=== PATIENT | male | born 1960 | race Caucasian/White ===

== ENCOUNTER 2025-02-14 06:40 | Inpatient (IN) | payer OTHER, SELFPAY ==
[2025-02-14] VITALS (17 sets, daily range): BP systolic 111–148; BP diastolic 67–90; PULSE 53–91; RESP 19–26; TEMP 36.9–37.3; O2SAT 91–95; BMI 29.0
--- NOTE | 2025-02-14 | ECHO_ITS ---
Patient Info Name: Moi Aguilar Age: 64 years : 1960 Gender: Male Ht: 67 in Wt: 185 lbs BSA: 2.01 m2 HR: 71 bpm BP: 124 / 69 mmHg Technical Quality: Good Exam Date: 02/14/2025 2:37 PM Patient Status: I Admit Date: 02/16/2025 Exam Type: CA echo dop bubble study w con Complete two-dimentional, color flow and Doppler transthoracic echocardiogram is performed with agitated saline and with contrast to opacify the left ventricle and to improve the delineation of the left ventricle endocardial borders. Staff Referring Physician: Shivani Wei Sales Superintendent: Idania Lee Attending Provider: Tucker Murray Contrast/Agitated Saline Contrast/Ag. Saline: Definity Amount: 2.00 ml Contrast/Ag. Saline: Agitated Saline Amount: 20.00 ml Summary 1. Mild LV enlargement, mild LVH, moderate LV systolic dysfunction, EF 35-40%; diastolic dysfunction is present. Inferior wall appears to be hypokinetic. Mild biatrial enlargement. Bubble study was performed, somewhat inadequate with suboptimal image quality, no large interatrial shunt was noted. Mild MR. Aortic valve is mildly sclerotic, mild aortic valve stenosis, maximum velocity 1.6 m/sec, mean gradient 11 mmHg. Unable to assess RVSP due to inadequate TR jet. Dilated IVC. Left Ventricular Outflow Tract Name Value Normal LVOT 2D LVOT Diameter 2.0 cm LVOT Doppler LVOT Peak Velocity 144 cm/s LVOT Peak Gradient 8 mmHg LVOT Mean Gradient 3 mmHg LVOT VTI 25 cm LVOT Stroke Volume 77 ml LVOT CO 5.4 l/min LVOT CI 2.7 l/min/m2 Pulmonic Valve Name Value Normal RVOT Doppler RVOT Peak Velocity 84 cm/s RVOT Peak Gradient 3 mmHg PV Doppler PV Peak Velocity 99 cm/s PV Peak Gradient 4 mmHg Mitral Valve Name Value Normal MV Diastolic Function MV E Peak Velocity 110 cm/s MV A Peak Velocity 40 cm/s MV E/A 2.8 MV Decel Time (PW) 192 ms MV Annular TDI MV E/e' (Septal) 16.4 MV E/e' (Lateral) 12.7 MV E/e' (Average) 14.6 Aortic Valve Name Value Normal AV Doppler AV Peak Velocity 166 cm/s AV Peak Gradient 11 mmHg AV Area (Cont Eq Odell) 2.6 cm2 AV DI (Odell) 0.87 AV Regurgitation 2D LVOT Area 3.0 cm2 Ventricles Name Value Normal LV Dimensions 2D/MM IVS Diastolic Thickness (2D) 1.0 cm 0.6-1.0 LVID Diastole (2D) 5.7 cm 4.2-5.8 LVIW Diastolic Thickness (2D) 1.2 cm 0.6-1.0 LVID Systole (2D) 4.7 cm 2.5-4.0 LVOT Diameter 2.0 cm LV Mass (2D Cubed) 250.68 g 88.00-224.00 LV Mass Index (2D Cubed) 124 g/m2 49-115 Relative Wall Thickness (2D) 0.41 <=0.42 LV Fractional Shortening/Ejection Fraction 2D/MM LV Fractional Shortening (2D) 19 % 25-43 LV EF (2D Teichholz) 38 % LV Diastolic Volume (4C MOD) 228 ml LV EF (4C MOD) 31 % LV Diastolic Volume (2C MOD) 261 ml LV EF (2C MOD) 36 % LV Diastolic Volume (BP MOD) 251 ml 62-150 LV Diastolic Volume Index (BP MOD) 125 ml/m2 34-74 LV Systolic Volume (BP MOD) 166 ml 21-61 LV Systolic Volume Index (BP MOD) 83 ml/m2 11-31 LV EF (BP MOD) 34 % 52-72 LV Diastolic Length (4C) 9.9 cm LV Systolic Length (4C) 8.4 cm LV Stroke Volume (4C MOD) 71 ml [place] Name Value Normal LA Dimensions LA Volume (4C A-L) 62 ml LA Volume (BP A-L) 69 ml RA Dimensions RA Systolic Major [place] Length (4C) 5.5 cm 2.1-2.7 RA Area (4C) 20.0 cm2 <=18.0 Report Signatures Amended by Sharad Dewey MD on 02/18/2025 12:03 PM
--- NOTE | ~2025-02-14 | CT_ITS ---
CTA CHEST CLINICAL HISTORY: hypoxia . COMPARISON: Chest x-ray today TECHNIQUE: Helical CTA performed from thoracic inlet to upper abdomen IV contrast information not listed in PACS Coronal, sagittal reformats. Multiplanar MIPS CT images acquired with automatic exposure control for dose reduction DLP: 666 mGy-cm FINDINGS: Significant respiratory motion artifact. Pulmonary arteries: No PE identified. Thoracic Aorta: No dissection or aneurysm. Heart/pericardium: Enlarged. RV/LV ratio: Normal. Lungs/Pleura: Interlobular septal thickening. Moderate pleural effusions. Tracheobronchial tree: Patent. Central peribronchial thickening. Nodes: No enlarged nodes. Bones: No acute bony abnormality. Soft tissues: Unremarkable. Visualized upper abdomen: Hepatomegaly, with steatosis. Probable small left adrenal adenoma. IMPRESSION: 1. No PE identified. 2. Interstitial pulmonary edema. 3. Moderate pleural effusions. 4. Cardiomegaly. Reviewed, dictated and finalized at location R.
--- NOTE | ~2025-02-14 | XR_ITS ---
Examination: XR chest 1V portable Clinical History: Shortness of breath Comparison: None Technique: Portable AP Findings: Heart size enlarged. Mildly increased interstitial markings. No acute bony abnormality. IMPRESSION: 1. Interstitial pulmonary edema and/or pneumonitis. 2. Mild cardiomegaly. Reviewed, dictated and finalized at location R.
--- NOTE | ~2025-02-14 | XR_ITS ---
EXAMINATION: XR chest 1V portable COMPARISON: No comparisons available. HISTORY: chf/shortness of breath FINDINGS: The lungs are clear, no effusion. No pneumothorax. Heart is normal size. Mediastinal and hilar contours are within normal limits. Bony thorax no acute abnormality. Miscellaneous: None Impression: No acute cardiopulmonary abnormality. Reviewed, dictated and finalized at location P. Impression: No acute cardiopulmonary abnormality.
--- NOTE | ~2025-02-14 | CT_ITS ---
EXAMINATION: CT diagnostic chest wo con DATE: 02/18/2025 10:08 INDICATION: SOB requiring oxygen TECHNIQUE: Computed tomography (CT) of the chest was performed without intravenous contrast. Additional 3D reconstructions utilizing coronal maximum intensity projection (MIP) were performed. Automated exposure control and iterative reconstruction technique were employed. The dose-length product was 28 2.35 mGy-cm. COMPARISON: None FINDINGS: Mild emphysema. Tiny bilateral pleural effusions. Dependent groundglass opacities in the bilateral lower lobes due to at least in part to mild atelectasis. There is also mild smooth septal line thickening at the bilateral lung bases suggesting minimal superimposed pulmonary edema. Calcified nodule left lower lobe consistent with old granulomatous disease. Heart size is normal. Atherosclerotic coronary artery calcific location. Small pericardial effusion. Thoracic aorta is normal in caliber. No pathologically enlarged thoracic lymphadenopathy. And visualized upper abdomen is unremarkable. Mild thoracic spondylosis. IMPRESSION: 1. Likely termination mild atelectasis and mild pulmonary edema along with tiny bilateral pleural effusions in the dependent lower lungs. 2. Mild emphysema. 3. Small pericardial effusion. Reviewed, dictated and finalized at location A.
--- NOTE | ~2025-02-14 | US_ITS ---
US venous doppler UE RT HISTORY: Pain and swelling in the right upper extremity. COMPARISON: None available. TECHNIQUE: The deep veins of the right upper extremity were evaluated with Duplex Doppler, color Doppler, and high-resolution B-mode sonography. Evaluated veins include the subclavian, axillary and brachial veins. The superficial veins including the cephalic, radial and ulnar veins were also evaluated. Cursory examination of the internal jugular veins were obtained bilaterally. Compression and augmentation maneuvers were performed. FINDINGS: The deep veins of the right upper extremity were compressible and demonstrated spontaneous phasic waveforms with an appropriate response to augmentation maneuvers. The visualized veins demonstrated normal patency. Noncompressible vessel within the antecubital fossa. IMPRESSION: Noncompressible vessel within the antecubital fossa may represent thrombus. There was no sonographic evidence of deep vein thrombosis in the right upper extremity. Reviewed, dictated and finalized at location S. IMPRESSION: Noncompressible vessel within the antecubital fossa may represent thrombus. There was no sonographic evidence of deep vein thrombosis in the right upper ex tremity.
--- NOTE | 2025-02-14 06:49 | ECG_ITS ---
Test Date: 2025-02-14 06:49:21 Measurements Intervals [place] Rate: 56 P: 0 KS: 0 QRS: -73 QRSD: 133 T: 81 QT: 459 QTc: 444 Interpretive Statements SINUS RHYTHM WITH COMPLETE HEART BLOCK JUNCTIONAL ESCAPE RHYTHM RIGHT BUNDLE BRANCH BLOCK INFERIOR INFARCT, AGE INDETERMINATE BASELINE ARTIFACT- II, III, AVF ABNORMAL ECG No previous ECG available for comparison Electronically Signed On 02-14-2025 07:43:24 CDT by Ravin Ruelas D.O.
[2025-02-14 07:06] LABS: Hematocrit 47.0 % (42.0-52.0); Hemoglobin 15.6 g/dL (14.0-18.0); Immature Granulocyte Percent A 0.6 % (0-0.5); Lymphocytes Absolute Auto 1.71 K/mm3 (0.9-3.2); Mean Corpuscular HGB Conc 33.2 g/dl (32-36); Mean Corpuscular Hemoglobin 29.7 pg (26-34); Mean Corpuscular Volume 89.4 fl (80-100); Nucleated Red Blood Cells Absolute Auto 0.000 K/mm3 (0.0-0.012); Nucleated Red Blood Cells Perc 0.0 % (0.0-0.2); Platelet Count Result 285 k/mm3 (150-375); Red Blood Count 5.26 M/mm3 (4.6-6.20); White Blood Count 14.3 K/mm3 (4.5-10.0)
[2025-02-14 07:22] LABS: Alanine Aminotransferase 30 U/L (6-50); Albumin Level 3.8 g/dL (3.5-5.1); Alkaline Phosphatase 86 U/L (38-126); Anion Gap 8 mmol/L (4-12); Aspartate Amino Transferase 35 U/L (17-59); Bilirubin,Total 1.0 mg/dL (0.2-1.3); Blood Urea Nitrogen 25 mg/dL (9-20); Calcium 9.0 mg/dL (8.4-10.2); Carbon Dioxide 25 mmol/L (22-30); Chloride 97 mmol/L (98-107); Estimated CRCL calculation 67 ml/min; Estimated Glomerular Filt Rate > 60; Glucose 313 mg/dL (65-110); Magnesium 2.0 mg/dL (1.6-2.3); Potassium 4.3 mmol/L (3.4-5.0); Sodium 130 mmol/L (137-145); Total Protein 6.7 g/dL (6.3-8.2)
--- NOTE | 2025-02-14 07:24 | ED_ITS ---
HPI - General Adult General Chief complaint: Shortness of Breath/Dyspnea Stated complaint: Shortness of Breath Time Seen by Provider: 02/14/25 06:54 History of Present Illness HPI narrative: 64-year-old male presents to the emergency department for evaluation for worsening exertional shortness of breath over the past 2 days. Patient does report multiple coworkers are sick with similar symptoms. Patient denies any chest pain but does have some shortness breath. Patient denies any abdominal pain. Does report the shortness breath is worsened with exertion. Patient was saturating at 90% room air Related Data Home Medications ?Medication ?Instructions ?Recorded ?Confirmed ?Last Taken ?Type No Home Medications 02/14/25 02/14/25 U nknown History Allergies Allergy/AdvReac Type Severity Reaction Status Date / Time No Known Allergies Allergy Verified 02/14/25 15:56 Review of Systems 2 Review of Systems: All systems reviewed & are unremarkable except as noted in HPI and below PMFSH Social History Social History Smoking packs per day: 1.5 Smoking cigarettes per day: 30.0 Years smoked: 43 Smoking pack-years: 64.50 Smoking status: Current every day smoker Tobacco type: cigarettes Alcohol intake: never Substance use: never Lack of Transportation: No Lack of Food: Never True Current Housing: I Have Housing Concerned About Future Housing: No Difficulty Paying Gas/Electric Bills: No Difficulty Paying for Meds: No Currently Unemployed: No Education: High School Diploma/GED Difficulty w/ Childcare or Family Care: No Spiritual care concerns: No Exam 2 Narrative: APPEARANCE: Well appearing, no pain, no distress, well-nourished. HEAD: normocephalic, atraumatic. EYES: PERRLA/EOMI, conjunctivae clear. NOSE: Normal no drainage EARS:TMS clear with good light reflex. THROAT: Pharynx clear, no exudate. NECK: Supple. No adenopathy, no masses. RESPIRATORY: Airway patent, respirations nonlabored. Clear to auscultation bilaterally, no rales, rhonchi, wheezing. CARDIOVASCULAR: Regular rate and rhythm without murmurs rubs or gallops. ABDOMINAL: Soft, nontender, nondistended, normal bowel sounds MUSCULOSKELETAL: Moves all extremities. Strength/ROM intact, No edema, No calf tenderness. NEURO: Alert. Cranial nerves II through XII intact. Good gait. Good coordination SKIN: Warm, dry. Normal Color Course Vital Signs Vital signs: Vital Signs Pulse Oximetry 91 02/14/25 06:57 Oxygen Delivery Room Air 02/14/25 06:57 Temperature 98.5 F 02/14/25 16:00 Pulse Rate 54 L 02/14/25 16:00 Respiratory Rate 20 02/14/25 16:00 Blood Pressure 126/69 02/14/25 16:00 Pulse Oximetry 94 02/14/25 16:00 Oxygen Delivery Nasal Cannula 02/14/25 08:13 Oxygen Flow Rate 4 02/14/25 08:13 Medical Decision Making MDM Narrative Medical decision making narrative: 64-year-old male presents emergency department for evaluation for worsening shortness of breath. Patient did develop an oxygen requirement emergency department. Patient does not typically require oxygen. Patient does have an elevated leukocytosis of 14.3 and hemoglobin of 15.6. INR is 1.2. Patient did have an elevated D-dimer 0.76. CTA was negative for pulmonary embolism but did show evidence of interstitial edema and pleural effusions. No significant abnormalities on his ABG. No significant abnormalities on his CMP other than hyperglycemia. Patient's proBNP was elevated 6540. Patient was negative influenza RSV and for COVID. Case was discussed with hospitalist patient was accepted for admission. Patient was treated with IV Lasix in the emergency department. Differential Diagnosis Differential Diagnosis: Pneumonia, COVID, RSV influenza, CHF, pleural effusion Vital Signs Vital Signs: Vital Signs Pulse Oximetry 91 02/14/25 06:57 Oxygen Delivery Room Air 02/14/25 06:57 Temperature 98.5 F 02/14/25 16:00 Pulse Rate 54 L 02/14/25 16:00 Respiratory Rate 20 02/14/25 16:00 Blood Pressure 126/69 02/14/25 16:00 Pulse Oximetry 94 02/14/25 16:00 Oxygen Delivery Nasal Cannula 02/14/25 08:13 Oxygen Flow Rate 4 02/14/25 08:13 Lab Data Lab results reviewed: Yes I reviewed the patient's lab results. 02/14/25 06:57 02/14/25 06:57 Labs: Lab Results 02/14/25 02/14/25 02/14/25 Range/Units 06:57 07:05 07:23 WBC 14.3 H (4.5-10.0) K/mm3 RBC 5.26 (4.6-6.20) M/mm3 Hgb 15.6 (14.0-18.0) g/dL Hct 47.0 (42.0-52.0) % MCV 89.4 (80-100) fl MCH 29.7 (26-34) pg MCHC 33.2 (32-36) g/dl RDW 14.0 (11.5-14.5) % Plt Count 285 (150-375) k/mm3 MPV 10.9 H (7.4-10.4) fl Immature Gran % (Auto) 0.6 H (0-0.5) % Neut % (Auto) 77.9 H (45.5-73.1) % Lymph % (Auto) 12.0 L (18.3-44.2) % [place] % (Auto) 8.3 (2.6-8.5) % Eos % (Auto) 0.6 (0-4.4) % Baso % (Auto) 0.6 (0.2-1.2) % Lymph # (Auto) 1.71 (0.9-3.2) K/mm3 [place] # (Auto) 1.2 H (0.1-0.6) K/mm3 Eos # (Auto) 0.1 (0-0.3) K/mm3 Baso # (Auto) 0.1 (0.0-0.1) K/mm3 Abs Immat Gran (auto) 0.08 H (0.00-0.031) K/mm3 Absolute Neuts (auto) 11.1 H (1.3-6.7) K/mm3 Absolute Nucleated RBC 0.000 (0.0-0.012) K/mm3 Nucleated RBC % 0.0 (0.0-0.2) % PT 14.6 (11.1-14.7) Seconds INR 1.2 APTT 30.3 (22.3-36.8) Seconds D-Dimer 0.76 H (<0.48) ug/mL Methemoglobin (0-1.5) %THb Sodium 130 L (137-145) mmol/L Potassium 4.3 (3.4-5.0) mmol/L Chloride 97 L (98-107) mmol/L Carbon Dioxide 25 (22-30) mmol/L Anion Gap 8 (4-12) mmol/L BUN 25 H (9-20) mg/dL Creatinine 0.94 (0.7-1.3) mg/dL Estim Creat Clear Calc 67 ml/min Estimated GFR > 60 (59 - ) Glucose 313 H (65-110) mg/dL Calcium 9.0 (8.4-10.2) mg/dL Magnesium 2.0 (1.6-2.3) mg/dL Total Bilirubin 1.0 (0.2-1.3) mg/dL AST 35 (17-59) U/L ALT 30 (6-50) U/L Alkaline Phosphatase 86 (38-126) U/L NT-Pro-B Natriuret Pep 6540 H (19.9-100) pg/mL Total Protein 6.7 (6.3-8.2) g/dL Albumin 3.8 (3.5-5.1) g/dL Influenza A (RT-PCR) Negative (Negative) Influenza B (RT-PCR) Negative (Negative) RSV (RT-PCR) Negative (Negative) SARS-CoV-2 RNA (RT-PCR) Negative (Negative) 02/14/25 Range/Units 08:32 WBC (4.5-10.0) K/mm3 RBC (4.6-6.20) M/mm3 Hgb (14.0-18.0) g/dL Hct (42.0-52.0) % MCV (80-100) fl MCH (26-34) pg MCHC (32-36) g/dl RDW (11.5-14.5) % Plt Count (150-375) k/mm3 MPV (7.4-10.4) fl Immature Gran % (Auto) (0-0.5) % Neut % (Auto) (45.5-73.1) % Lymph % (Auto) (18.3-44.2) % [place] % (Auto) (2.6-8.5) % Eos % (Auto) (0-4.4) % Baso % (Auto) (0.2-1.2) % Lymph # (Auto) (0.9-3.2) K/mm3 [place] # (Auto) (0.1-0.6) K/mm3 Eos # (Auto) (0-0.3) K/mm3 Baso # (Auto) (0.0-0.1) K/mm3 Abs Immat Gran (auto) (0.00-0.031) K/mm3 Absolute Neuts (auto) (1.3-6.7) K/mm3 Absolute Nucleated RBC (0.0-0.012) K/mm3 Nucleated RBC % (0.0-0.2) % PT (11.1-14.7) Seconds INR APTT (22.3-36.8) Seconds D-Dimer (<0.48) ug/mL Methemoglobin 0.1 (0-1.5) %THb Sodium (137-145) mmol/L Potassium (3.4-5.0) mmol/L Chloride (98-107) mmol/L Carbon Dioxide (22-30) mmol/L Anion Gap (4-12) mmol/L BUN (9-20) mg/dL Creatinine (0.7-1.3) mg/dL Estim Creat Clear Calc ml/min Estimated GFR (59 - ) Glucose (65-110) mg/dL Calcium (8.4-10.2) mg/dL Magnesium (1.6-2.3) mg/dL Total Bilirubin (0.2-1.3) mg/dL AST (17-59) U/L ALT (6-50) U/L Alkaline Phosphatase (38-126) U/L NT-Pro-B Natriuret Pep (19.9-100) pg/mL Total Protein (6.3-8.2) g/dL Albumin (3.5-5.1) g/dL Influenza A (RT-PCR) (Negative) Influenza B (RT-PCR) (Negative) RSV (RT-PCR) (Negative) SARS-CoV-2 RNA (RT-PCR) (Negative) ABG Data ABG results: 02/14/25 08:32 Puncture Site Left radial ABG pH 7.417 ABG pCO2 33.5 L ABG pO2 57.3 L ABG PO2/FiO2 Ratio 2.05 ABG HCO3 21.1 L ABG O2 Saturation 90.6 L ABG O2 Content 18.0 ABG Base Excess -2.5 A-a Gradient 102.8 Oxyhemoglobin 86.6 L* Carboxyhemoglobin 3.0 H Reduced Hemoglobin 10.3 H Total Hemoglobin 14.8 FiO2 28 Imaging Data Radiologist's impression: Impressions Chest X-Ray 02/14/25 07:41 IMPRESSION: 1. Interstitial pulmonary edema and/or pneumonitis. 2. Mild cardiomegaly. Chest CTA 02/14/25 08:13 IMPRESSION: 1. No PE identified. 2. Interstitial pulmonary edema. 3. Moderate pleural effusions. 4. Cardiomegaly. Discharge Plan Discharge Clinical Impression: Pleural effusion, Pulmonary edema, Elevated brain natriuretic peptide (BNP) level, Congestive heart failure, Hypoxia Patient Disposition: Still a Patient Condition: Serious
[2025-02-14] MEDS: LACTATED RINGERS 1,000 ML 999 ML IV CONT (07:28)
[2025-02-14 07:30] LABS: NT Pro B Type Natriuretic Pept 6540 pg/mL (19.9-100)
[2025-02-14] MEDS: ALBUTEROL SULFATE NEB 2.5 MG/3 ML INH INHALATION (07:37)
[2025-02-14 07:47] LABS: INR 1.2; Prothrombin Time 14.6 Seconds (11.1-14.7)
[2025-02-14 07:50] LABS: Partial Thromboplastin Time 30.3 Seconds (22.3-36.8)
--- NOTE | 2025-02-14 08:00 | PC.NURSE ---
Pt to CT via stretcher on portable monitor
--- NOTE | 2025-02-14 08:15 | PC.NURSE ---
Pt 88-89% on 2L O2. Pt O2 increased to 4L and is reading 91-92%, EDP aware
[2025-02-14 08:17] LABS: Influenza A QL RT-PCR Negative (Negative); Influenza B QL RT-PCR Negative (Negative); RSV RNA, RT-PCR Negative (Negative); SARS-CoV-2 RNA PCR Negative (Negative)
[2025-02-14 08:43] LABS: Alveolar/Arterial O2 Gradient 102.8 mmHg; Carboxyhemoglobin 3.0 % THb (0-2.0); Fractional Inspired Oxygen 28 %; HCO3 ABG 21.1 mEq/l (22.0-26.0); Methemoglobin ABG 0.1 %THb (0-1.5); Oxygen Content ABG 18.0 %vol (16.0-22.0); Oxygen Saturation ABG 90.6 % (95.0-100.0); PCO2 ABG 33.5 mmHg (35.0-45.0); PO2 ABG 57.3 mmHg (80.0-100.0); PO2 FiO2 Ratio Arterial Blood 2.05 %; Reduced Hemoglobin 10.3 %THb (0-5.0)
[2025-02-14 08:46] LABS: Modified Allen's Test Pass; Site Drawn LEFT RADIAL
[2025-02-14] MEDS: FUROSEMIDE INJ 40 MG/4 ML VIAL IV PUSH (08:54)
--- NOTE | 2025-02-14 11:02 | PC.NURSE ---
lunch tray ordered.
--- NOTE | 2025-02-14 14:35 | P.HP_ITS ---
H&P: HPI History of Present Illness Date/Time: 02/14/25 14:35 Chief Complaint: Shortness of breath Narrative: 64-year-old male presents the hospital shortness breath. He states that his shortness of breath has been getting worse over the last 2 weeks. Patient states that some of his co-worker are sick and that is what he thought it was. He states that he is no history of CHF or pulmonary edema. Patient denies fevers chills nausea or vomiting. Lab work in the ED shows leukocytosis of 14.3, D-dimer of 0.76, ABG is 7.41, pCO2 of 33, PO2 of 57, bicarb 21, sodium of 130, chloride of 97, BUN of 25, glucose at 3:13 a.m., BNP of 6540, influenza A/B RSV and COVID negative. Chest x-ray shows interstitial edema and/or pneumonitis and mild cardiomegaly. CTA shows no PE, interstitial edema, moderate pleural effusions and cardiomegaly. Review of Systems Review of Systems: 12 systems were reviewed and are negativ e except for as per HPI. [facility] Social History Social History Smoking packs per day: 1.5 Smoking cigarettes per day: 30.0 Years smoked: 43 Smoking pack-years: 64.50 Smoking status: Current every day smoker Tobacco type: cigarettes Alcohol intake: never Substance use: never Lack of Transportation: No Lack of Food: Never True Current Housing: I Have Housing Concerned About Future Housing: No Difficulty Paying Gas/Electric Bills: No Difficulty Paying for Meds: No Currently Unemployed: No Education: High School Diploma/GED Difficulty w/ Childcare or Family Care: No Spiritual care concerns: No Meds Home Medications and Allergies Home Medications ?Medication ?Instructions ?Recorded ?Confirmed ?Type No Home Medications 02/14/25 02/14/25 H istory Allergies Allergy/AdvReac Type Severity Reaction Status Date / Time No Known Allergies Allergy Verified 02/14/25 15:56 Vital Signs Vital Signs - 24 hr 02/14/25 06:57 02/14/25 07:08 02/14/25 07:10 Pulse Rate 54 L Respiratory Rate Blood Pressure Pulse Oximetry 91 94 Oxygen Delivery Room Air Nasal Cannula Oxygen Flow Rate 2 02/14/25 07:13 02/14/25 07:38 02/14/25 07:42 Pulse Rate 57 L 60 Respiratory Rate 22 H 19 Blood Pressure 127/67 Pulse Oximetry 94 91 Oxygen Delivery Nasal Cannula Oxygen Flow Rate 2 02/14/25 07:45 02/14/25 07:50 02/14/25 08:13 Pulse Rate 64 53 L Respiratory Rate 21 H 24 H Blood Pressure 129/69 Pulse Oximetry 93 92 Oxygen Delivery Nasal Cannula Oxygen Flow Rate 2 02/14/25 08:13 02/14/25 09:00 02/14/25 10:44 Pulse Rate 76 71 Respiratory Rate 22 H 26 H Blood Pressure 148/90 H 143/77 H Pulse Oximetry 92 92 94 Oxygen Delivery Nasal Cannula Oxygen Flow Rate 4 02/14/25 13:51 Pulse Rate 91 Respiratory Rate 25 H Blood Pressure 124/69 Pulse Oximetry 94 Oxygen Delivery Oxygen Flow Rate Exam Narrative: General: well appearing, appears stated age. HEENT: normocephalic, atraumatic. Mucous membranes moist. EOMI, PERRLA, bilateral sclera anicteric, no conjunctival injection. Neck supple without JVD, lymphadenopathy, or bruit. Respiratory: clear to ascultation bilaterally. No rales/rhonic/wheezes. Cardiovascular: Regular rate and rhythm, normal S1-S2 upon ascultation. No murmurs, rubs, or clicks. PMI is nondisplaced, capillary refill less than 3 second. Abdomen: Soft, round, no pulsatile masses, nondistended and nontender. No rebound, no guarding. No CVA tenderness, no hepatosplenomegaly. Bowel sounds present to all four quadrants. No high pitch or tinkling sounds, resonant to percussion. Extremities: No cyanosis, clubbing, or edema present. Pulses are palpable 2/2. Active ROM to all four extremities. Neuro: Alert and orientated x 4. PERRLA. Cranial nerves 2-12 intact without focal deficit. Skin: Warm, dry, and intact, without rash, erythema, or lesion. Psych: pleasant, cooperative, normal speech, normal affect, no hallucinations, no dysarthia 4 L nasal cannula H&P: Results Labs Labs: Short CBC 02/14/25 Range/Units 06:57 WBC 14.3 H (4.5-10.0) K/mm3 Hgb 15.6 (14.0-18.0) g/dL Hct 47.0 (42.0-52.0) % Plt Count 285 (150-375) k/mm3 BMP 02/14/25 06:57 Sodium 130 L Potassium 4.3 Chloride 97 L Carbon Dioxide 25 BUN 25 H Creatinine 0.94 Glucose 313 H Calcium 9.0 Liver Function 02/14/25 Range/Units 06:57 Total Bilirubin 1.0 (0.2-1.3) mg/dL AST 35 (17-59) U/L ALT 30 (6-50) U/L Alkaline Phosphatase 86 (38-126) U/L Albumin 3.8 (3.5-5.1) g/dL Assessment and Plan Assessment and plan (1) Pulmonary edema: Code(s): J81.1 - Chronic pulmonary edema Status: Acute Assessment and Plan: BNP on admission 6540 Cardiology consulted IV Lasix given in emergency room Echo with bubble study IV Lasix daily (2) Pleural effusion: Code(s): J90 - Pleural effusion, not elsewhere classified Status: Acute Assessment and Plan: Will treat with diuretics No need for thoracentesis at this time (3) Acute respiratory failure: Code(s): J96.00 - Acute respiratory failure, unspecified whether with hypoxia or hypercapnia Status: Acute Assessment and Plan: Secondary to above Currently on 4 L nasal cannula, tachypneic Wean oxygen as able (4) Leukocytosis: Code(s): D72.829 - Elevated white blood cell count, unspecified Status: Acute Assessment and Plan: No pneumonia seen on CT UA no signs of infection Denies fevers chills nausea vomiting (5) Hyponatremia: Code(s): E87.1 - Hypo-osmolality and hyponatremia Status: Acute Assessment and Plan: Will treat with diuretics (6) Hyperglycemia: Code(s): R73.9 - Hyperglycemia, unspecified Status: Acute Assessment and Plan: Edson garcia HS SSI Quality VTE Prophylaxis VTE prophylaxis: mechanical ordered and pharmacologic ordered Hospitalist MIPS Advance Care Plan I have confirmed that the patient's Advanced Care Plan is present, code status is documented, or surrogate decision maker is listed in patient medical record.: Yes Medication Reconciliation I have utilized all available resources to obtain, update and review the patients current medications (includes all prescriptions, OTC, herbals, cannabis, and nutritional supplements).: Yes
[2025-02-14] MEDS: PERFLUTREN LIPID MICROSPHERES 1.5 ML VIAL DILUTED TO 10 ML TOTAL VOLUME IV PUSH (15:05)
--- NOTE | 2025-02-14 15:06 | IVDEFINITY ---
Prior to administration of IV Definity the patient was educated on the risks and benefits of the imaging enhancing agent including potential adverse side effects. The patient verbalized understanding. Allergies were verified. No exclusion criteria were identified and at least one of the following inclusion criteria were met: 1) physician request, 2) patient technically difficult to image (per the [place] [employer] guidelines of two or more segments not discernable within the apical view), or 3) questionable left ventricular function. ?
--- NOTE | 2025-02-14 18:05 | PC.NURSE ---
Patient arrived to the floor via stretcher from the ER. Denies chest pain at this time. States that he is feeling better. On 4L/NC, denies shortness of breath at this time. residential monitor placed on and functioning at this time. Vital signs obtained and stable. Patient ambulatory with a steady gait at this time. No acute distress noted.
[2025-02-14 20:41] LABS: Add Urine Microscopic? YES; Appearance Urine Clear (Clear); Glucose Urine UA 3+ mg/dL (Negative); Leukocyte Esterase Ur Negative LEU/UL (Negative); Nitrate Urine Negative (Negative); Non Pathogenic Casts 0-2; Specific Grav Ur 1.035 (1.001-1.035)
[2025-02-15] VITALS (32 sets, daily range): BP systolic 118–148; BP diastolic 57–88; PULSE 52–71; RESP 13–28; TEMP 36.3–37.1; O2SAT 88–99
[2025-02-15 04:57] LABS: Hematocrit 44.1 % (42.0-52.0); Hemoglobin 14.5 g/dL (14.0-18.0); Immature Granulocyte Percent A 0.4 % (0-0.5); Lymphocytes Absolute Auto 2.44 K/mm3 (0.9-3.2); Mean Corpuscular HGB Conc 32.9 g/dl (32-36); Mean Corpuscular Hemoglobin 29.7 pg (26-34); Mean Corpuscular Volume 90.2 fl (80-100); Nucleated Red Blood Cells Absolute Auto 0.000 K/mm3 (0.0-0.012); Nucleated Red Blood Cells Perc 0.0 % (0.0-0.2); Platelet Count Result 259 k/mm3 (150-375); Red Blood Count 4.89 M/mm3 (4.6-6.20); White Blood Count 13.8 K/mm3 (4.5-10.0)
[2025-02-15 05:17] LABS: Anion Gap 5 mmol/L (4-12); Blood Urea Nitrogen 16 mg/dL (9-20); Calcium 8.2 mg/dL (8.4-10.2); Carbon Dioxide 31 mmol/L (22-30); Chloride 100 mmol/L (98-107); Estimated CRCL calculation 70 ml/min; Estimated Glomerular Filt Rate > 60; Glucose 159 mg/dL (65-110); Potassium 3.6 mmol/L (3.4-5.0); Sodium 136 mmol/L (137-145)
[2025-02-15] MEDS: FUROSEMIDE INJ 40 MG/4 ML VIAL IV PUSH (08:06)
[2025-02-15] MEDS: ENOXAPARIN 40 MG/0.4 ML SYRINGE SUB-Q (08:06)
--- NOTE | 2025-02-15 08:54 | PM.CNCAR ---
Assessment and Plan Assessment and plan (1) Congestive heart failure: Code(s): I50.9 - Heart failure, unspecified Status: Acute Assessment and Plan: 64-year-old male with no known prior cardiac history; heavy tobacco abuse presents with 2 day history of shortness of breath and cough with expectoration. Influenza a/B and COVID negative. CT negative for PE. NTproBNP elevated. EKG shows sinus rhythm, high-grade AV block with junctional escape rhythm. On telemetry, he has been in sinus rhythm/sinus bradycardia with PVCs. -clinical presentation suggestive of CHF with likely underlying COPD/emphysema given patient's heavy tobacco abuse. Check echo with Doppler to assess LV/RV function rule out any major structural heart disease. -continue IV diuresis with furosemide with close monitoring of electrolytes and renal function. -due to high-grade AV block at presentation, avoid any AV pablo blocking agents. -evaluation for underlying possible COPD/emphysema as per primary team. Bronchodilators as needed. -continue telemetry monitoring (2) Tobacco abuse: Code(s): Z72.0 - Tobacco use Status: Acute Assessment and Plan: Smoking cessation counseling was done History of Present Illness History of Present Illness Consult date/time: 02/15/25 08:54 Requesting physician: Amaris Roberts APRN Reason For Visit: CHF, Hypoxia Narrative: DATE OF CONSULT: 02/15/2025 REASON FOR CONSULT: CHF REQUESTING PHYSICIAN: Alejandra GODDARD CHIEF COMPLAINT: Shortness of breath HPI: 64-year-old male with no known prior cardiac history; heavy tobacco abuse. Patient presented to [facility] Emergency Room on 02/14/2025 with complaints of shortness of breath that started 2 days prior to arrival. His symptoms are associated with cough with expectoration. Patient states that he had some coworkers with similar symptoms. No chest pain. No dizziness or syncope. Patient denies any prior cardiac history including ID, angina, heart failure or any known arrhythmias. Influenza a/B and COVID negative. EKG on my personal interpretation showed sinus rhythm; high-grade AV block. On telemetry, he has been in sinus rhythm/sinus bradycardia with PVCs. SpO2 91% at presentation. Chest x-ray showed Interstitial pulmonary edema and/or pneumoniti; mild cardiomegaly. CT chest negative for PE; showed Interstitial pulmonary lópez; moderate pleural effusions, cardiomegaly. NT proBNP elevated at 6540. Patient is a heavy smoker, smokes 1.5 packs per day. Occasional alcohol, no illicit drugs. 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 Review of Systems Review of Systems: General: Negative for fever, chills, fatigue Psychological: Negative for anxiety, depression Ophthalmic: negative for loss of vision ENT: Negative for epistaxis, headaches Allergy and immunology: Negative for hives, nasal congestion Hematologic and lymphatic: Negative for overt bleeding problems Endocrine: Negative for hot flashes, palpitations Respiratory: Positive for cough, dyspnea Cardiovascular: Negative for chest pain, positive for dyspnea Gastrointestinal: Negative for abdominal pain, nausea, vomiting, hematochezia Musculoskeletal: Negative for myalgia, joint pains Neurological: Negative for weakness Dermatological: Negative for rash, skin discoloration PMFSH Social History Social History Smoking packs per day: 1.5 Smoking cigarettes per day: 30.0 Years smoked: 43 Smoking pack-years: 64.50 Smoking status: Current every day smoker Tobacco type: cigarettes Alcohol intake: never Substance use: never Lack of Transportation: No Lack of Food: Never True Current Housing: I Have Housing Concerned About Future Housing: No Difficulty Paying Gas/Electric Bills: No Difficulty Paying for Meds: No Currently Unemployed: No Education: High School Diploma/GED Difficulty w/ Childcare or Family Care: No Spiritual care concerns: No Meds Home Medications and Allergies Home Medications ?Medication ?Instructions ?Recorded ?Confirmed ?Type No Home Medications 02/14/25 02/14/25 History Allergies Allergy/AdvReac Type Severity Reaction Status Date / Time No Known Allergies Allergy Verified 02/14/25 15:56 Vital Signs Vital Signs - 24 hr 02/14/25 09:00 02/14/25 10:44 02/14/25 13:51 Temperature Pulse Rate 76 71 91 Respiratory Rate 22 H 26 H 25 H Blood Pressure 148/90 H 143/77 H 124/69 Pulse Oximetry 92 94 94 Oxygen Delivery Oxygen Flow Rate 02/14/25 15:05 02/14/25 16:00 02/14/25 16:00 Temperature 36.9 C Pulse Rate 80 58 L 54 L Respiratory Rate 20 20 Blood Pressure 132/77 126/69 Pulse Oximetry 94 94 Oxygen Delivery Oxygen Flow Rate 02/14/25 18:00 02/14/25 20:00 02/14/25 20:00 Temperature 37.3 C Pulse Rate 59 L 69 Respiratory Rate 22 H Blood Pressure 111/70 Pulse Oximetry 95 Oxygen Delivery CPAP Oxygen Flow Rate 02/14/25 20:00 02/14/25 22:00 02/15/25 00:00 Temperature 36.6 C Pulse Rate 59 L 56 L 63 Respiratory Rate 28 H Blood Pressure 127/76 Pulse Oximetry 99 Oxygen Delivery Oxygen Flow Rate 02/15/25 00:00 02/15/25 00:00 02/15/25 02:15 Temperature Pulse Rate 66 52 L Respiratory Rate Blood Pressure Pulse Oximetry 99 Oxygen Delivery High Flow Nasal Cannula Oxygen Flow Rate 3 02/15/25 04:00 02/15/25 04:00 02/15/25 04:00 Temperature 36.6 C Pulse Rate 60 66 Respiratory Rate 20 Blood Pressure 128/57 L Pulse Oximetry 90 99 Oxygen Delivery High Flow Nasal Cannula Oxygen Flow Rate 3 02/15/25 06:00 02/15/25 07:56 02/15/25 07:56 Temperature 36.7 C Pulse Rate 54 L 68 Respiratory Rate 20 Blood Pressure 118/62 Pulse Oximetry 91 95 Oxygen Delivery Nasal Cannula Oxygen Flow Rate 3 Exam Narrative: PHYSICAL EXAMINATION: GENERAL: Alert, oriented, no acute distress MENTAL STATUS: affect appropriate to mood EYES: Extraocular movements intact, no pallor EARS: External ears appear normal, hearing grossly normal NOSE: Normal and patent, no discharge MOUTH: Mucous membranes moist, tongue normal NECK: Supple, no JVD CHEST: Coarse breath sounds HEART: Normal rate, regular rhythm with ectopic beats ABDOMEN: Soft, nontender NEUROLOGICAL: Alert, oriented, normal speech, no gross motor deficits MUSCULOSKELETAL: No major deformity, no amputation EXTREMITIES: No pedal edema, no clubbing, no cyanosis SKIN: no rash on the exposed area, no cyanosis PSYCHIATRIC: Normal mood, appropriate affect Results Labs and Meds 02/15/25 04:03 02/15/25 04:03 Lab results: CBC 02/15/25 Range/Units 04:03 WBC 13.8 H (4.5-10.0) K/mm3 RBC 4.89 (4.6-6.20) M/mm3 Hgb 14.5 (14.0-18.0) g/dL Hct 44.1 (42.0-52.0) % Plt Count 259 (150-375) k/mm3 Lymph # (Auto) 2.44 (0.9-3.2) K/mm3 [place] # (Auto) 1.5 H (0.1-0.6) K/mm3 Eos # (Auto) 0.2 (0-0.3) K/mm3 Baso # (Auto) 0.1 (0.0-0.1) K/mm3 Comprehensive Metabolic Panel 02/15/25 Range/Units 04:03 Sodium 136 L (137-145) mmol/L Potassium 3.6 (3.4-5.0) mmol/L Chloride 100 (98-107) mmol/L Carbon Dioxide 31 H (22-30) mmol/L BUN 16 (9-20) mg/dL Creatinine 0.90 (0.7-1.3) mg/dL Glucose 159 H (65-110) mg/dL Calcium 8.2 L (8.4-10.2) mg/dL Intake and Output 02/14/25 02/15/25 02/15/25 23:59 07:59 15:59 Intake Total 840 540 Output Total 900 150 Balance -60 390 Intake: Oral 840 540 Output: Urine 900 150 Patient Weight 02/15/25 23:59 Weight 87.4 kg
[2025-02-15 10:07] LABS: Thyroid Stimulating Hormone Reflex 4.720 uIU/mL (0.465-4.68)
[2025-02-15 10:09] LABS: Troponin I 3.110 ng/mL (0.000-0.034)
--- NOTE | 2025-02-15 10:21 | PC.NURSE ---
Reported critical troponin to Dr. Dewey. Orders to place patient NPO for possible cardiac cath procedure. Patient updated on the labs results and the possible procedure. carriage dogger notified of possible procedure.
[2025-02-15 10:49] LABS: Free T4 Free Thyroxine Reflex 0.87 ng/dL (0.78-2.19)
[2025-02-15 11:30] LABS: Total Triiodothyronine (T3) 0.88 NG/ML (0.82-1.58)
--- NOTE | 2025-02-15 11:39 | WPDMODSED ---
Moderate Sedation Note-Pt Data Patient Data Allergies Allergy/AdvReac Type Severity Reaction Status Date / Time No Known Allergies Allergy Verified 02/14/25 15:56 Home Medications ?Medication ?Instructions ?Recorded ?Confirmed ?Type No Home Medications 02/14/25 02/14/25 History Current Medications: Active Medications Acetaminophen (Acetaminophen 325 Mg Tablet) 650 mg PO Q4H PRN PRN Reason: Mild Pain (1-3) or Fever Albuterol/Ipratropium (Ipratropium 0.5 Mg/Albuterol Sulfate 2.5 Mg (Base) Ampul.Neb 3 Ml) 3 ml INHALATION Q6HRT DEYA Docusate Sodium (Docusate Sodium 100 Mg Capsule) 100 mg PO BID PRN PRN Reason: Constipation Enoxaparin Sodium (Enoxaparin 40 Mg/0.4 Ml Syringe) 40 mg SUB-Q DAILY [facility] Last Admin: 02/15/25 08:06 Dose: 40 mg Furosemide (Furosemide Inj 40 Mg/4 Ml Vial) 40 mg IV PUSH DAILY [facility] Last Admin: 02/15/25 08:06 Dose: 40 mg Sedation/Anesthesia: No previous sedation/anesthesia problems (including family history). [facility] Social History Social History Smoking packs per day: 1.5 Smoking cigarettes per day: 30.0 Years smoked: 43 Smoking pack-years: 64.50 Smoking status: Current every day smoker Tobacco type: cigarettes Alcohol intake: never Substance use: never Lack of Transportation: No Lack of Food: Never True Current Housing: I Have Housing Concerned About Future Housing: No Difficulty Paying Gas/Electric Bills: No Difficulty Paying for Meds: No Currently Unemployed: No Education: High School Diploma/GED Difficulty w/ Childcare or Family Care: No Spiritual care concerns: No Mod Sed Physical Exam Physical Exam Pre Procedural Exam: Normal: Airway Hours since solid foods: 6 Hours since liquid intake: 6 Mallampati Classification: class II Internal Medicine - PN: Obj Da Vital Signs Vital Signs: Vital Signs - 24 hr 02/14/25 13:51 02/14/25 15:05 02/14/25 16:00 Temperature Pulse Rate 91 80 58 L Respiratory Rate 25 H 20 Blood Pressure 124/69 132/77 Pulse Oximetry 94 94 Oxygen Delivery Oxygen Flow Rate 02/14/25 16:00 02/14/25 18:00 02/14/25 20:00 Temperature 36.9 C 37.3 C Pulse Rate 54 L 59 L 69 Respiratory Rate 20 22 H Blood Pressure 126/69 111/70 Pulse Oximetry 94 95 Oxygen Delivery Oxygen Flow Rate 02/14/25 20:00 02/14/25 20:00 02/14/25 22:00 Temperature Pulse Rate 59 L 56 L Respiratory Rate Blood Pressure Pulse Oximetry Oxygen Delivery CPAP Oxygen Flow Rate 02/15/25 00:00 02/15/25 00:00 02/15/25 00:00 Temperature 36.6 C Pulse Rate 63 66 Respiratory Rate 28 H Blood Pressure 127/76 Pulse Oximetry 99 99 Oxygen Delivery High Flow Nasal Cannula Oxygen Flow Rate 3 02/15/25 02:15 02/15/25 04:00 02/15/25 04:00 Temperature 36.6 C Pulse Rate 52 L 60 66 Respiratory Rate 20 Blood Pressure 128/57 L Pulse Oximetry 90 Oxygen Delivery Oxygen Flow Rate 02/15/25 04:00 02/15/25 06:00 02/15/25 07:56 Temperature Pulse Rate 54 L Respiratory Rate Blood Pressure Pulse Oximetry 99 91 Oxygen Delivery High Flow Nasal Cannula Nasal Cannula Oxygen Flow Rate 3 3 02/15/25 07:56 02/15/25 08:00 02/15/25 09:31 Temperature 36.7 C Pulse Rate 68 61 59 L Respiratory Rate 20 Blood Pressure 118/62 Pulse Oximetry 95 Oxygen Delivery Oxygen Flow Rate 02/15/25 11:05 02/15/25 11:31 Temperature 36.9 C Pulse Rate 57 L Respiratory Rate 18 Blood Pressure 120/78 Pulse Oximetry 90 92 Oxygen Delivery Nasal Cannula Oxygen Flow Rate 3 Intake/Output Intake/Output: Intake & Output 02/12/25 02/13/25 02/14/25 02/15/25 23:59 23:59 23:59 23:59 Intake Total 1840 780 Output Total 900 150 Balance 940 630 Meds/Results Medications: Active Medications Generic Name Dose Route Start Last Admin Trade Name Freq PRN Reason Stop Dose Admin Acetaminophen 650 mg 02/14/25 15:07 Acetaminophen 325 Mg Tablet PO Q4H PRN Mild Pain (1-3) or Fever Albuterol/Ipratropium 3 ml 02/15/25 14:00 Ipratropium 0.5 Mg/Albuterol Sulfate 2.5 Mg (Base) Ampul.Neb 3 Ml INHALATION Q6HRT DEYA Docusate Sodium 100 mg 02/14/25 15:07 Docusate Sodium 100 Mg Capsule PO BID PRN Constipation Enoxaparin Sodium 40 mg 02/15/25 09:00 02/15/25 08:06 Enoxaparin 40 Mg/0.4 Ml Syringe SUB-Q 40 mg DAILY DEYA Administration Furosemide 40 mg 02/15/25 09:00 02/15/25 08:06 Furosemide Inj 40 Mg/4 Ml Vial IV PUSH 40 mg DAILY DEYA Administration Radiology Results: ITS Impressions Chest X-Ray 02/14/25 07:41 IMPRESSION: 1. Interstitial pulmonary edema and/or pneumonitis. 2. Mild cardiomegaly. Chest CTA 02/14/25 08:13 IMPRESSION: 1. No PE identified. 2. Interstitial pulmonary edema. 3. Moderate pleural effusions. 4. Cardiomegaly. Labs 02/15/25 04:03 02/15/25 04:03 Labs: Laboratory Results - last 24 hr 02/14/25 02/15/25 02/15/25 20:26 04:03 09:32 WBC 13.8 H RBC 4.89 Hgb 14.5 Hct 44.1 MCV 90.2 MCH 29.7 MCHC 32.9 RDW 13.2 Plt Count 259 MPV 10.7 H Immature Gran % (Auto) 0.4 Neut % (Auto) 68.5 Lymph % (Auto) 17.7 L Dillon % (Auto) 11.0 H Eos % (Auto) 1.7 Baso % (Auto) 0.7 Lymph # (Auto) 2.44 Dillon # (Auto) 1.5 H Eos # (Auto) 0.2 Baso # (Auto) 0.1 Abs Immat Gran (auto) 0.05 H Absolute Neuts (auto) 9.4 H Absolute Nucleated RBC 0.000 Nucleated RBC % 0.0 Sodium 136 L Potassium 3.6 Chloride 100 Carbon Dioxide 31 H Anion Gap 5 BUN 16 Creatinine 0.90 Estim Creat Clear Calc 70 Estimated GFR > 60 Glucose 159 H Calcium 8.2 L Troponin I 3.110 H* TSH (Reflex) 4.720 H Free T4 0.87 Total T3 0.88 Urine Color Yellow Urine Appearance Clear Urine pH 6.0 Ur Specific [place] 1.035 Urine Protein Trace Urine Glucose (UA) 3+ H Urine Ketones Negative Ur Blood (Man) Negative Urine Nitrate Negative Urine Bilirubin Negative Urine Urobilinogen 1.0 Leukocyte Esterase Rfl Negative Urine RBC 0-2 Urine WBC 0-5 Ur Squamous Epith Cells None seen Urine Bacteria None seen Urine Casts 0-2 ASA Classification/Sedation ASA Classification/Sedation ASA Class: IV Emergent: No Risks: Risks, benefits and alternatives explained and patient/family accepted plan for sedation. Patient re-evaluated immediately prior to sedation.
--- NOTE | 2025-02-15 13:38 | WPDCARDPROC ---
Cardiac Cath Procedure Note Date of procedure:: 02/15/25 Performing physician:: Sharad Dewey MD Procedure Procedure note:: CARDIAC CATHETERIZATION AND PERCUTANEOUS CORONARY INTERVENTION REPORT DATE OF PROCEDURE: 02/15/2025 INDICATION FOR PROCEDURE: Non ST-elevation WI, CHF with reduced ejection fraction, BRIEF CLINICAL HISTORY: 64-year-old male with no known prior cardiac history; heavy tobacco abuse. Patient presented to [facility] with 2 day history of shortness of breath and cough with expectoration. Influenza A/B and COVID negative. CT negative for PE. NTproBNP elevated. EKG showed sinus rhythm, high-grade AV block with junctional escape rhythm. On telemetry, he has been in sinus rhythm/sinus bradycardia with PVCs. Patient's 1st troponin was elevated at 3.1. His echocardiogram showed moderate LV systolic dysfunction with LVEF 35-40%, inferior wall hypokinesis. After discussing benefits, risks and alternatives, patient and his family were willing to proceed with cardiac catheterization to evaluate coronary anatomy. Benefits and risks of the procedure were discussed with the patient in depth, and informed consent was obtained prior to the procedure. Risks of the procedure include but are not limited to vascular complications including groin hematoma, retroperitoneal bleed, vessel perforation; periprocedural WI, cardiac arrhythmias, stroke, contrast induced nephropathy, and . After discussing all the benefits, risks and alternatives, patient was willing to proceed with the procedure. PROCEDURES PERFORMED: 1. Left heart catheterization- Selective left and right coronary angiogram; left ventriculogram and hemodynamic assessment 2. Percutaneous coronary intervention-attempted PCI on chronic total occlusion of proximal left circumflex artery 3. Moderate sedation-CPT code 28053 and beyond MODERATE SEDATION: Midazolam 1 mg; fentanyl 25 mcg. Start time 1250 , Stop time 1330 ; Total byxg-rr-odet time 40 minutes; David Burroughs RN was trained observer for moderate sedation. ACCESS SITE: Right radial artery PROCEDURE NOTE: After obtaining informed consent, patient was brought to catheterization lab and prepped and draped in a usual sterile manner. After local anesthesia with lidocaine, right radial artery access was taken with micropuncture needle followed by insertion of a 6 Montenegrin sheath. Patient received 2.5 mg of verapamil, 200 mcg of nitroglycerin through the arterial sheath; and 5000 units of unfractionated heparin IV for the diagnostic portion of the procedure. Selective left and right coronary angiogram was performed using 5 Montenegrin JL4 and JR4 catheters respectively. Orthogonal views were taken. During PCI, the guide catheter dropped into the LV cavity, LV pressure measurement was performed followed by gradients there was aortic valve. After completion of procedure, radial band was applied with good hemostasis. Patient tolerated procedure well without any immediate procedure related complications. FINDINGS: LEFT MAIN CORONARY: Medium caliber vessel with taper in the distal segment. LEFT ANTERIOR DESCENDING ARTERY: Medium caliber vessel, tapers distally and reaches LV apex. The vessel becomes diminutive in the distal segment. There is moderate about 40-50% stenosis in the mid segment. Diagonal branch is small caliber vessel. Sluggish blood flow is seen in the LAD. LEFT CIRCUMFLEX ARTERY: The proximal most part of the left circumflex artery is small to medium caliber vessel. The vessel is totally occluded in the proximal segment which appears to be chronic total occlusion. RIGHT CORONARY ARTERY: Medium to large caliber, tortuous vessel. There is diffuse 20-40% plaque in the proximal segment; and hazy [id number] stenosis in the distal segment. The vessel gives rise to medium to large caliber PDA branch which has diffuse 40-60% stenosis. LEFT VENTRICULOGRAM: LVEDP 24 mmHg. Left ventriculogram was not performed. HEMODYNAMIC ASSESSMENT: Opening pressure 105/74 mmHg, closing pressure 129/72 mmHg, LVEDP 24 mmHg; no significant gradient across aortic valve on the pullback of pigtail catheter. INTERVENTION REPORT: Patient presented with shortness of breath, echocardiogram showed moderate LV systolic dysfunction with inferior wall hypokinesis. Troponins were elevated. Coronary angiogram showed totally occluded proximal left circumflex artery. Therefore, we proceeded with the PCI. Bivalirudin was used for procedural anticoagulation. The left main coronary artery ostium was selectively engaged using 6 Montenegrin 3.5 EBU guide catheter. The left circumflex artery arises as a sharp bend from the left main coronary artery which made procedure challenging. Multiple available guidewires including Drafter (Cad) Electrical 150, whisper, luge wire were used, however, the stenosis could only be partially crossed. The stenosis appeared to be chronic total occlusion. No additional attempts were made. Final angiogram showed preserved flow in the LAD. Radial band was applied for local hemostasis. CONCLUSIONS: 1. CAD: a) total occluded smaller-caliber proximal left circumflex artery (likely chronic total occlusion); b) diffuse about 40-50% stenosis mid LAD with slightly sluggish blood flow; c) 20-40% diffuse stenosis proximal RCA; 40-60% diffuse stenosis RPDA. 2. LVEDP elevated at 24 mmHg. LVEF 35-40% on echo. PLAN/RECOMMENDATIONS: 1. Medical treatment including dual antiplatelet treatment with aspirin and clopidogrel (avoiding ticagrelor due to AV block); high-dose statin. Continue diuresis for CHF. Initiate sacubitril/valsartan, empagliflozin and spironolactone. Hold off on beta-idalia for now due to AV block. 2. Check labs including serial troponins, lipid panel, HbA1c. 3. Continue to monitor on telemetry for any recurrent arrhythmia. 4. Smoking cessation. This document was completed by using [employer] speech recognition software, therefore, director alumni relations variances may occur.
--- NOTE | 2025-02-15 13:58 | PC.NURSE ---
Patient arrived to ICU room 6 at 1358 post clinical lab clerk intervention. Patient arrived with TR band to right wrist with 12 cc of air inflated in balloon.
[2025-02-15] MEDS: IPRATROPIUM 0.5 MG/ALBUTEROL SULFATE 2.5 MG (BASE) AMPUL.NEB 3 ML INHALATION ×2 (14:23→20:42)
[2025-02-15 14:39] LABS: Hemoglobin A1C 7.8 % (<5.7)
[2025-02-15 14:50] LABS: Troponin I 3.130 ng/mL (0.000-0.034)
[2025-02-15] MEDS: CLOPIDOGREL BISULFATE 75 MG TABLET PO (14:57)
[2025-02-15] MEDS: SODIUM CHLORIDE 0.9% IV 300 ML 100 ML IV CONT (14:57)
[2025-02-15 15:31] LABS: Thyroid Stimulating Hormone Reflex 3.670 uIU/mL (0.465-4.68)
--- NOTE | 2025-02-15 17:17 | P.PNIM_ITS ---
Progress Note: A&P Assessment and Plan (1) Pulmonary edema: Code(s): J81.1 - Chronic pulmonary edema Status: Acute Assessment and Plan: BNP on admission 6540 Cardiology consulted IV Lasix given in emergency room Echo with bubble study IV Lasix daily, Entresto, Spironolactone, Jardiance (2) Pleural effusion: Code(s): J90 - Pleural effusion, not elsewhere classified Status: Acute Assessment and Plan: Will treat with diuretics No need for thoracentesis at this time (3) Acute respiratory failure: Code(s): J96.00 - Acute respiratory failure, unspecified whether with hypoxia or hypercapnia Status: Acute Assessment and Plan: Secondary to above Currently on 4 L nasal cannula, tachypneic Wean oxygen as able (4) Leukocytosis: Code(s): D72.829 - Elevated white blood cell count, unspecified Status: Acute Assessment and Plan: No pneumonia seen on CT UA no signs of infection Denies fevers chills nausea vomiting (5) Hyponatremia: Code(s): E87.1 - Hypo-osmolality and hyponatremia Status: Acute Assessment and Plan: Will treat with diuretics (6) Hyperglycemia: Code(s): R73.9 - Hyperglycemia, unspecified Status: Acute Assessment and Plan: Accu-Cheks a.c. HS SSI Plan Elevated troponin Troponin 3.11 Aspirin, Plavix, Lipitor for cardiac cath today cardiology following DVT prophylaxis on Sq Lovenox Subjective Date/time seen: 02/15/25 17:17 Interval history: Comfortable at bedside, awaiting cardiac cath at the time of this encounter this morning Review of Systems Review of Systems: 12 systems were reviewed and are negativ e except for as per HPI. Exam Narrative: General: well appearing, appears stated age. HEENT: normocephalic, atraumatic. Mucous membranes moist. EOMI, PERRLA, bilateral sclera anicteric, no conjunctival injection. Neck supple without JVD, lymphadenopathy, or bruit. Respiratory: clear to ascultation bilaterally. No rales/rhonic/wheezes. Cardiovascular: Regular rate and rhythm, normal S1-S2 upon ascultation. No murmurs, rubs, or clicks. PMI is nondisplaced, capillary refill less than 3 second. Abdomen: Soft, round, no pulsatile masses, nondistended and nontender. No rebound, no guarding. No CVA tenderness, no hepatosplenomegaly. Bowel sounds present to all four quadrants. No high pitch or tinkling sounds, resonant to percussion. Extremities: No cyanosis, clubbing, or edema present. Pulses are palpable 2/2. Active ROM to all four extremities. Neuro: Alert and orientated x 4. PERRLA. Cranial nerves 2-12 intact without focal deficit. Skin: Warm, dry, and intact, without rash, erythema, or lesion. Psych: pleasant, cooperative, normal speech, normal affect, no hallucinations, no dysarthia 4 L nasal cannula Objective Data Vital Signs Vital Signs: Vital Signs - 24 hr 02/14/25 18:00 02/14/25 20:00 02/14/25 20:00 Temperature 99.2 F Pulse Rate 59 L 69 Respiratory Rate 22 H Blood Pressure 111/70 Pulse Oximetry 95 Oxygen Delivery CPAP Oxygen Flow Rate 02/14/25 20:00 02/14/25 22:00 02/15/25 00:00 Temperature 97.9 F Pulse Rate 59 L 56 L 63 Respiratory Rate 28 H Blood Pressure 127/76 Pulse Oximetry 99 Oxygen Delivery Oxygen Flow Rate 02/15/25 00:00 02/15/25 00:00 02/15/25 02:15 Temperature Pulse Rate 66 52 L Respiratory Rate Blood Pressure Pulse Oximetry 99 Oxygen Delivery High Flow Nasal Cannula Oxygen Flow Rate 3 02/15/25 04:00 02/15/25 04:00 02/15/25 04:00 Temperature 97.8 F Pulse Rate 60 66 Respiratory Rate 20 Blood Pressure 128/57 L Pulse Oximetry 90 99 Oxygen Delivery High Flow Nasal Cannula Oxygen Flow Rate 3 02/15/25 06:00 02/15/25 07:56 02/15/25 07:56 Temperature 98.0 F Pulse Rate 54 L 68 Respiratory Rate 20 Blood Pressure 118/62 Pulse Oximetry 91 95 Oxygen Delivery Nasal Cannula Oxygen Flow Rate 3 02/15/25 08:00 02/15/25 09:31 02/15/25 11:05 Temperature Pulse Rate 61 59 L Respiratory Rate Blood Pressure Pulse Oximetry 90 Oxygen Delivery Nasal Cannula Oxygen Flow Rate 3 02/15/25 11:31 02/15/25 12:00 02/15/25 13:58 Temperature 98.4 F 97.8 F Pulse Rate 57 L 58 L 53 L Respiratory Rate 18 20 Blood Pressure 120/78 125/76 Pulse Oximetry 92 92 Oxygen Delivery Oxygen Flow Rate 02/15/25 14:00 02/15/25 14:00 02/15/25 14:05 Temperature 98.7 F Pulse Rate 57 L 55 L 55 L Respiratory Rate 14 14 Blood Pressure 125/76 125/76 Pulse Oximetry 92 92 Oxygen Delivery Oxygen Flow Rate 02/15/25 14:18 02/15/25 14:20 02/15/25 14:25 Temperature Pulse Rate 55 L 59 L 56 L Respiratory Rate 20 18 20 Blood Pressure 124/80 Pulse Oximetry 95 Oxygen Delivery Oxygen Flow Rate 02/15/25 14:50 02/15/25 15:11 02/15/25 15:20 Temperature Pulse Rate 56 L 57 L Respiratory Rate 14 13 Blood Pressure 139/70 124/86 Pulse Oximetry 94 89 L Oxygen Delivery Autopap Oxygen Flow Rate 02/15/25 16:00 02/15/25 16:00 02/15/25 16:20 Temperature 98.6 F Pulse Rate 63 62 Respiratory Rate 25 H 21 H Blood Pressure 132/77 135/81 Pulse Oximetry 91 91 92 Oxygen Delivery Nasal Cannula Oxygen Flow Rate 1 02/15/25 16:45 Temperature Pulse Rate 63 Respiratory Rate 22 H Blood Pressure 148/84 H Pulse Oximetry 91 Oxygen Delivery Oxygen Flow Rate Intake/Output Intake/Output: Intake & Output 02/12/25 02/13/25 02/14/25 02/15/25 23:59 23:59 23:59 23:59 Intake Total 1840 1020 Output Total 900 150 Balance 940 870 Meds/Results Medications: Active Medications Generic Name Dose Route Start Last Admin Trade Name Freq PRN Reason Stop Dose Admin Acetaminophen 650 mg 02/14/25 15:07 Acetaminophen 325 Mg Tablet PO Q4H PRN Mild Pain (1-3) or Fever Albuterol/Ipratropium 3 ml 02/15/25 14:00 02/15/25 14:23 Ipratropium 0.5 Mg/Albuterol Sulfate 2.5 Mg (Base) Ampul.Neb 3 Ml INHALATION 3 ml Q6HRT [facility] Administration Aspirin 81 mg 02/16/25 09:00 Aspirin 81 Mg Enteric Tablet PO QAM [facility] Atorvastatin Calcium 40 mg 02/16/25 09:00 Atorvastatin 40 Mg Tablet PO DAILY [facility] Clopidogrel Bisulfate 75 mg 02/15/25 13:40 02/15/25 14:57 Clopidogrel Bisulfate 75 Mg Tablet PO 75 mg QAM [facility] Administration Docusate Sodium 100 mg 02/14/25 15:07 Docusate Sodium 100 Mg Capsule PO BID PRN Constipation Empagliflozin 10 mg 02/16/25 09:00 Empagliflozin 10 Mg Tablet PO DAILY DEYA Enoxaparin Sodium 40 mg 02/15/25 09:00 02/15/25 08:06 Enoxaparin 40 Mg/0.4 Ml Syringe SUB-Q 40 mg DAILY DEYA Administration Furosemide 40 mg 02/15/25 09:00 02/15/25 08:06 Furosemide Inj 40 Mg/4 Ml Vial IV PUSH 40 mg DAILY DEYA Administration Sodium Chloride 300 mls @ 100 mls/hr 02/15/25 14:43 02/15/25 14:57 Normal Saline Iv IV CONT 02/15/25 17:42 100 mls/hr .Q3H ONE Administration Sacubitril/Valsartan 1 tab 02/15/25 21:00 Sacubitril/Valsartan 24-26 Mg Tablet PO Q12HR [facility] Spironolactone 25 mg 02/16/25 09:00 Spironolactone 25 Mg Tablet PO QAM [facility] Radiology Results: ITS Impressions Chest X-Ray 02/14/25 07:41 IMPRESSION: 1. Interstitial pulmonary edema and/or pneumonitis. 2. Mild cardiomegaly. Chest CTA 02/14/25 08:13 IMPRESSION: 1. No PE identified. 2. Interstitial pulmonary edema. 3. Moderate pleural effusions. 4. Cardiomegaly. Labs Labs: Laboratory Results - last 24 hr 02/14/25 02/15/25 02/15/25 20:26 04:03 09:32 WBC 13.8 H RBC 4.89 Hgb 14.5 Hct 44.1 MCV 90.2 MCH 29.7 MCHC 32.9 RDW 13.2 Plt Count 259 MPV 10.7 H Immature Gran % (Auto) 0.4 Neut % (Auto) 68.5 Lymph % (Auto) 17.7 L [place] % (Auto) 11.0 H Eos % (Auto) 1.7 Baso % (Auto) 0.7 Lymph # (Auto) 2.44 [place] # (Auto) 1.5 H Eos # (Auto) 0.2 Baso # (Auto) 0.1 Abs Immat Gran (auto) 0.05 H Absolute Neuts (auto) 9.4 H Absolute Nucleated RBC 0.000 Nucleated RBC % 0.0 Sodium 136 L Potassium 3.6 Chloride 100 Carbon Dioxide 31 H Anion Gap 5 BUN 16 Creatinine 0.90 Estim Creat Clear Calc 70 Estimated GFR > 60 Glucose 159 H Hemoglobin A1c Calcium 8.2 L Troponin I 3.110 H* TSH (Reflex) 4.720 H Free T4 0.87 Total T3 0.88 Urine Color Yellow Urine Appearance Clear Urine pH 6.0 Ur Specific [place] 1.035 Urine Protein Trace Urine Glucose (UA) 3+ H Urine Ketones Negative Ur Blood (Man) Negative Urine Nitrate Negative Urine Bilirubin Negative Urine Urobilinogen 1.0 Leukocyte Esterase Rfl Negative Urine RBC 0-2 Urine WBC 0-5 Ur Squamous Epith Cells None seen Urine Bacteria None seen Urine Casts 0-2 02/15/25 14:18 WBC RBC Hgb Hct MCV MCH MCHC RDW Plt Count MPV Immature Gran % (Auto) Neut % (Auto) Lymph % (Auto) [place] % (Auto) Eos % (Auto) Baso % (Auto) Lymph # (Auto) [place] # (Auto) Eos # (Auto) Baso # (Auto) Abs Immat Gran (auto) Absolute Neuts (auto) Absolute Nucleated RBC Nucleated RBC % Sodium Potassium Chloride Carbon Dioxide Anion Gap BUN Creatinine Estim Creat Clear Calc Estimated GFR Glucose Hemoglobin A1c 7.8 H Calcium Troponin I 3.130 H* TSH (Reflex) 3.670 Free T4 Total T3 Urine Color Urine Appearance Urine pH Ur Specific [place] Urine Protein Urine Glucose (UA) Urine Ketones Ur Blood (Man) Urine Nitrate Urine Bilirubin Urine Urobilinogen Leukocyte Esterase Rfl Urine RBC Urine WBC Ur Squamous Epith Cells Urine Bacteria Urine Casts Quality VTE Prophylaxis VTE prophylaxis: mechanical ordered and pharmacologic ordered
[2025-02-15] MEDS: SACUBITRIL/VALSARTAN 24-26 MG TABLET 1 TAB PO (20:59)
--- NOTE | 2025-02-15 21:47 | PC.NURSE ---
This patient, Moi Aguilar, was transferred to [facility] in [place] on 02/15/25 at 2147. Personal belongings sent with patient. Report given to Amber RIVERA. Appropriate documentation sent with patient.
[2025-02-16] VITALS (23 sets, daily range): BP systolic 114–144; BP diastolic 69–87; PULSE 59–83; RESP 14–20; TEMP 36.3–36.8; O2SAT 88–97
[2025-02-16] MEDS: IPRATROPIUM 0.5 MG/ALBUTEROL SULFATE 2.5 MG (BASE) AMPUL.NEB 3 ML INHALATION ×4 (02:49→20:38)
[2025-02-16 04:00] LABS: Hematocrit 46.1 % (42.0-52.0); Hemoglobin 15.2 g/dL (14.0-18.0); Immature Granulocyte Percent A 0.5 % (0-0.5); Lymphocytes Absolute Auto 2.10 K/mm3 (0.9-3.2); Mean Corpuscular HGB Conc 33.0 g/dl (32-36); Mean Corpuscular Hemoglobin 29.4 pg (26-34); Mean Corpuscular Volume 89.2 fl (80-100); Nucleated Red Blood Cells Absolute Auto 0.000 K/mm3 (0.0-0.012); Nucleated Red Blood Cells Perc 0.0 % (0.0-0.2); Platelet Count Result 280 k/mm3 (150-375); Red Blood Count 5.17 M/mm3 (4.6-6.20); White Blood Count 12.9 K/mm3 (4.5-10.0)
[2025-02-16 05:04] LABS: Troponin I 3.070 ng/mL (0.000-0.034)
[2025-02-16 05:08] LABS: Alanine Aminotransferase 28 U/L (6-50); Albumin Level 3.4 g/dL (3.5-5.1); Alkaline Phosphatase 83 U/L (38-126); Anion Gap 6 mmol/L (4-12); Aspartate Amino Transferase 31 U/L (17-59); Bilirubin,Total 0.9 mg/dL (0.2-1.3); Blood Urea Nitrogen 15 mg/dL (9-20); Calcium 8.3 mg/dL (8.4-10.2); Carbon Dioxide 26 mmol/L (22-30); Chloride 100 mmol/L (98-107); Estimated CRCL calculation 83 ml/min; Estimated Glomerular Filt Rate > 60; Glucose 136 mg/dL (65-110); Magnesium 2.2 mg/dL (1.6-2.3); Potassium 3.7 mmol/L (3.4-5.0); Sodium 132 mmol/L (137-145); Total Protein 6.8 g/dL (6.3-8.2)
[2025-02-16] MEDS: CLOPIDOGREL BISULFATE 75 MG TABLET PO (08:22)
[2025-02-16] MEDS: SPIRONOLACTONE 25 MG TABLET PO (08:22)
[2025-02-16] MEDS: ATORVASTATIN 40 MG TABLET PO (08:22)
[2025-02-16] MEDS: EMPAGLIFLOZIN 10 MG TABLET PO (08:22)
[2025-02-16] MEDS: SACUBITRIL/VALSARTAN 24-26 MG TABLET 1 TAB PO ×2 (08:22→20:27)
[2025-02-16] MEDS: FUROSEMIDE INJ 40 MG/4 ML VIAL IV PUSH (08:22)
[2025-02-16] MEDS: ASPIRIN 81 MG ENTERIC TABLET PO (08:22)
[2025-02-16] MEDS: ENOXAPARIN 40 MG/0.4 ML SYRINGE SUB-Q (08:22)
--- NOTE | 2025-02-16 08:26 | PC.NURSE ---
Discussed medications prescribed to patient with Dr. Dewey. Ok for all morning meds
--- NOTE | 2025-02-16 08:53 | PM.PNCARD ---
Progress Note: A&P Assessment and Plan (1) Congestive heart failure: Code(s): I50.9 - Heart failure, unspecified Status: Acute Assessment and Plan: 64-year-old male with no known prior cardiac history; heavy tobacco abuse presented with 2 day history of shortness of breath and cough with expectoration. Influenza A/B and COVID negative. CT negative for PE. NTproBNP elevated. EKG showed sinus rhythm, high-grade AV block with junctional escape rhythm. On telemetry, he has been in sinus rhythm with PVCs. Patient's troponins were elevated. 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 On echocardiogram, patient was found to have moderate LV systolic dysfunction with LVEF 35-40%. -dyspnea has improved. Change IV furosemide to p.o. furosemide. -GDMT for CHF with reduced ejection fraction. Holding off on beta-idalia for now due to presentation with bradyarrhythmia. If patient remains in sinus rhythm without any significant bradyarrhythmia, then may start low-dose carvedilol tomorrow. Continue sacubitril/valsartan, empagliflozin, spironolactone. -evaluation for underlying possible COPD/emphysema as per primary team. Bronchodilators as needed. 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 Moderate disease elsewhere. Dual antiplatelet treatment with aspirin clopidogrel due to presentation with non ST elevation AR (ticagrelor not chosen due to presentation with AV block); high-intensity statin. Continued surveillance for progression of CAD as an outpatient. Smoking cessation counseling was done. Time Spent With Patient Time with patient: Greater than 35 minutes Subjective Date/time seen: 02/16/25 08:53 Interval history: 02/16/2025-reports improvement in dyspnea. No chest pain. 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 EF 35-40% on echo. On telemetry, patient remained sinus rhythm with occasional PVCs. Exam Narrative: PHYSICAL EXAMINATION: GENERAL: Alert, oriented, no acute distress MENTAL STATUS: affect appropriate to mood EYES: Extraocular movements intact, no pallor EARS: External ears appear normal, hearing grossly normal NOSE: Normal and patent, no discharge MOUTH: Mucous membranes moist, tongue normal NECK: Supple, no JVD CHEST: Coarse breath sounds HEART: Normal rate, regular rhythm with ectopic beats ABDOMEN: Soft, nontender NEUROLOGICAL: Alert, oriented, normal speech, no gross motor deficits MUSCULOSKELETAL: No major deformity, no amputation EXTREMITIES: No pedal edema, no clubbing, no cyanosis SKIN: no rash on the exposed area, no cyanosis PSYCHIATRIC: Normal mood, appropriate affect Objective Data Vital Signs Vital Signs: Vital Signs - 24 hr 02/15/25 09:31 02/15/25 11:05 02/15/25 11:31 Temperature 36.9 C Pulse Rate 59 L 57 L Respiratory Rate 18 Blood Pressure 120/78 Pulse Oximetry 90 92 Oxygen Delivery Nasal Cannula Oxygen Flow Rate 3 02/15/25 12:00 02/15/25 13:58 02/15/25 14:00 Temperature 36.6 C Pulse Rate 58 L 53 L 57 L Respiratory Rate 20 Blood Pressure 125/76 Pulse Oximetry 92 Oxygen Delivery Oxygen Flow Rate 02/15/25 14:00 02/15/25 14:05 02/15/25 14:18 Temperature 37.1 C Pulse Rate 55 L 55 L 55 L Respiratory Rate 14 14 20 Blood Pressure 125/76 125/76 Pulse Oximetry 92 92 Oxygen Delivery Oxygen Flow Rate 02/15/25 14:20 02/15/25 14:25 02/15/25 14:50 Temperature Pulse Rate 59 L 56 L 56 L Respiratory Rate 18 20 14 Blood Pressure 124/80 139/70 Pulse Oximetry 95 94 Oxygen Delivery Oxygen Flow Rate 02/15/25 15:11 02/15/25 15:20 02/15/25 16:00 Temperature 37.0 C Pulse Rate 57 L 63 Respiratory Rate 13 25 H Blood Pressure 124/86 132/77 Pulse Oximetry 89 L 91 Oxygen Delivery Autopap Oxygen Flow Rate 02/15/25 16:00 02/15/25 16:00 02/15/25 16:20 Temperature Pulse Rate 55 L 62 Respiratory Rate 21 H Blood Pressure 135/81 Pulse Oximetry 91 92 Oxygen Delivery Nasal Cannula Oxygen Flow Rate 1 02/15/25 16:45 02/15/25 17:20 02/15/25 17:33 Temperature Pulse Rate 63 57 L Respiratory Rate 22 H 26 H Blood Pressure 148/84 H 120/82 Pulse Oximetry 91 88 L 88 L Oxygen Delivery Nasal Cannula Oxygen Flow Rate 2 02/15/25 18:00 02/15/25 18:20 02/15/25 19:20 Temperature Pulse Rate 57 L 61 69 Respiratory Rate 14 22 H 19 Blood Pressure 127/64 127/64 124/80 Pulse Oximetry 94 94 91 Oxygen Delivery Oxygen Flow Rate 02/15/25 20:00 02/15/25 20:00 02/15/25 20:00 Temperature 36.9 C Pulse Rate 66 63 Respiratory Rate 25 H Blood Pressure 136/88 Pulse Oximetry 90 91 Oxygen Delivery Nasal Cannula Oxygen Flow Rate 1.5 02/15/25 20:45 02/15/25 20:46 02/15/25 20:52 Temperature Pulse Rate 62 63 Respiratory Rate 22 H 20 Blood Pressure Pulse Oximetry 91 Oxygen Delivery Nasal Cannula Oxygen Flow Rate 2 02/15/25 22:00 02/15/25 22:00 02/15/25 23:50 Temperature 36.3 C L Pulse Rate 58 L 62 71 Respiratory Rate 24 H 15 Blood Pressure 125/86 Pulse Oximetry 94 92 Oxygen Delivery Autopap Oxygen Flow Rate 02/16/25 00:00 02/16/25 00:00 02/16/25 00:00 Temperature 36.5 C Pulse Rate 61 62 Respiratory Rate 20 Blood Pressure 126/76 Pulse Oximetry 95 95 Oxygen Delivery CPAP Oxygen Flow Rate 5 02/16/25 02:00 02/16/25 02:00 02/16/25 02:50 Temperature 36.8 C Pulse Rate 66 71 67 Respiratory Rate 20 20 Blood Pressure 128/83 Pulse Oximetry 91 Oxygen Delivery Oxygen Flow Rate 02/16/25 04:00 02/16/25 04:00 02/16/25 04:00 Temperature 36.7 C Pulse Rate 61 62 Respiratory Rate 17 Blood Pressure 114/73 Pulse Oximetry 91 91 Oxygen Delivery High Flow Nasal Cannula Oxygen Flow Rate 12 02/16/25 06:00 02/16/25 07:27 02/16/25 07:33 Temperature Pulse Rate 59 L 77 Respiratory Rate 20 Blood Pressure Pulse Oximetry 91 Oxygen Delivery High Flow Nasal Cannula Oxygen Flow Rate 12 02/16/25 07:36 02/16/25 08:01 Temperature 36.3 C L Pulse Rate 83 73 Respiratory Rate 20 Blood Pressure 122/78 Pulse Oximetry 93 Oxygen Delivery Oxygen Flow Rate Intake/Output Intake/Output: Intake & Output 02/13/25 02/14/25 02/15/25 02/16/25 23:59 23:59 23:59 23:59 Intake Total 1840 1560 590 Output Total 900 800 130 Balance 940 760 460 Meds/Results Medications: Active Medications Generic Name Dose Route Start Last Admin Trade Name Freq PRN Reason Stop Dose Admin Acetaminophen 650 mg 02/14/25 15:07 Acetaminophen 325 Mg Tablet PO Q4H PRN Mild Pain (1-3) or Fever Albuterol/Ipratropium 3 ml 02/15/25 14:00 02/16/25 07:27 Ipratropium 0.5 Mg/Albuterol Sulfate 2.5 Mg (Base) Ampul.Neb 3 Ml INHALATION 3 ml Q6HRT EDYA Administration Aspirin 81 mg 02/16/25 09:00 02/16/25 08:22 Aspirin 81 Mg Enteric Tablet PO 81 mg QAM DEYA Administration Atorvastatin Calcium 40 mg 02/16/25 09:00 02/16/25 08:22 Atorvastatin 40 Mg Tablet PO 40 mg DAILY DEYA Administration Clopidogrel Bisulfate 75 mg 02/15/25 13:40 02/16/25 08:22 Clopidogrel Bisulfate 75 Mg Tablet PO 75 mg QAM DEYA Administration Docusate Sodium 100 mg 02/14/25 15:07 Docusate Sodium 100 Mg Capsule PO BID PRN Constipation Empagliflozin 10 mg 02/16/25 09:00 02/16/25 08:22 Empagliflozin 10 Mg Tablet PO 10 mg DAILY DEYA Administration Enoxaparin Sodium 40 mg 02/15/25 09:00 02/16/25 08:22 Enoxaparin 40 Mg/0.4 Ml Syringe SUB-Q 40 mg DAILY DEYA Administration Furosemide 40 mg 02/15/25 09:00 02/16/25 08:22 Furosemide Inj 40 Mg/4 Ml Vial IV PUSH 40 mg DAILY DEYA Administration Sacubitril/Valsartan 1 tab 02/15/25 21:00 02/16/25 08:22 Sacubitril/Valsartan 24-26 Mg Tablet PO 1 tab Q12HR DEYA Administration Spironolactone 25 mg 02/16/25 09:00 02/16/25 08:22 Spironolactone 25 Mg Tablet PO 25 mg QAM DYEA Administration Radiology Results: ITS Impressions Chest X-Ray 02/14/25 07:41 IMPRESSION: 1. Interstitial pulmonary edema and/or pneumonitis. 2. Mild cardiomegaly. Chest CTA 02/14/25 08:13 IMPRESSION: 1. No PE identified. 2. Interstitial pulmonary edema. 3. Moderate pleural effusions. 4. Cardiomegaly. Labs Labs: Laboratory Results - last 24 hr 02/15/25 02/15/25 02/15/25 04:03 09:32 14:18 WBC RBC Hgb Hct MCV MCH MCHC RDW Plt Count MPV Immature Gran % (Auto) Neut % (Auto) Lymph % (Auto) [place] % (Auto) Eos % (Auto) Baso % (Auto) Lymph # (Auto) [place] # (Auto) Eos # (Auto) Baso # (Auto) Abs Immat Gran (auto) Absolute Neuts (auto) Absolute Nucleated RBC Nucleated RBC % Sodium Potassium Chloride Carbon Dioxide Anion Gap BUN Creatinine Estim Creat Clear Calc Estimated GFR Glucose Hemoglobin A1c 7.8 H Lactic Acid Calcium Magnesium Total Bilirubin AST ALT Alkaline Phosphatase Troponin I 3.110 H* 3.130 H* Total Protein Albumin TSH (Reflex) 4.720 H 3.670 Free T4 0.87 Total T3 0.88 02/16/25 03:31 WBC 12.9 H RBC 5.17 Hgb 15.2 Hct 46.1 MCV 89.2 MCH 29.4 MCHC 33.0 RDW 13.3 Plt Count 280 MPV 10.5 H Immature Gran % (Auto) 0.5 Neut % (Auto) 69.9 Lymph % (Auto) 16.3 L [place] % (Auto) 9.8 H Eos % (Auto) 2.7 Baso % (Auto) 0.8 Lymph # (Auto) 2.10 [place] # (Auto) 1.3 H Eos # (Auto) 0.4 H Baso # (Auto) 0.1 Abs Immat Gran (auto) 0.06 H Absolute Neuts (auto) 9.0 H Absolute Nucleated RBC 0.000 Nucleated RBC % 0.0 Sodium 132 L Potassium 3.7 Chloride 100 Carbon Dioxide 26 Anion Gap 6 BUN 15 Creatinine 0.86 Estim Creat Clear Calc 83 Estimated GFR > 60 Glucose 136 H Hemoglobin A1c Lactic Acid 1.2 Calcium 8.3 L Magnesium 2.2 Total Bilirubin 0.9 AST 31 ALT 28 Alkaline Phosphatase 83 Troponin I 3.070 H* Total Protein 6.8 Albumin 3.4 L TSH (Reflex) Free T4 Total T3
--- NOTE | 2025-02-16 12:44 | P.PNIM_ITS ---
Progress Note: A&P Assessment and Plan (1) Pleural effusion: Code(s): J90 - Pleural effusion, not elsewhere classified Status: Acute Assessment and Plan: Will treat with diuretics No need for thoracentesis at this time (2) Acute respiratory failure: Code(s): J96.00 - Acute respiratory failure, unspecified whether with hypoxia or hypercapnia Status: Acute Assessment and Plan: Secondary to above Currently on 4 L nasal cannula, tachypneic Wean oxygen as able (3) Leukocytosis: Code(s): D72.829 - Elevated white blood cell count, unspecified Status: Acute Assessment and Plan: No pneumonia seen on CT UA no signs of infection Denies fevers chills nausea vomiting (4) Hyponatremia: Code(s): E87.1 - Hypo-osmolality and hyponatremia Status: Acute Assessment and Plan: Will treat with diuretics (5) Hyperglycemia: Code(s): R73.9 - Hyperglycemia, unspecified Status: Acute Assessment and Plan: Accu-Irena a.cMaria Antonia HS SSI Plan NSTEMI with CAD Cardiac cath showed total occlusion of LCX Aspirin, Plavix, Lipitor cardiology following Ischemic cardiomyopathy ECHO showed EF 35-40% Cardiac cath showed totoal occlusion of LCX on medical treatment Continue Lasix Entresto, Spironolactone, Jardiance cardiology following Acute hypoxemic respiratory failure from CHF continue Diuretics and titrate oxygen with clinical course On 12 liters this morning Bradyarrhythmia EKG showed high grade AV block now in sinus rhythm no BB and monitor DVT prophylaxis on Sq Lovenox Subjective Date/time seen: 02/16/25 12:44 Interval history: COmfortable at bedside EF 35-40% and on GDMT per cardiology Review of Systems Review of Systems: 12 systems were reviewed and are negativ e except for as per HPI. Exam Narrative: General: well appearing, appears stated age. HEENT: normocephalic, atraumatic. Mucous membranes moist. EOMI, PERRLA, bilateral sclera anicteric, no conjunctival injection. Neck supple without JVD, lymphadenopathy, or bruit. Respiratory: clear to ascultation bilaterally. No rales/rhonic/wheezes. Cardiovascular: Regular rate and rhythm, normal S1-S2 upon ascultation. No murmurs, rubs, or clicks. PMI is nondisplaced, capillary refill less than 3 second. Abdomen: Soft, round, no pulsatile masses, nondistended and nontender. No rebound, no guarding. No CVA tenderness, no hepatosplenomegaly. Bowel sounds present to all four quadrants. No high pitch or tinkling sounds, resonant to percussion. Extremities: No cyanosis, clubbing, or edema present. Pulses are palpable 2/2. Active ROM to all four extremities. Neuro: Alert and orientated x 4. PERRLA. Cranial nerves 2-12 intact without foca l deficit. Skin: Warm, dry, and intact, without rash, erythema, or lesion. Psych: pleasant, cooperative, normal speech, normal affect, no hallucinations, no dysarthia 4 L nasal cannula Objective Data Vital Signs Vital Signs: Vital Signs - 24 hr 02/15/25 13:58 02/15/25 14:00 02/15/25 14:00 Temperature 97.8 F 98.7 F Pulse Rate 53 L 57 L 55 L Respiratory Rate 20 14 Blood Pressure 125/76 125/76 Pulse Oximetry 92 92 Oxygen Delivery Oxygen Flow Rate 02/15/25 14:05 02/15/25 14:18 02/15/25 14:20 Temperature Pulse Rate 55 L 55 L 59 L Respiratory Rate 14 20 18 Blood Pressure 125/76 124/80 Pulse Oximetry 92 95 Oxygen Delivery Oxygen Flow Rate 02/15/25 14:25 02/15/25 14:50 02/15/25 15:11 Temperature Pulse Rate 56 L 56 L Respiratory Rate 20 14 Blood Pressure 139/70 Pulse Oximetry 94 Oxygen Delivery Autopap Oxygen Flow Rate 02/15/25 15:20 02/15/25 16:00 02/15/25 16:00 Temperature 98.6 F Pulse Rate 57 L 63 Respiratory Rate 13 25 H Blood Pressure 124/86 132/77 Pulse Oximetry 89 L 91 91 Oxygen Delivery Nasal Cannula Oxygen Flow Rate 1 02/15/25 16:00 02/15/25 16:20 02/15/25 16:45 Temperature Pulse Rate 55 L 62 63 Respiratory Rate 21 H 22 H Blood Pressure 135/81 148/84 H Pulse Oximetry 92 91 Oxygen Delivery Oxygen Flow Rate 02/15/25 17:20 02/15/25 17:33 02/15/25 18:00 Temperature Pulse Rate 57 L 57 L Respiratory Rate 26 H 14 Blood Pressure 120/82 127/64 Pulse Oximetry 88 L 88 L 94 Oxygen Delivery Nasal Cannula Oxygen Flow Rate 2 02/15/25 18:20 02/15/25 19:20 02/15/25 20:00 Temperature 98.5 F Pulse Rate 61 69 66 Respiratory Rate 22 H 19 25 H Blood Pressure 127/64 124/80 136/88 Pulse Oximetry 94 91 90 Oxygen Delivery Oxygen Flow Rate 02/15/25 20:00 02/15/25 20:00 02/15/25 20:45 Temperature Pulse Rate 63 Respiratory Rate Blood Pressure Pulse Oximetry 91 91 Oxygen Delivery Nasal Cannula Nasal Cannula Oxygen Flow Rate 1.5 2 02/15/25 20:46 02/15/25 20:52 02/15/25 22:00 Temperature 97.4 F L Pulse Rate 62 63 58 L Respiratory Rate 22 H 20 24 H Blood Pressure 125/86 Pulse Oximetry 94 Oxygen Delivery Oxygen Flow Rate 02/15/25 22:00 02/15/25 23:50 02/16/25 00:00 Temperature 97.7 F Pulse Rate 62 71 61 Respiratory Rate 15 20 Blood Pressure 126/76 Pulse Oximetry 92 95 Oxygen Delivery Autopap Oxygen Flow Rate 02/16/25 00:00 02/16/25 00:00 02/16/25 02:00 Temperature 98.3 F Pulse Rate 62 66 Respiratory Rate 20 Blood Pressure 128/83 Pulse Oximetry 95 91 Oxygen Delivery CPAP Oxygen Flow Rate 5 02/16/25 02:00 02/16/25 02:50 02/16/25 04:00 Temperature 98.1 F Pulse Rate 71 67 61 Respiratory Rate 20 17 Blood Pressure 114/73 Pulse Oximetry 91 Oxygen Delivery Oxygen Flow Rate 02/16/25 04:00 02/16/25 04:00 02/16/25 06:00 Temperature Pulse Rate 62 59 L Respiratory Rate Blood Pressure Pulse Oximetry 91 Oxygen Delivery High Flow Nasal Cannula Oxygen Flow Rate 12 02/16/25 07:27 02/16/25 07:33 02/16/25 07:36 Temperature Pulse Rate 77 83 Respiratory Rate 20 20 Blood Pressure Pulse Oximetry 91 Oxygen Delivery High Flow Nasal Cannula Oxygen Flow Rate 12 02/16/25 08:00 02/16/25 08:00 02/16/25 08:01 Temperature 97.4 F L Pulse Rate 60 73 Respiratory Rate Blood Pressure 122/78 Pulse Oximetry 94 93 Oxygen Delivery High Flow Nasal Cannula Oxygen Flow Rate 10 02/16/25 10:00 02/16/25 11:09 02/16/25 12:00 Temperature 98.0 F Pulse Rate 69 70 Respiratory Rate Blood Pressure 144/87 H Pulse Oximetry 96 Oxygen Delivery Nasal Cannula Oxygen Flow Rate 3 02/16/25 12:00 02/16/25 12:00 Temperature Pulse Rate 66 Respiratory Rate Blood Pressure Pulse Oximetry 93 Oxygen Delivery High Flow Nasal Cannula Oxygen Flow Rate 6 Intake/Output Intake/Output: Intake & Output 02/13/25 02/14/25 02/15/25 02/16/25 23:59 23:59 23:59 23:59 Intake Total 1840 1560 590 Output Total 497 039 5965 Balance 940 760 -1490 Meds/Results Medications: Active Medications Generic Name Dose Route Start Last Admin Trade Name Freq PRN Reason Stop Dose Admin Acetaminophen 650 mg 02/14/25 15:07 Acetaminophen 325 Mg Tablet PO Q4H PRN Mild Pain (1-3) or Fever Albuterol/Ipratropium 3 ml 02/15/25 14:00 02/16/25 07:27 Ipratropium 0.5 Mg/Albuterol Sulfate 2.5 Mg (Base) Ampul.Neb 3 Ml INHALATION 3 ml Q6HRT DEYA Administration Aspirin 81 mg 02/16/25 09:00 02/16/25 08:22 Aspirin 81 Mg Enteric Tablet PO 81 mg QAM DEYA Administration Atorvastatin Calcium 40 mg 02/16/25 09:00 02/16/25 08:22 Atorvastatin 40 Mg Tablet PO 40 mg DAILY DEYA Administration Clopidogrel Bisulfate 75 mg 02/15/25 13:40 02/16/25 08:22 Clopidogrel Bisulfate 75 Mg Tablet PO 75 mg QAM DEYA Administration Docusate Sodium 100 mg 02/14/25 15:07 Docusate Sodium 100 Mg Capsule PO BID PRN Constipation Empagliflozin 10 mg 02/16/25 09:00 02/16/25 08:22 Empagliflozin 10 Mg Tablet PO 10 mg DAILY DEYA Administration Enoxaparin Sodium 40 mg 02/15/25 09:00 02/16/25 08:22 Enoxaparin 40 Mg/0.4 Ml Syringe SUB-Q 40 mg DAILY DEYA Administration Furosemide 40 mg 02/16/25 17:00 Furosemide 40 Mg Tablet PO BID DEYA Sacubitril/Valsartan 1 tab 02/15/25 21:00 02/16/25 08:22 Sacubitril/Valsartan 24-26 Mg Tablet PO 1 tab Q12HR DEYA Administration Spironolactone 25 mg 02/16/25 09:00 02/16/25 08:22 Spironolactone 25 Mg Tablet PO 25 mg QAM DEYA Administration Radiology Results: ITS Impressions Chest X-Ray 02/14/25 07:41 IMPRESSION: 1. Interstitial pulmonary edema and/or pneumonitis. 2. Mild cardiomegaly. Chest CTA 02/14/25 08:13 IMPRESSION: 1. No PE identified. 2. Interstitial pulmonary edema. 3. Moderate pleural effusions. 4. Cardiomegaly. Labs Labs: Laboratory Results - last 24 hr 02/15/25 02/16/25 14:18 03:31 WBC 12.9 H RBC 5.17 Hgb 15.2 Hct 46.1 MCV 89.2 MCH 29.4 MCHC 33.0 RDW 13.3 Plt Count 280 MPV 10.5 H Immature Gran % (Auto) 0.5 Neut % (Auto) 69.9 Lymph % (Auto) 16.3 L [place] % (Auto) 9.8 H Eos % (Auto) 2.7 Baso % (Auto) 0.8 Lymph # (Auto) 2.10 [place] # (Auto) 1.3 H Eos # (Auto) 0.4 H Baso # (Auto) 0.1 Abs Immat Gran (auto) 0.06 H Absolute Neuts (auto) 9.0 H Absolute Nucleated RBC 0.000 Nucleated RBC % 0.0 Sodium 132 L Potassium 3.7 Chloride 100 Carbon Dioxide 26 Anion Gap 6 BUN 15 Creatinine 0.86 Estim Creat Clear Calc 83 Estimated GFR > 60 Glucose 136 H Hemoglobin A1c 7.8 H Lactic Acid 1.2 Calcium 8.3 L Magnesium 2.2 Total Bilirubin 0.9 AST 31 ALT 28 Alkaline Phosphatase 83 Troponin I 3.130 H* 3.070 H* Total Protein 6.8 Albumin 3.4 L TSH (Reflex) 3.670 Quality VTE Prophylaxis VTE prophylaxis: mechanical ordered and pharmacologic ordered
[2025-02-16] MEDS: FUROSEMIDE 40 MG TABLET PO (16:41)
[2025-02-16] MEDS: INSULIN ASPART (*BKC) 100 UNITS/ML SUB-Q (20:33)
[2025-02-17] VITALS (29 sets, daily range): BP systolic 113–147; BP diastolic 69–89; PULSE 67–128; RESP 14–20; TEMP 36.5–36.8; O2SAT 82–98
[2025-02-17 04:35] LABS: Hematocrit 50.6 % (42.0-52.0); Hemoglobin 16.7 g/dL (14.0-18.0); Immature Granulocyte Percent A 0.5 % (0-0.5); Lymphocytes Absolute Auto 2.03 K/mm3 (0.9-3.2); Mean Corpuscular HGB Conc 33.0 g/dl (32-36); Mean Corpuscular Hemoglobin 29.4 pg (26-34); Mean Corpuscular Volume 89.1 fl (80-100); Nucleated Red Blood Cells Absolute Auto 0.000 K/mm3 (0.0-0.012); Nucleated Red Blood Cells Perc 0.0 % (0.0-0.2); Platelet Count Result 330 k/mm3 (150-375); Red Blood Count 5.68 M/mm3 (4.6-6.20); White Blood Count 13.1 K/mm3 (4.5-10.0)
[2025-02-17 04:44] LABS: Alanine Aminotransferase 28 U/L (6-50); Albumin Level 3.7 g/dL (3.5-5.1); Alkaline Phosphatase 95 U/L (38-126); Anion Gap 7 mmol/L (4-12); Aspartate Amino Transferase 31 U/L (17-59); Bilirubin,Total 0.8 mg/dL (0.2-1.3); Blood Urea Nitrogen 15 mg/dL (9-20); Calcium 8.3 mg/dL (8.4-10.2); Carbon Dioxide 31 mmol/L (22-30); Chloride 97 mmol/L (98-107); Estimated CRCL calculation 68 ml/min; Estimated Glomerular Filt Rate > 60; Glucose 117 mg/dL (65-110); Magnesium 2.3 mg/dL (1.6-2.3); Potassium 3.5 mmol/L (3.4-5.0); Sodium 135 mmol/L (137-145); Total Protein 7.3 g/dL (6.3-8.2)
[2025-02-17] MEDS: IPRATROPIUM 0.5 MG/ALBUTEROL SULFATE 2.5 MG (BASE) AMPUL.NEB 3 ML INHALATION ×3 (08:02→20:26)
[2025-02-17] MEDS: EMPAGLIFLOZIN 10 MG TABLET PO (08:57)
[2025-02-17] MEDS: FUROSEMIDE 40 MG TABLET PO ×2 (08:57→17:09)
[2025-02-17] MEDS: CLOPIDOGREL BISULFATE 75 MG TABLET PO (08:57)
[2025-02-17] MEDS: ENOXAPARIN 40 MG/0.4 ML SYRINGE SUB-Q (08:57)
[2025-02-17] MEDS: SPIRONOLACTONE 25 MG TABLET PO (08:57)
[2025-02-17] MEDS: SACUBITRIL/VALSARTAN 24-26 MG TABLET 1 TAB PO ×2 (08:57→21:10)
[2025-02-17] MEDS: ATORVASTATIN 40 MG TABLET PO (08:58)
[2025-02-17] MEDS: ASPIRIN 81 MG ENTERIC TABLET PO (08:58)
--- NOTE | 2025-02-17 11:54 | PC.NURSE ---
pt found with o2 off, encouraged to keep on as his 02 dropped to 81 without it, fresh sensor applied to left hand
--- NOTE | 2025-02-17 16:12 | HOMEO2EVAL ---
Evaluation was performed at [facility] Home Oxygen Evaluation RC: Home Oxygen (O2) Evaluation Start: 02/17/25 11:22 Freq: ONCE Status: Active Protocol: RPE Activity Type Activity Date Activity User E-sign Co-sign Detail Recorded Client Recorded Date Recorded By Document 02/17/25 15:00 [email or web address] [email or web address] 02/17/25 16:11 SANDRINE Document 02/17/25 15:02 SANDRINE [email or web address] 02/17/25 16:11 SANDRINE Document 02/17/25 15:03 SANDRINE [email or web address] 02/17/25 16:11 SANDRINE Document 02/17/25 15:04 SANDRINE [email or web address] 02/17/25 16:11 SANDRINE Document 02/17/25 15:05 SANDRINE [email or web address] 02/17/25 16:11 SANDRINE Document 02/17/25 15:06 SANDRINE [email or web address] 02/17/25 16:11 SADNRINE Document 02/17/25 15:07 SANDRINE [email or web address] 02/17/25 16:11 SANDRINE Document 02/17/25 15:15 SANDRINE [email or web address] 02/17/25 16:11 SANDRINE 02/17/25 02/17/25 02/17/25 15:00 15:02 15:03 Home O2 Evaluation [Oxygen] -Test Phase Resting Resting Resting -Oxygen Delivery Room Air High Flow Nasal High Flow Nasal Cannula Cannula -Oxygen Flow Rate (L/min) 3 5 [Pulse Oximetry] -Pulse Oximetry (90-100 %) 82 L 86 L 88 L [Pulse Rate] -Pulse Rate (60-100 beats/min) [Exercise] -Ambulation Distance (feet) -Ambulation Distance (meters) [Comments] -Home Oxygen Evaluation Comments [Charges] -Evaluation Charges O2 Evaluation by Pulmonary 02/17/25 02/17/25 02/17/25 15:04 15:05 15:06 Home O2 Evaluation [Oxygen] -Test Phase Resting Exercise Exercise -Oxygen Delivery High Flow Nasal High Flow Nasal High Flow Nasal Cannula Cannula Cannula -Oxygen Flow Rate (L/min) 6 6 7 [Pulse Oximetry] -Pulse Oximetry (90-100 %) 92 86 L 87 L [Pulse Rate] -Pulse Rate (60-100 beats/min) 92 122 H [Exercise] -Ambulation Distance (feet) -Ambulation Distance (meters) [Comments] -Home Oxygen Evaluation Comments [Charges] -Evaluation Charges 02/17/25 02/17/25 15:07 15:15 Home O2 Evaluation [Oxygen] -Test Phase Exercise Resting -Oxygen Delivery High Flow Nasal High Flow Nasal Cannula Cannula -Oxygen Flow Rate (L/min) 8 6 [Pulse Oximetry] -Pulse Oximetry (90-100 %) 89 L 92 [Pulse Rate] -Pulse Rate (60-100 beats/min) 128 H 88 [Exercise] -Ambulation Distance (feet) 100 -Ambulation Distance (meters) 30.47 [Comments] -Home Oxygen Evaluation Comments Pt requires 6 l hfnc at rest and 8 l hfnc with exertion. [Charges] -Evaluation Charges
--- NOTE | 2025-02-17 16:12 | PCRCNOTE ---
Home O2 eval done, patient requires high flow cannula at 6 liters resting, 8 liters with exertion. Pt walked with walker out in [place] and back to room x3. RN notified, higher o2 needs >6L make it too difficult to oxygenate in home setting and outside of home.
--- NOTE | 2025-02-17 16:44 | P.PNIM_ITS ---
Progress Note: A&P Assessment and Plan (1) Acute respiratory failure: Code(s): J96.00 - Acute respiratory failure, unspecified whether with hypoxia or hypercapnia Status: Acute Assessment and Plan: Secondary to CHF exacerbation Currently on 6 liters oxygen and requiring higher for ambulation Wean oxygen as able (2) Leukocytosis: Code(s): D72.829 - Elevated white blood cell count, unspecified Status: Acute Assessment and Plan: No pneumonia seen on CT UA no signs of infection Denies fevers chills nausea vomiting (3) Hyponatremia: Code(s): E87.1 - Hypo-osmolality and hyponatremia Status: Acute Assessment and Plan: Will treat with diuretics (4) Hyperglycemia: Code(s): R73.9 - Hyperglycemia, unspecified Status: Acute Assessment and Plan: Edson PATEL SSI Plan NSTEMI with CAD Cardiac cath showed total occlusion of LCX Aspirin, Plavix, Lipitor cardiology following Ischemic cardiomyopathy with exacerbation ECHO showed EF 35-40% Cardiac cath showed totoal occlusion of LCX on medical treatment Continue Lasix Entresto, Spironolactone, Jardiance cardiology following Acute hypoxemic respiratory failure from CHF continue Diuretics and titrate oxygen with clinical course On 6 liters this morning Bradyarrhythmia EKG showed high grade AV block now in sinus rhythm no BB and monitor DVT prophylaxis on Sq Lovenox awaiting improvement of oxygen requirement for discharge Subjective Date/time seen: 02/17/25 16:44 Interval history: COmfortable at bedside EF 35-40% and on GDMT per cardiology Review of Systems Review of Systems: 12 systems were reviewed and are negativ e except for as per HPI. Exam Narrative: General: well appearing, appears stated age. HEENT: normocephalic, atraumatic. Mucous membranes moist. EOMI, PERRLA, bilate ral sclera anicteric, no conjunctival injection. Neck supple without JVD, lymphadenopathy, or bruit. Respiratory: clear to ascultation bilaterally. No rales/rhonic/wheezes. Cardiovascular: Regular rate and rhythm, normal S1-S2 upon ascultation. No murmurs, rubs, or clicks. PMI is nondisplaced, capillary refill less than 3 second. Abdomen: Soft, round, no pulsatile masses, nondistended and nontender. No rebound, no guarding. No CVA tenderness, no hepatosplenomegaly. Bowel sounds present to all four quadrants. No high pitch or tinkling sounds, resonant to percussion. Extremities: No cyanosis, clubbing, or edema present. Pulses are palpable 2/2. Active ROM to all four extremities. Neuro: Alert and orientated x 4. PERRLA. Cranial nerves 2-12 intact without focal deficit. Skin: Warm, dry, and intact, without rash, erythema, or lesion. Psych: pleasant, cooperative, normal speech, normal affect, no hallucinations, no dysarthia 4 L nasal cannula Objective Data Vital Signs Vital Signs: Vital Signs - 24 hr 02/16/25 18:00 02/16/25 20:00 02/16/25 20:00 Temperature 97.8 F Pulse Rate 80 80 Respiratory Rate 14 20 Blood Pressure 130/77 Pulse Oximetry 90 90 Oxygen Delivery High Flow Therapy with Na Oxygen Flow Rate 6 Fraction of Inspired Oxygen 02/16/25 20:00 02/16/25 20:38 02/16/25 20:43 Temperature Pulse Rate 77 78 Respiratory Rate 20 Blood Pressure Pulse Oximetry 90 Oxygen Delivery High Flow Nasal Cannula Oxygen Flow Rate 7 Fraction of Inspired Oxygen 02/16/25 20:45 02/16/25 22:00 02/16/25 23:10 Temperature Pulse Rate 79 82 Respiratory Rate 20 Blood Pressure Pulse Oximetry 88 L Oxygen Delivery High Flow Nasal Cannula Oxygen Flow Rate 7 Fraction of Inspired Oxygen 02/17/25 00:00 02/17/25 00:00 02/17/25 02:00 Temperature 97.7 F Pulse Rate 69 69 67 Respiratory Rate 18 Blood Pressure 125/77 Pulse Oximetry 90 Oxygen Delivery Oxygen Flow Rate Fraction of Inspired Oxygen 02/17/25 04:00 02/17/25 04:00 02/17/25 04:00 Temperature 97.9 F Pulse Rate 79 74 Respiratory Rate 14 Blood Pressure 121/78 Pulse Oximetry 94 92 Oxygen Delivery High Flow Nasal Cannula Oxygen Flow Rate 5 Fraction of Inspired Oxygen 02/17/25 06:00 02/17/25 08:00 02/17/25 08:00 Temperature 97.7 F Pulse Rate 73 90 81 Respiratory Rate 20 Blood Pressure 117/75 Pulse Oximetry 97 Oxygen Delivery Oxygen Flow Rate Fraction of Inspired Oxygen 02/17/25 08:02 02/17/25 08:02 02/17/25 08:10 Temperature Pulse Rate 78 82 Respiratory Rate 20 20 Blood Pressure Pulse Oximetry 91 Oxygen Delivery High Flow Nasal Cannula Oxygen Flow Rate 7 Fraction of Inspired Oxygen 52 02/17/25 10:00 02/17/25 12:00 02/17/25 12:00 Temperature 98.3 F Pulse Rate 79 123 H 89 Respiratory Rate 20 Blood Pressure 147/89 H Pulse Oximetry 98 Oxygen Delivery Oxygen Flow Rate Fraction of Inspired Oxygen 02/17/25 13:15 02/17/25 13:25 02/17/25 13:35 Temperature Pulse Rate 77 80 Respiratory Rate 20 20 Blood Pressure Pulse Oximetry 94 Oxygen Delivery High Flow Nasal Cannula Oxygen Flow Rate 5 Fraction of Inspired Oxygen 40 02/17/25 13:43 02/17/25 13:44 02/17/25 14:00 Temperature Pulse Rate 85 Respiratory Rate Blood Pressure Pulse Oximetry 88 L 90 Oxygen Delivery High Flow Nasal Cannula High Flow Nasal Cannula Oxygen Flow Rate 4 5 Fraction of Inspired Oxygen 36 40 02/17/25 15:00 02/17/25 15:02 02/17/25 15:03 Temperature Pulse Rate Respiratory Rate Blood Pressure Pulse Oximetry 82 L 86 L 88 L Oxygen Delivery Room Air High Flow Nasal Cannula High Flow Nasal Cannula Oxygen Flow Rate 3 5 Fraction of Inspired Oxygen 02/17/25 15:04 02/17/25 15:05 02/17/25 15:06 Temperature Pulse Rate 92 122 H Respiratory Rate Blood Pressure Pulse Oximetry 92 86 L 87 L Oxygen Delivery High Flow Nasal Cannula High Flow Nasal Cannula High Flow Nasal Cannula Oxygen Flow Rate 6 6 7 Fraction of Inspired Oxygen 02/17/25 15:07 02/17/25 15:15 02/17/25 15:36 Temperature 98.1 F Pulse Rate 128 H 88 84 Respiratory Rate 20 Blood Pressure 113/69 Pulse Oximetry 89 L 92 92 Oxygen Delivery High Flow Nasal Cannula High Flow Nasal Cannula Oxygen Flow Rate 8 6 Fraction of Inspired Oxygen 02/17/25 15:56 Temperature Pulse Rate 79 Respiratory Rate Blood Pressure Pulse Oximetry Oxygen Delivery Oxygen Flow Rate Fraction of Inspired Oxygen Intake/Output Intake/Output: Intake & Output 02/14/25 02/15/25 02/16/25 02/17/25 23:59 23:59 23:59 23:59 Intake Total 1840 1560 1520 880 Output Total 972 200 6508 2350 Balance 940 025 -1010 1470 Meds/Results Medications: Active Medications Generic Name Dose Route Start Last Admin Trade Name Freq PRN Reason Stop Dose Admin Acetaminophen 650 mg 02/14/25 15:07 Acetaminophen 325 Mg Tablet PO Q4H PRN Mild Pain (1-3) or Fever Albuterol/Ipratropium 3 ml 02/15/25 14:00 02/17/25 13:25 Ipratropium 0.5 Mg/Albuterol Sulfate 2.5 Mg (Base) Ampul.Neb 3 Ml INHALATION 3 ml Q6HRT DEYA Administration Aspirin 81 mg 02/16/25 09:00 02/17/25 08:58 Aspirin 81 Mg Enteric Tablet PO 81 mg QAM DEYA Administration Atorvastatin Calcium 40 mg 02/16/25 09:00 02/17/25 08:58 Atorvastatin 40 Mg Tablet PO 40 mg DAILY DEYA Administration Clopidogrel Bisulfate 75 mg 02/15/25 13:40 02/17/25 08:57 Clopidogrel Bisulfate 75 Mg Tablet PO 75 mg QAM DEYA Administration Dextrose 12.5 gm 02/16/25 12:49 Dextrose 50% 25 Gm/50 Ml Syringe IV PUSH PRN PRN Hypoglycemia Protocol Docusate Sodium 100 mg 02/14/25 15:07 Docusate Sodium 100 Mg Capsule PO BID PRN Constipation Empagliflozin 10 mg 02/16/25 09:00 02/17/25 08:57 Empagliflozin 10 Mg Tablet PO 10 mg DAILY DEYA Administration Enoxaparin Sodium 40 mg 02/15/25 09:00 02/17/25 08:57 Enoxaparin 40 Mg/0.4 Ml Syringe SUB-Q 40 mg DAILY DEYA Administration Furosemide 40 mg 02/16/25 17:00 02/17/25 08:57 Furosemide 40 Mg Tablet PO 40 mg BID DEYA Administration Glucagon 1 mg 02/16/25 12:49 Glucagon For Inj 1 Mg Vial IM PRN PRN Hypoglycemia Protocol Glucose 15 gm 02/16/25 12:49 Glucose Oral Gel 15 Gm Of Glucse In 37.5 Gm Tube PO PRN PRN Hypoglycemia Protocol Dextrose 1,000 mls @ 100 mls/hr 02/16/25 12:49 Dextrose 5% 1,000 Ml IVPB PRN PRN Hypoglycemia Protocol Insulin Aspart 2 - 5 units 02/16/25 17:00 02/17/25 12:12 Insulin Aspart (*Bkc) 100 Units/Ml SUB-Q Not Given TIDWM DEYA Protocol Insulin Aspart 1 - 2 units 02/16/25 21:00 02/16/25 20:33 Insulin Aspart (*Bkc) 100 Units/Ml SUB-Q 1 units HS DEYA Administration Protocol Sacubitril/Valsartan 1 tab 02/15/25 21:00 02/17/25 08:57 Sacubitril/Valsartan 24-26 Mg Tablet PO 1 tab Q12HR DEYA Administration Spironolactone 25 mg 02/16/25 09:00 02/17/25 08:57 Spironolactone 25 Mg Tablet PO 25 mg QAM DEYA Administration Radiology Results: ITS Impressions Chest X-Ray 02/14/25 07:41 IMPRESSION: 1. Interstitial pulmonary edema and/or pneumonitis. 2. Mild cardiomegaly. Chest CTA 02/14/25 08:13 IMPRESSION: 1. No PE identified. 2. Interstitial pulmonary edema. 3. Moderate pleural effusions. 4. Cardiomegaly. Labs Labs: Laboratory Results - last 24 hr 02/16/25 02/17/25 02/17/25 20:12 03:56 07:22 WBC 13.1 H RBC 5.68 Hgb 16.7 Hct 50.6 MCV 89.1 MCH 29.4 MCHC 33.0 RDW 13.2 Plt Count 330 MPV 10.2 Immature Gran % (Auto) 0.5 Neut % (Auto) 69.1 Lymph % (Auto) 15.5 L [place] % (Auto) 10.5 H Eos % (Auto) 3.6 Baso % (Auto) 0.8 Lymph # (Auto) 2.03 [place] # (Auto) 1.4 H Eos # (Auto) 0.5 H Baso # (Auto) 0.1 Abs Immat Gran (auto) 0.06 H Absolute Neuts (auto) 9.1 H Absolute Nucleated RBC 0.000 Nucleated RBC % 0.0 Sodium 135 L Potassium 3.5 Chloride 97 L Carbon Dioxide 31 H Anion Gap 7 BUN 15 Creatinine 1.05 Estim Creat Clear Calc 68 Estimated GFR > 60 Glucose 117 H POC Capillary Glucose 211 H 135 H Calcium 8.3 L Magnesium 2.3 Total Bilirubin 0.8 AST 31 ALT 28 Alkaline Phosphatase 95 Total Protein 7.3 Albumin 3.7 02/17/25 02/17/25 10:53 15:10 WBC RBC Hgb Hct MCV MCH MCHC RDW Plt Count MPV Immature Gran % (Auto) Neut % (Auto) Lymph % (Auto) [place] % (Auto) Eos % (Auto) Baso % (Auto) Lymph # (Auto) [place] # (Auto) Eos # (Auto) Baso # (Auto) Abs Immat Gran (auto) Absolute Neuts (auto) Absolute Nucleated RBC Nucleated RBC % Sodium Potassium Chloride Carbon Dioxide Anion Gap BUN Creatinine Estim Creat Clear Calc Estimated GFR Glucose POC Capillary Glucose 130 H 219 H Calcium Magnesium Total Bilirubin AST ALT Alkaline Phosphatase Total Protein Albumin Quality VTE Prophylaxis VTE prophylaxis: mechanical ordered and pharmacologic ordered
[2025-02-17] MEDS: INSULIN ASPART (*BKC) 100 UNITS/ML SUB-Q (17:10)
[2025-02-18] VITALS (13 sets, daily range): BP systolic 105–123; BP diastolic 64–75; PULSE 74–91; RESP 16–20; TEMP 36.3–37.2; O2SAT 90–94
[2025-02-18 04:41] LABS: Hematocrit 51.4 % (42.0-52.0); Hemoglobin 16.8 g/dL (14.0-18.0); Immature Granulocyte Percent A 0.5 % (0-0.5); Lymphocytes Absolute Auto 1.93 K/mm3 (0.9-3.2); Mean Corpuscular HGB Conc 32.7 g/dl (32-36); Mean Corpuscular Hemoglobin 29.1 pg (26-34); Mean Corpuscular Volume 89.1 fl (80-100); Nucleated Red Blood Cells Absolute Auto 0.000 K/mm3 (0.0-0.012); Nucleated Red Blood Cells Perc 0.0 % (0.0-0.2); Platelet Count Result 364 k/mm3 (150-375); Red Blood Count 5.77 M/mm3 (4.6-6.20); White Blood Count 14.3 K/mm3 (4.5-10.0)
[2025-02-18 05:06] LABS: Alanine Aminotransferase 23 U/L (6-50); Albumin Level 3.6 g/dL (3.5-5.1); Alkaline Phosphatase 100 U/L (38-126); Anion Gap 8 mmol/L (4-12); Aspartate Amino Transferase 25 U/L (17-59); Bilirubin,Total 0.8 mg/dL (0.2-1.3); Blood Urea Nitrogen 19 mg/dL (9-20); Calcium 8.6 mg/dL (8.4-10.2); Carbon Dioxide 28 mmol/L (22-30); Chloride 99 mmol/L (98-107); Estimated CRCL calculation 64 ml/min; Estimated Glomerular Filt Rate > 60; Glucose 129 mg/dL (65-110); Magnesium 2.5 mg/dL (1.6-2.3); Potassium 3.6 mmol/L (3.4-5.0); Sodium 135 mmol/L (137-145); Total Protein 7.3 g/dL (6.3-8.2)
--- NOTE | 2025-02-18 07:17 | P.PNIM_ITS ---
Progress Note: A&P Assessment and Plan (1) Acute respiratory failure: Code(s): J96.00 - Acute respiratory failure, unspecified whether with hypoxia or hypercapnia Status: Acute Assessment and Plan: Secondary to CHF exacerbation Currently on 6 liters oxygen and requiring higher for ambulation Wean oxygen as able (2) Leukocytosis: Code(s): D72.829 - Elevated white blood cell count, unspecified Status: Acute Assessment and Plan: No pneumonia seen on CT UA no signs of infection Denies fevers chills nausea vomiting (3) Hyponatremia: Code(s): E87.1 - Hypo-osmolality and hyponatremia Status: Acute Assessment and Plan: Will treat with diuretics (4) Hyperglycemia: Code(s): R73.9 - Hyperglycemia, unspecified Status: Acute Assessment and Plan: Edson PATEL SSI Plan NSTEMI with CAD Cardiac cath showed total occlusion of LCX Aspirin, Plavix, Lipitor cardiology following Ischemic cardiomyopathy with exacerbation ECHO showed EF 35-40% Cardiac cath showed totoal occlusion of LCX on medical treatment Continue Lasix Entresto, Spironolactone, Jardiance cardiology following Acute hypoxemic respiratory failure from CHF continue Diuretics and titrate oxygen with clinical course On 6 liters this morning Bradyarrhythmia EKG showed high grade AV block now in sinus rhythm no BB and monitor DVT prophylaxis on Sq Lovenox awaiting improvement of oxygen requirement for discharge Subjective Date/time seen: 02/18/25 07:17 Interval history: Patient underwent CT scan which shows mild and atelectasis and mild pulmonary edema along with tiny bilateral pleural effusion. Mild emphysema, small pericardial effusion. Patient has a long history of smoking but med never diagnosed officially COPD. Patient was given Lasix 40 mg IV once today. BNP ordered tomorrow. Will consider Lasix according Review of Systems Review of Systems: 12 systems were reviewed and are negativ e except for as per HPI. Exam Narrative: General: well appearing, appears stated age. HEENT: normocephalic, atraumatic. Mucous membranes moist. EOMI, PERRLA, bilateral sclera anicteric, no conjunctival injection. Neck supple without JVD, lymphadenopathy, or bruit. Respiratory: clear to ascultation bilaterally. No rales/rhonic/wheezes. Cardiovascular: Regular rate and rhythm, normal S1-S2 upon ascultation. No murmurs, rubs, or clicks. PMI is nondisplaced, capillary refill less than 3 second. Abdomen: Soft, round, no pulsatile masses, nondistended and nontender. No rebound, no guarding. No CVA tenderness, no hepatosplenomegaly. Bowel sounds present to all four quadrants. No high pitch or tinkling sounds, resonant to percussion. Extremities: No cyanosis, clubbing, or edema present. Pulses are palpable 2/2. Active ROM to all four extremities. Neuro: Alert and orientated x 4. PERRLA. Cranial nerves 2-12 intact without focal deficit. Skin: Warm, dry, and intact, without rash, erythema, or lesion. Psych: pleasant, cooperative, normal speech, normal affect, no hallucinations, no dysarthia 4 L nasal cannula Objective Data Vital Signs Vital Signs: Vital Signs - 24 hr 02/17/25 08:00 02/17/25 08:00 02/17/25 08:02 Temperature 97.7 F Pulse Rate 90 81 78 Respiratory Rate 20 20 Blood Pressure 117/75 Pulse Oximetry 97 Oxygen Delivery Oxygen Flow Rate Fraction of Inspired Oxygen 02/17/25 08:02 02/17/25 08:10 02/17/25 10:00 Temperature Pulse Rate 82 79 Respiratory Rate 20 Blood Pressure Pulse Oximetry 91 Oxygen Delivery High Flow Nasal Cannula Oxygen Flow Rate 7 Fraction of Inspired Oxygen 52 02/17/25 12:00 02/17/25 12:00 02/17/25 13:15 Temperature 98.3 F Pulse Rate 123 H 89 Respiratory Rate 20 Blood Pressure 147/89 H Pulse Oximetry 98 94 Oxygen Delivery High Flow Nasal Cannula Oxygen Flow Rate 5 Fraction of Inspired Oxygen 40 02/17/25 13:25 02/17/25 13:35 02/17/25 13:43 Temperature Pulse Rate 77 80 Respiratory Rate 20 20 Blood Pressure Pulse Oximetry 88 L Oxygen Delivery High Flow Nasal Cannula Oxygen Flow Rate 4 Fraction of Inspired Oxygen 36 02/17/25 13:44 02/17/25 14:00 02/17/25 15:00 Temperature Pulse Rate 85 Respiratory Rate Blood Pressure Pulse Oximetry 90 82 L Oxygen Delivery High Flow Nasal Cannula Room Air Oxygen Flow Rate 5 Fraction of Inspired Oxygen 40 02/17/25 15:02 02/17/25 15:03 02/17/25 15:04 Temperature Pulse Rate 92 Respiratory Rate Blood Pressure Pulse Oximetry 86 L 88 L 92 Oxygen Delivery High Flow Nasal Cannula High Flow Nasal Cannula High Flow Nasal Cannula Oxygen Flow Rate 3 5 6 Fraction of Inspired Oxygen 02/17/25 15:05 02/17/25 15:06 02/17/25 15:07 Temperature Pulse Rate 122 H 128 H Respiratory Rate Blood Pressure Pulse Oximetry 86 L 87 L 89 L Oxygen Delivery High Flow Nasal Cannula High Flow Nasal Cannula High Flow Nasal Cannula Oxygen Flow Rate 6 7 8 Fraction of Inspired Oxygen 02/17/25 15:15 02/17/25 15:36 02/17/25 15:56 Temperature 98.1 F Pulse Rate 88 84 79 Respiratory Rate 20 Blood Pressure 113/69 Pulse Oximetry 92 92 Oxygen Delivery High Flow Nasal Cannula Oxygen Flow Rate 6 Fraction of Inspired Oxygen 02/17/25 20:00 02/17/25 20:00 02/17/25 20:00 Temperature 97.9 F Pulse Rate 81 76 Respiratory Rate 16 Blood Pressure 128/75 Pulse Oximetry 91 90 Oxygen Delivery High Flow Nasal Cannula Oxygen Flow Rate 5 Fraction of Inspired Oxygen 02/17/25 20:27 02/17/25 20:29 02/17/25 20:38 Temperature Pulse Rate 80 80 83 Respiratory Rate 20 20 20 Blood Pressure Pulse Oximetry 90 Oxygen Delivery High Flow Nasal Cannula Oxygen Flow Rate 5 Fraction of Inspired Oxygen 40 02/18/25 00:00 02/18/25 00:00 02/18/25 04:00 Temperature 98.0 F Pulse Rate 83 78 80 Respiratory Rate 18 Blood Pressure 123/71 Pulse Oximetry 91 Oxygen Delivery Oxygen Flow Rate Fraction of Inspired Oxygen Intake/Output Intake/Output: Intake & Output 02/15/25 02/16/25 02/17/25 02/18/25 23:59 23:59 23:59 23:59 Intake Total 1560 1520 1570 540 Output Total 800 2530 2750 1500 Balance 793 -1010 -1180 960 Meds/Results Medications: Active Medications Generic Name Dose Route Start Last Admin Trade Name Freq PRN Reason Stop Dose Admin Acetaminophen 650 mg 02/14/25 15:07 Acetaminophen 325 Mg Tablet PO Q4H PRN Mild Pain (1-3) or Fever Albuterol/Ipratropium 3 ml 02/15/25 14:00 02/18/25 01:19 Ipratropium 0.5 Mg/Albuterol Sulfate 2.5 Mg (Base) Ampul.Neb 3 Ml INHALATION Not Given Q6HRT DEYA Aspirin 81 mg 02/16/25 09:00 02/17/25 08:58 Aspirin 81 Mg Enteric Tablet PO 81 mg QAM DEYA Administration Atorvastatin Calcium 40 mg 02/16/25 09:00 02/17/25 08:58 Atorvastatin 40 Mg Tablet PO 40 mg DAILY DEYA Administration Clopidogrel Bisulfate 75 mg 02/15/25 13:40 02/17/25 08:57 Clopidogrel Bisulfate 75 Mg Tablet PO 75 mg QAM DEYA Administration Dextrose 12.5 gm 02/16/25 12:49 Dextrose 50% 25 Gm/50 Ml Syringe IV PUSH PRN PRN Hypoglycemia Protocol Docusate Sodium 100 mg 02/14/25 15:07 Docusate Sodium 100 Mg Capsule PO BID PRN Constipation Empagliflozin 10 mg 02/16/25 09:00 02/17/25 08:57 Empagliflozin 10 Mg Tablet PO 10 mg DAILY DEYA Administration Enoxaparin Sodium 40 mg 02/15/25 09:00 02/17/25 08:57 Enoxaparin 40 Mg/0.4 Ml Syringe SUB-Q 40 mg DAILY DEYA Administration Furosemide 40 mg 02/16/25 17:00 02/17/25 17:09 Furosemide 40 Mg Tablet PO 40 mg BID DEYA Administration Glucagon 1 mg 02/16/25 12:49 Glucagon For Inj 1 Mg Vial IM PRN PRN Hypoglycemia Protocol Glucose 15 gm 02/16/25 12:49 Glucose Oral Gel 15 Gm Of Glucse In 37.5 Gm Tube PO PRN PRN Hypoglycemia Protocol Dextrose 1,000 mls @ 100 mls/hr 02/16/25 12:49 Dextrose 5% 1,000 Ml IVPB PRN PRN Hypoglycemia Protocol Insulin Aspart 2 - 5 units 02/16/25 17:00 02/17/25 17:10 Insulin Aspart (*Bkc) 100 Units/Ml SUB-Q 2 units TIDWM DEYA Administration Protocol Insulin Aspart 1 - 2 units 02/16/25 21:00 02/17/25 21:11 Insulin Aspart (*Bkc) 100 Units/Ml SUB-Q Not Given HS DEYA Protocol Sacubitril/Valsartan 1 tab 02/15/25 21:00 02/17/25 21:10 Sacubitril/Valsartan 24-26 Mg Tablet PO 1 tab Q12HR DEYA Administration Spironolactone 25 mg 02/16/25 09:00 02/17/25 08:57 Spironolactone 25 Mg Tablet PO 25 mg QAM DEYA Administration Radiology Results: ITS Impressions Chest X-Ray 02/14/25 07:41 IMPRESSION: 1. Interstitial pulmonary edema and/or pneumonitis. 2. Mild cardiomegaly. Chest CTA 02/14/25 08:13 IMPRESSION: 1. No PE identified. 2. Interstitial pulmonary edema. 3. Moderate pleural effusions. 4. Cardiomegaly. Labs Labs: Laboratory Results - last 24 hr 02/17/25 02/17/25 02/17/25 07:22 10:53 15:10 WBC RBC Hgb Hct MCV MCH MCHC RDW Plt Count MPV Immature Gran % (Auto) Neut % (Auto) Lymph % (Auto) [place] % (Auto) Eos % (Auto) Baso % (Auto) Lymph # (Auto) [place] # (Auto) Eos # (Auto) Baso # (Auto) Abs Immat Gran (auto) Absolute Neuts (auto) Absolute Nucleated RBC Nucleated RBC % Sodium Potassium Chloride Carbon Dioxide Anion Gap BUN Creatinine Estim Creat Clear Calc Estimated GFR Glucose POC Capillary Glucose 135 H 130 H 219 H Calcium Magnesium Total Bilirubin AST ALT Alkaline Phosphatase Total Protein Albumin 02/17/25 02/18/25 19:54 04:07 WBC 14.3 H RBC 5.77 Hgb 16.8 Hct 51.4 MCV 89.1 MCH 29.1 MCHC 32.7 RDW 13.2 Plt Count 364 MPV 9.9 Immature Gran % (Auto) 0.5 Neut % (Auto) 72.2 Lymph % (Auto) 13.5 L [place] % (Auto) 9.8 H Eos % (Auto) 3.4 Baso % (Auto) 0.6 Lymph # (Auto) 1.93 [place] # (Auto) 1.4 H Eos # (Auto) 0.5 H Baso # (Auto) 0.1 Abs Immat Gran (auto) 0.07 H Absolute Neuts (auto) 10.3 H Absolute Nucleated RBC 0.000 Nucleated RBC % 0.0 Sodium 135 L Potassium 3.6 Chloride 99 Carbon Dioxide 28 Anion Gap 8 BUN 19 Creatinine 0.99 Estim Creat Clear Calc 64 Estimated GFR > 60 Glucose 129 H POC Capillary Glucose 194 H Calcium 8.6 Magnesium 2.5 H Total Bilirubin 0.8 AST 25 ALT 23 Alkaline Phosphatase 100 Total Protein 7.3 Albumin 3.6 Quality VTE Prophylaxis VTE prophylaxis: mechanical ordered and pharmacologic ordered Hospitalist MIPS Advance Care Plan I have confirmed that the patient's Advanced Care Plan is present, code status is documented, or surrogate decision maker is listed in patient medical record.: Yes Medication Reconciliation I have utilized all available resources to obtain, update and review the patients current medications (includes all prescriptions, OTC, herbals, cannabis, and nutritional supplements).: Yes
[2025-02-18] MEDS: IPRATROPIUM 0.5 MG/ALBUTEROL SULFATE 2.5 MG (BASE) AMPUL.NEB 3 ML INHALATION ×2 (07:59→20:04)
--- NOTE | 2025-02-18 08:56 | P.PNCA_ITS ---
Progress Note: A&P Assessment and Plan (1) Congestive heart failure: Code(s): I50.9 - Heart failure, unspecified Status: Acute Assessment and Plan: 64-year-old male with no known prior cardiac history; heavy tobacco abuse presented with 2 day history of shortness of breath and cough with expectoration. Influenza A/B and COVID negative. CT negative for PE. NTproBNP elevated. EKG showed sinus rhythm, high-grade AV block with junctional escape rhythm. On telemetry, he has been in sinus rhythm with PVCs. Patient's troponins were elevated. He underwent cardiac catheterization on 02/15/2025 which showed occluded small caliber proximal left circumflex artery- likely chronic total occlusion; moderate disease in other major epicardial vessels. On echocardiogram, patient was found to have moderate LV systolic dysfunction with LVEF 35-40%. -dyspnea has improved. IV lasix was changed to PO, but patient continues to require O2 6L NC -GDMT for CHF with reduced ejection fraction. Holding off on beta-idalia for now due to presentation with bradyarrhythmia. Continue sacubitril/valsartan, empagliflozin, spironolactone. -evaluation for underlying possible COPD/emphysema as per primary team. Bronchodilators as needed. -continue telemetry monitoring -will update CXR and pBNP if pulmonary vascular congestion consider changing back to IV lasix. (2) Non-ST elevation (NSTEMI) myocardial infarction: Code(s): I21.4 - Non-ST elevation (NSTEMI) myocardial infarction Status: Acute Assessment and Plan: Cardiac catheterization performed showed occluded small caliber proximal LCX- likely chronic total occlusion. Moderate disease elsewhere. Dual antiplatelet treatment with aspirin clopidogrel due to presentation with non ST elevation CO (ticagrelor not chosen due to presentation with AV block); high-intensity statin. Continued surveillance for progression of CAD as an outpatient. Smoking cessation counseling was done. Subjective Date/time seen: 02/18/25 08:56 Interval history: 02/18/25-patient is sitting up in bed. Denies shortness of breath, does report cough. No chest pain or pressure. No edema. Continues to require 6L NC Review of Systems Review of Systems: General: Negative for fever, chills, fatigue Psychological: Negative for anxiety, depression Ophthalmic: negative for loss of vision ENT: Negative for epistaxis, headaches Allergy and immunology: Negative for hives, nasal congestion Hematologic and lymphatic: Negative for overt bleeding problems Endocrine: Negative for hot flashes, palpitations Respiratory: Positive for cough, dyspnea improved Cardiovascular: Negative for chest pain, positive for dyspnea Gastrointestinal: Negative for abdominal pain, nausea, vomiting, hematochezia Musculoskeletal: Negative for myalgia, joint pains Neurological: Negative for weakness Dermatological: Negative for rash, skin discoloration Exam Narrative: PHYSICAL EXAMINATION: GENERAL: Alert, oriented, no acute distress MENTAL STATUS: affect appropriate to mood EYES: Extraocular movements intact, no pallor EARS: External ears appear normal, hearing grossly normal NOSE: Normal and patent, no discharge MOUTH: Mucous membranes moist, tongue normal NECK: Supple, no JVD CHEST: Coarse breath sounds HEART: Normal rate, regular rhythm with ectopic beats ABDOMEN: Soft, nontender NEUROLOGICAL: Alert, oriented, normal speech, no gross motor deficits MUSCULOSKELETAL: No major deformity, no amputation EXTREMITIES: No pedal edema, no clubbing, no cyanosis SKIN: no rash on the exposed area, no cyanosis PSYCHIATRIC: Normal mood, appropriate affect Objective Data Vital Signs Vital Signs: Vital Signs - 24 hr 02/17/25 10:00 02/17/25 12:00 02/17/25 12:00 Temperature 36.8 C Pulse Rate 79 123 H 89 Respiratory Rate 20 Blood Pressure 147/89 H Pulse Oximetry 98 Oxygen Delivery Oxygen Flow Rate Fraction of Inspired Oxygen 02/17/25 13:15 02/17/25 13:25 02/17/25 13:35 Temperature Pulse Rate 77 80 Respiratory Rate 20 20 Blood Pressure Pulse Oximetry 94 Oxygen Delivery High Flow Nasal Cannula Oxygen Flow Rate 5 Fraction of Inspired Oxygen 40 02/17/25 13:43 02/17/25 13:44 02/17/25 14:00 Temperature Pulse Rate 85 Respiratory Rate Blood Pressure Pulse Oximetry 88 L 90 Oxygen Delivery High Flow Nasal Cannula High Flow Nasal Cannula Oxygen Flow Rate 4 5 Fraction of Inspired Oxygen 36 40 02/17/25 15:00 02/17/25 15:02 02/17/25 15:03 Temperature Pulse Rate Respiratory Rate Blood Pressure Pulse Oximetry 82 L 86 L 88 L Oxygen Delivery Room Air High Flow Nasal Cannula High Flow Nasal Cannula Oxygen Flow Rate 3 5 Fraction of Inspired Oxygen 02/17/25 15:04 02/17/25 15:05 02/17/25 15:06 Temperature Pulse Rate 92 122 H Respiratory Rate Blood Pressure Pulse Oximetry 92 86 L 87 L Oxygen Delivery High Flow Nasal Cannula High Flow Nasal Cannula High Flow Nasal Cannula Oxygen Flow Rate 6 6 7 Fraction of Inspired Oxygen 02/17/25 15:07 02/17/25 15:15 02/17/25 15:36 Temperature 36.7 C Pulse Rate 128 H 88 84 Respiratory Rate 20 Blood Pressure 113/69 Pulse Oximetry 89 L 92 92 Oxygen Delivery High Flow Nasal Cannula High Flow Nasal Cannula Oxygen Flow Rate 8 6 Fraction of Inspired Oxygen 02/17/25 15:56 02/17/25 20:00 02/17/25 20:00 Temperature 36.6 C Pulse Rate 79 81 Respiratory Rate 16 Blood Pressure 128/75 Pulse Oximetry 91 90 Oxygen Delivery High Flow Nasal Cannula Oxygen Flow Rate 5 Fraction of Inspired Oxygen 02/17/25 20:00 02/17/25 20:27 02/17/25 20:29 Temperature Pulse Rate 76 80 80 Respiratory Rate 20 20 Blood Pressure Pulse Oximetry 90 Oxygen Delivery High Flow Nasal Cannula Oxygen Flow Rate 5 Fraction of Inspired Oxygen 40 02/17/25 20:38 02/18/25 00:00 02/18/25 00:00 Temperature 36.7 C Pulse Rate 83 83 78 Respiratory Rate 20 18 Blood Pressure 123/71 Pulse Oximetry 91 Oxygen Delivery Oxygen Flow Rate Fraction of Inspired Oxygen 02/18/25 04:00 02/18/25 07:59 02/18/25 08:00 Temperature Pulse Rate 80 74 88 Respiratory Rate 20 20 Blood Pressure 116/74 Pulse Oximetry 91 Oxygen Delivery Oxygen Flow Rate Fraction of Inspired Oxygen 02/18/25 08:04 02/18/25 08:05 Temperature Pulse Rate 80 Respiratory Rate 20 Blood Pressure Pulse Oximetry 90 Oxygen Delivery High Flow Nasal Cannula Oxygen Flow Rate 6 Fraction of Inspired Oxygen 44 Intake/Output Intake/Output: Intake & Output 02/15/25 02/16/25 02/17/25 02/18/25 23:59 23:59 23:59 23:59 Intake Total 1560 1520 1570 780 Output Total 800 3750 2750 1500 Balance 356 -1010 -1180 -720 Meds/Results Medications: Active Medications Generic Name Dose Route Start Last Admin Trade Name Freq PRN Reason Stop Dose Admin Acetaminophen 650 mg 02/14/25 15:07 Acetaminophen 325 Mg Tablet PO Q4H PRN Mild Pain (1-3) or Fever Albuterol/Ipratropium 3 ml 02/15/25 14:00 02/18/25 07:59 Ipratropium 0.5 Mg/Albuterol Sulfate 2.5 Mg (Base) Ampul.Neb 3 Ml INHALATION 3 ml Q6HRT DEYA Administration Aspirin 81 mg 02/16/25 09:00 02/17/25 08:58 Aspirin 81 Mg Enteric Tablet PO 81 mg QAM DEYA Administration Atorvastatin Calcium 40 mg 02/16/25 09:00 02/17/25 08:58 Atorvastatin 40 Mg Tablet PO 40 mg DAILY DEYA Administration Clopidogrel Bisulfate 75 mg 02/15/25 13:40 02/17/25 08:57 Clopidogrel Bisulfate 75 Mg Tablet PO 75 mg QAM DEYA Administration Dextrose 12.5 gm 02/16/25 12:49 Dextrose 50% 25 Gm/50 Ml Syringe IV PUSH PRN PRN Hypoglycemia Protocol Docusate Sodium 100 mg 02/14/25 15:07 Docusate Sodium 100 Mg Capsule PO BID PRN Constipation Empagliflozin 10 mg 02/16/25 09:00 02/17/25 08:57 Empagliflozin 10 Mg Tablet PO 10 mg DAILY DEYA Administration Enoxaparin Sodium 40 mg 02/15/25 09:00 02/17/25 08:57 Enoxaparin 40 Mg/0.4 Ml Syringe SUB-Q 40 mg DAILY DEYA Administration Furosemide 40 mg 02/16/25 17:00 02/17/25 17:09 Furosemide 40 Mg Tablet PO 40 mg BID DEYA Administration Glucagon 1 mg 02/16/25 12:49 Glucagon For Inj 1 Mg Vial IM PRN PRN Hypoglycemia Protocol Glucose 15 gm 02/16/25 12:49 Glucose Oral Gel 15 Gm Of Glucse In 37.5 Gm Tube PO PRN PRN Hypoglycemia Protocol Dextrose 1,000 mls @ 100 mls/hr 02/16/25 12:49 Dextrose 5% 1,000 Ml IVPB PRN PRN Hypoglycemia Protocol Insulin Aspart 2 - 5 units 02/16/25 17:00 02/17/25 17:10 Insulin Aspart (*Bkc) 100 Units/Ml SUB-Q 2 units TIDWM DEYA Administration Protocol Insulin Aspart 1 - 2 units 02/16/25 21:00 02/17/25 21:11 Insulin Aspart (*Bkc) 100 Units/Ml SUB-Q Not Given HS DEYA Protocol Sacubitril/Valsartan 1 tab 02/15/25 21:00 02/17/25 21:10 Sacubitril/Valsartan 24-26 Mg Tablet PO 1 tab Q12HR DEYA Administration Spironolactone 25 mg 02/16/25 09:00 02/17/25 08:57 Spironolactone 25 Mg Tablet PO 25 mg QAM DEYA Administration Radiology Results: ITS Impressions Chest X-Ray 02/14/25 07:41 IMPRESSION: 1. Interstitial pulmonary edema and/or pneumonitis. 2. Mild cardiomegaly. Chest CTA 02/14/25 08:13 IMPRESSION: 1. No PE identified. 2. Interstitial pulmonary edema. 3. Moderate pleural effusions. 4. Cardiomegaly. Labs Labs: Laboratory Results - last 24 hr 02/17/25 02/17/25 02/17/25 10:53 15:10 19:54 WBC RBC Hgb Hct MCV MCH MCHC RDW Plt Count MPV Immature Gran % (Auto) Neut % (Auto) Lymph % (Auto) [place] % (Auto) Eos % (Auto) Baso % (Auto) Lymph # (Auto) [place] # (Auto) Eos # (Auto) Baso # (Auto) Abs Immat Gran (auto) Absolute Neuts (auto) Absolute Nucleated RBC Nucleated RBC % Sodium Potassium Chloride Carbon Dioxide Anion Gap BUN Creatinine Estim Creat Clear Calc Estimated GFR Glucose POC Capillary Glucose 130 H 219 H 194 H Calcium Magnesium Total Bilirubin AST ALT Alkaline Phosphatase Total Protein Albumin 02/18/25 02/18/25 04:07 07:22 WBC 14.3 H RBC 5.77 Hgb 16.8 Hct 51.4 MCV 89.1 MCH 29.1 MCHC 32.7 RDW 13.2 Plt Count 364 MPV 9.9 Immature Gran % (Auto) 0.5 Neut % (Auto) 72.2 Lymph % (Auto) 13.5 L [place] % (Auto) 9.8 H Eos % (Auto) 3.4 Baso % (Auto) 0.6 Lymph # (Auto) 1.93 [place] # (Auto) 1.4 H Eos # (Auto) 0.5 H Baso # (Auto) 0.1 Abs Immat Gran (auto) 0.07 H Absolute Neuts (auto) 10.3 H Absolute Nucleated RBC 0.000 Nucleated RBC % 0.0 Sodium 135 L Potassium 3.6 Chloride 99 Carbon Dioxide 28 Anion Gap 8 BUN 19 Creatinine 0.99 Estim Creat Clear Calc 64 Estimated GFR > 60 Glucose 129 H POC Capillary Glucose 127 H Calcium 8.6 Magnesium 2.5 H Total Bilirubin 0.8 AST 25 ALT 23 Alkaline Phosphatase 100 Total Protein 7.3 Albumin 3.6
[2025-02-18] MEDS: ENOXAPARIN 40 MG/0.4 ML SYRINGE SUB-Q (09:31)
[2025-02-18] MEDS: FUROSEMIDE 40 MG TABLET PO (09:31)
[2025-02-18] MEDS: ASPIRIN 81 MG ENTERIC TABLET PO (09:31)
[2025-02-18] MEDS: EMPAGLIFLOZIN 10 MG TABLET PO (09:31)
[2025-02-18] MEDS: SPIRONOLACTONE 25 MG TABLET PO (09:31)
[2025-02-18] MEDS: CLOPIDOGREL BISULFATE 75 MG TABLET PO (09:31)
[2025-02-18] MEDS: ATORVASTATIN 40 MG TABLET PO (09:31)
[2025-02-18] MEDS: SACUBITRIL/VALSARTAN 24-26 MG TABLET 1 TAB PO ×2 (09:31→20:45)
[2025-02-18 09:32] LABS: NT Pro B Type Natriuretic Pept 1060 pg/mL (19.9-100)
[2025-02-18] MEDS: FUROSEMIDE INJ 40 MG/4 ML VIAL IV PUSH (11:41)
[2025-02-18] MEDS: INSULIN ASPART (*BKC) 100 UNITS/ML SUB-Q ×3 (11:41→20:14)
--- NOTE | 2025-02-18 17:34 | PC.NURSE ---
This patient, Moi Aguilar, was transferred to [facility] on 02/18/25 at 1710. Personal belongings sent with patient. Report given to Ayala. Appropriate documentation sent with patient.
[2025-02-19] VITALS (17 sets, daily range): BP systolic 110–125; BP diastolic 56–85; PULSE 75–89; RESP 16–20; TEMP 36.3–37.1; O2SAT 90–94
[2025-02-19 07:02] LABS: Hematocrit 53.3 % (42.0-52.0); Hemoglobin 17.3 g/dL (14.0-18.0); Mean Corpuscular HGB Conc 32.5 g/dl (32-36); Mean Corpuscular Hemoglobin 29.2 pg (26-34); Mean Corpuscular Volume 90.0 fl (80-100); Platelet Count Result 369 k/mm3 (150-375); Red Blood Count 5.92 M/mm3 (4.6-6.20); White Blood Count 14.0 K/mm3 (4.5-10.0)
[2025-02-19 07:35] LABS: NT Pro B Type Natriuretic Pept 889 pg/mL (19.9-100)
[2025-02-19 07:54] LABS: Alanine Aminotransferase 24 U/L (6-50); Albumin Level 3.9 g/dL (3.5-5.1); Alkaline Phosphatase 108 U/L (38-126); Anion Gap 8 mmol/L (4-12); Aspartate Amino Transferase 32 U/L (17-59); Bilirubin,Total 0.8 mg/dL (0.2-1.3); Blood Urea Nitrogen 23 mg/dL (9-20); Calcium 8.7 mg/dL (8.4-10.2); Carbon Dioxide 28 mmol/L (22-30); Chloride 101 mmol/L (98-107); Estimated CRCL calculation 56 ml/min; Estimated Glomerular Filt Rate > 60; Glucose 140 mg/dL (65-110); Potassium 3.9 mmol/L (3.4-5.0); Sodium 137 mmol/L (137-145); Total Protein 7.7 g/dL (6.3-8.2)
[2025-02-19] MEDS: IPRATROPIUM 0.5 MG/ALBUTEROL SULFATE 2.5 MG (BASE) AMPUL.NEB 3 ML INHALATION ×3 (08:01→20:31)
[2025-02-19] MEDS: ATORVASTATIN 40 MG TABLET PO (08:09)
[2025-02-19] MEDS: ASPIRIN 81 MG ENTERIC TABLET PO (08:09)
[2025-02-19] MEDS: CLOPIDOGREL BISULFATE 75 MG TABLET PO (08:09)
[2025-02-19] MEDS: SPIRONOLACTONE 25 MG TABLET PO (08:10)
[2025-02-19] MEDS: EMPAGLIFLOZIN 10 MG TABLET PO (08:10)
[2025-02-19] MEDS: SACUBITRIL/VALSARTAN 24-26 MG TABLET 1 TAB PO ×2 (08:10→21:35)
[2025-02-19] MEDS: ENOXAPARIN 40 MG/0.4 ML SYRINGE SUB-Q (08:10)
[2025-02-19 11:34] LABS: Liters per Minute 2.0 LPM
--- NOTE | 2025-02-19 12:50 | PM.PNCARD ---
Progress Note: A&P Assessment and Plan (1) Congestive heart failure: Code(s): I50.9 - Heart failure, unspecified Status: Acute Assessment and Plan: 64-year-old male with no known prior cardiac history; heavy tobacco abuse presented with 2 day history of shortness of breath and cough with expectoration. Influenza A/B and COVID negative. CT negative for PE. NTproBNP elevated. EKG showed sinus rhythm, high-grade AV block with junctional escape rhythm. On telemetry, he has been in sinus rhythm with PVCs. Patient's troponins were elevated. 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 On echocardiogram, patient was found to have moderate LV systolic dysfunction with LVEF 35-40%. -dyspnea has improved. IV lasix was changed to PO, but patient continues to require O2 6L NC, resumed IV lasix, with improvement in breathing. Will continue to monitor. His pBNP remains elevated and CT chest reviewed and demonstrated mild pulmonary edema -GDMT for CHF with reduced ejection fraction. Holding off on beta-idalia for now due to presentation with bradyarrhythmia. Continue sacubitril/valsartan, empagliflozin, spironolactone. -evaluation for underlying possible COPD/emphysema as per primary team. Bronchodilators as needed. 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 Moderate disease elsewhere. Dual antiplatelet treatment with aspirin clopidogrel due to presentation with non ST elevation UT (ticagrelor not chosen due to presentation with AV block); high-intensity statin. Continued surveillance for progression of CAD as an outpatient. Smoking cessation counseling was done. Subjective Date/time seen: 02/19/25 12:50 Interval history: 02/18/25-patient is sitting up in bed. Denies shortness of breath, does report cough. No chest pain or pressure. No edema. Continues to require 6L NC 02/19/25-Patient sitting up in bed, he states breathing easier after IV lasix yesterday, but still on 6L O2 NC. No chest pain or pressure. He lost IV access today and has not gotten any further IV lasix. Review of Systems Review of Systems: General: Negative for fever, chills, fatigue Psychological: Negative for anxiety, depression Ophthalmic: negative for loss of vision ENT: Negative for epistaxis, headaches Allergy and immunology: Negative for hives, nasal congestion Hematologic and lymphatic: Negative for overt bleeding problems Endocrine: Negative for hot flashes, palpitations Respiratory: Positive for cough, dyspnea improved Cardiovascular: Negative for chest pain, positive for dyspnea Gastrointestinal: Negative for abdominal pain, nausea, vomiting, hematochezia Musculoskeletal: Negative for myalgia, joint pains Neurological: Negative for weakness Dermatological: Negative for rash, skin discoloration Exam Narrative: PHYSICAL EXAMINATION: GENERAL: Alert, oriented, no acute distress MENTAL STATUS: affect appropriate to mood EYES: Extraocular movements intact, no pallor EARS: External ears appear normal, hearing grossly normal NOSE: Normal and patent, no discharge MOUTH: Mucous membranes moist, tongue normal NECK: Supple, no JVD CHEST: Coarse breath sounds HEART: Normal rate, regular rhythm with ectopic beats ABDOMEN: Soft, nontender NEUROLOGICAL: Alert, oriented, normal speech, no gross motor deficits MUSCULOSKELETAL: No major deformity, no amputation EXTREMITIES: No pedal edema, no clubbing, no cyanosis SKIN: no rash on the exposed area, no cyanosis PSYCHIATRIC: Normal mood, appropriate affect Objective Data Vital Signs Vital Signs: Vital Signs - 24 hr 02/18/25 16:00 02/18/25 16:00 02/18/25 20:00 Temperature 36.3 C L Pulse Rate 80 83 83 Respiratory Rate 16 Blood Pressure 107/75 Pulse Oximetry 94 Oxygen Delivery Oxygen Flow Rate Fraction of Inspired Oxygen 02/18/25 20:05 02/18/25 20:13 02/18/25 20:45 Temperature Pulse Rate 77 78 Respiratory Rate 20 20 Blood Pressure Pulse Oximetry 92 Oxygen Delivery High Flow Nasal Cannula Oxygen Flow Rate 5 Fraction of Inspired Oxygen 44 02/18/25 20:55 02/19/25 00:00 02/19/25 04:00 Temperature 37.2 C Pulse Rate 82 79 75 Respiratory Rate 18 Blood Pressure 105/64 Pulse Oximetry 91 Oxygen Delivery Oxygen Flow Rate Fraction of Inspired Oxygen 02/19/25 05:32 02/19/25 08:00 02/19/25 08:00 Temperature 37.0 C 36.3 C L Pulse Rate 78 83 Respiratory Rate 18 18 Blood Pressure 111/68 110/56 L Pulse Oximetry 94 90 90 Oxygen Delivery High Flow Nasal Cannula Oxygen Flow Rate 5 Fraction of Inspired Oxygen 02/19/25 08:00 02/19/25 08:02 02/19/25 08:08 Temperature Pulse Rate 81 82 83 Respiratory Rate 20 20 Blood Pressure Pulse Oximetry Oxygen Delivery Oxygen Flow Rate Fraction of Inspired Oxygen 02/19/25 12:00 02/19/25 12:14 Temperature 37.1 C Pulse Rate 82 78 Respiratory Rate 18 Blood Pressure 115/70 Pulse Oximetry 94 Oxygen Delivery Oxygen Flow Rate Fraction of Inspired Oxygen Intake/Output Intake/Output: Intake & Output 02/16/25 02/17/25 02/18/25 02/19/25 23:59 23:59 23:59 23:59 Intake Total 1520 1570 1542 600 Output Total 2530 2750 3400 1475 [facility] -[id number] [id number] [phone] [phone] Meds/Results Medications: Active Medications Generic Name Dose Route Start Last Admin Trade Name Freq PRN Reason Stop Dose Admin Acetaminophen 650 mg 02/14/25 15:07 Acetaminophen 325 Mg Tablet PO Q4H PRN Mild Pain (1-3) or Fever Albuterol/Ipratropium 3 ml 02/15/25 14:00 02/19/25 08:01 Ipratropium 0.5 Mg/Albuterol Sulfate 2.5 Mg (Base) Ampul.Neb 3 Ml INHALATION 3 ml Q6HRT DEYA Administration Aspirin 81 mg 02/16/25 09:00 02/19/25 08:09 Aspirin 81 Mg Enteric Tablet PO 81 mg QAM DEYA Administration Atorvastatin Calcium 40 mg 02/16/25 09:00 02/19/25 08:09 Atorvastatin 40 Mg Tablet PO 40 mg DAILY DEYA Administration Clopidogrel Bisulfate 75 mg 02/15/25 13:40 02/19/25 08:09 Clopidogrel Bisulfate 75 Mg Tablet PO 75 mg QAM DEYA Administration Dextrose 12.5 gm 02/16/25 12:49 Dextrose 50% 25 Gm/50 Ml Syringe IV PUSH PRN PRN Hypoglycemia Protocol Docusate Sodium 100 mg 02/14/25 15:07 Docusate Sodium 100 Mg Capsule PO BID PRN Constipation Empagliflozin 10 mg 02/16/25 09:00 02/19/25 08:10 Empagliflozin 10 Mg Tablet PO 10 mg DAILY DEYA Administration Enoxaparin Sodium 40 mg 02/15/25 09:00 02/19/25 08:10 Enoxaparin 40 Mg/0.4 Ml Syringe SUB-Q 40 mg DAILY DEYA Administration Furosemide 40 mg 02/20/25 09:00 Furosemide Inj 40 Mg/4 Ml Vial IV PUSH DAILY DEYA Furosemide 40 mg 02/19/25 12:49 Furosemide Inj 40 Mg/4 Ml Vial IV PUSH 02/19/25 12:50 ONCE ONE Glucagon 1 mg 02/16/25 12:49 Glucagon For Inj 1 Mg Vial IM PRN PRN Hypoglycemia Protocol Glucose 15 gm 02/16/25 12:49 Glucose Oral Gel 15 Gm Of Glucse In 37.5 Gm Tube PO PRN PRN Hypoglycemia Protocol Dextrose 1,000 mls @ 100 mls/hr 02/16/25 12:49 Dextrose 5% 1,000 Ml IVPB PRN PRN Hypoglycemia Protocol Insulin Aspart 2 - 5 units 02/16/25 17:00 02/19/25 11:48 Insulin Aspart (*Bkc) 100 Units/Ml SUB-Q Not Given TIDWM DEYA Protocol Insulin Aspart 1 - 2 units 02/16/25 21:00 02/18/25 20:14 Insulin Aspart (*Bkc) 100 Units/Ml SUB-Q 1 units HS DEYA Administration Protocol Sacubitril/Valsartan 1 tab 02/15/25 21:00 02/19/25 08:10 Sacubitril/Valsartan 24-26 Mg Tablet PO 1 tab Q12HR DEYA Administration Spironolactone 25 mg 02/16/25 09:00 02/19/25 08:10 Spironolactone 25 Mg Tablet PO 25 mg QAM DEYA Administration Radiology Results: ITS Impressions Chest CTA 02/14/25 08:13 IMPRESSION: 1. No PE identified. 2. Interstitial pulmonary edema. 3. Moderate pleural effusions. 4. Cardiomegaly. Chest CT 02/18/25 10:16 IMPRESSION: 1. Likely termination mild atelectasis and mild pulmonary edema along with tiny bilateral pleural effusions in the dependent lower lungs. 2. Mild emphysema. 3. Small pericardial effusion. Chest X-Ray 02/18/25 11:16 Impression: No acute cardiopulmonary abnormality. Labs Labs: Laboratory Results - last 24 hr 02/14/25 02/18/25 02/18/25 08:32 16:26 20:03 WBC RBC Hgb Hct MCV MCH MCHC RDW Plt Count MPV O2 Delivery Device Nasal cannula O2 Liters/Min 2.0 Sodium Potassium Chloride Carbon Dioxide Anion Gap BUN Creatinine Estim Creat Clear Calc Estimated GFR Glucose POC Capillary Glucose 226 H 299 H Calcium Total Bilirubin AST ALT Alkaline Phosphatase NT-Pro-B Natriuret Pep Total Protein Albumin 02/19/25 02/19/25 02/19/25 06:39 07:39 11:26 WBC 14.0 H RBC 5.92 Hgb 17.3 Hct 53.3 H MCV 90.0 MCH 29.2 MCHC 32.5 RDW 13.3 Plt Count 369 MPV 9.7 O2 Delivery Device O2 Liters/Min Sodium 137 Potassium 3.9 Chloride 101 Carbon Dioxide 28 Anion Gap 8 BUN 23 H Creatinine 1.13 Estim Creat Clear Calc 56 Estimated GFR > 60 Glucose 140 H POC Capillary Glucose 171 H 161 H Calcium 8.7 Total Bilirubin 0.8 AST 32 ALT 24 Alkaline Phosphatase 108 NT-Pro-B Natriuret Pep 889 H Total Protein 7.7 Albumin 3.9
[2025-02-19] MEDS: FUROSEMIDE INJ 40 MG/4 ML VIAL IV PUSH (13:24)
--- NOTE | 2025-02-19 16:40 | P.PNIM_ITS ---
Progress Note: A&P Assessment and Plan (1) Acute respiratory failure: Code(s): J96.00 - Acute respiratory failure, unspecified whether with hypoxia or hypercapnia Status: Acute Assessment and Plan: Secondary to CHF exacerbation Currently on 6 liters oxygen and requiring higher for ambulation Wean oxygen as able Started Lasix 40 mg p.o. q.d. (2) Leukocytosis: Code(s): D72.829 - Elevated white blood cell count, unspecified Status: Acute Assessment and Plan: No pneumonia seen on CT UA no signs of infection Denies fevers chills nausea vomiting (3) Hyponatremia: Code(s): E87.1 - Hypo-osmolality and hyponatremia Status: Acute Assessment and Plan: Will treat with diuretics (4) Hyperglycemia: Code(s): R73.9 - Hyperglycemia, unspecified Status: Acute Assessment and Plan: Edson PATEL SSI Plan NSTEMI with CAD Cardiac cath showed total occlusion of LCX Aspirin, Plavix, Lipitor cardiology following Ischemic cardiomyopathy with exacerbation ECHO showed EF 35-40% Cardiac cath showed totoal occlusion of LCX on medical treatment Continue Lasix, Entresto, Spironolactone, Jardiance cardiology following Acute hypoxemic respiratory failure from CHF continue Diuretics and titrate oxygen with clinical course On 6 liters this morning Bradyarrhythmia EKG showed high grade AV block now in sinus rhythm no BB and monitor DVT prophylaxis on Sq Lovenox awaiting improvement of oxygen requirement for discharge Subjective Date/time seen: 02/19/25 16:40 Interval history: Patient still requiring nasal oxygen. BMP 889. Started Lasix 40 mg p.o. q.d. Review of Systems Review of Systems: 12 systems were reviewed and are negativ e except for as per HPI. Exam Narrative: General: well appearing, appears stated age. HEENT: normocephalic, atraumatic. Mucous membranes moist. EOMI, PERRLA, bilateral sclera anicteric, no conjunctival injection. Neck supple without JVD, lymphadenopathy, or bruit. Respiratory: clear to ascultation bilaterally. No rales/rhonic/wheezes. Cardiovascular: Regular rate and rhythm, normal S1-S2 upon ascultation. No mu rmurs, rubs, or clicks. PMI is nondisplaced, capillary refill less than 3 second. Abdomen: Soft, round, no pulsatile masses, nondistended and nontender. No rebound, no guarding. No CVA tenderness, no hepatosplenomegaly. Bowel sounds present to all four quadrants. No high pitch or tinkling sounds, resonant to percussion. Extremities: No cyanosis, clubbing, or edema present. Pulses are palpable 2/2. Active ROM to all four extremities. Neuro: Alert and orientated x 4. PERRLA. Cranial nerves 2-12 intact without focal deficit. Skin: Warm, dry, and intact, without rash, erythema, or lesion. Psych: pleasant, cooperative, normal speech, normal affect, no hallucinations, no dysarthia 4 L nasal cannula Objective Data Vital Signs Vital Signs: Vital Signs - 24 hr 02/18/25 20:00 02/18/25 20:05 02/18/25 20:13 Temperature Pulse Rate 83 77 78 Respiratory Rate 20 20 Blood Pressure Pulse Oximetry Oxygen Delivery Oxygen Flow Rate Fraction of Inspired Oxygen 02/18/25 20:45 02/18/25 20:55 02/19/25 00:00 Temperature 99 F Pulse Rate 82 79 Respiratory Rate 18 Blood Pressure 105/64 Pulse Oximetry 92 91 Oxygen Delivery High Flow Nasal Cannula Oxygen Flow Rate 5 Fraction of Inspired Oxygen 44 02/19/25 04:00 02/19/25 05:32 02/19/25 08:00 Temperature 98.6 F 97.3 F L Pulse Rate 75 78 83 Respiratory Rate 18 18 Blood Pressure 111/68 110/56 L Pulse Oximetry 94 90 Oxygen Delivery Oxygen Flow Rate Fraction of Inspired Oxygen 02/19/25 08:00 02/19/25 08:00 02/19/25 08:02 Temperature Pulse Rate 81 82 Respiratory Rate 20 Blood Pressure Pulse Oximetry 90 Oxygen Delivery High Flow Nasal Cannula Oxygen Flow Rate 5 Fraction of Inspired Oxygen 02/19/25 08:08 02/19/25 12:00 02/19/25 12:14 Temperature 98.7 F Pulse Rate 83 82 78 Respiratory Rate 20 18 Blood Pressure 115/70 Pulse Oximetry 94 Oxygen Delivery Oxygen Flow Rate Fraction of Inspired Oxygen 02/19/25 13:23 02/19/25 14:03 02/19/25 14:04 Temperature Pulse Rate 82 Respiratory Rate 17 Blood Pressure 120/62 Pulse Oximetry 93 Oxygen Delivery Nasal Cannula Oxygen Flow Rate 5 Fraction of Inspired Oxygen 02/19/25 14:12 02/19/25 16:00 Temperature 97.4 F L Pulse Rate 89 84 Respiratory Rate 17 18 Blood Pressure 125/66 Pulse Oximetry 93 Oxygen Delivery Oxygen Flow Rate Fraction of Inspired Oxygen Intake/Output Intake/Output: Intake & Output 02/16/25 02/17/25 02/18/25 02/19/25 23:59 23:59 23:59 23:59 Intake Total 1520 1570 1542 840 Output Total 2530 2750 3550 1299 [facility]5531 -[phone] Meds/Results Medications: Active Medications Generic Name Dose Route Start Last Admin Trade Name Freq PRN Reason Stop Dose Admin Acetaminophen 650 mg 02/14/25 15:07 Acetaminophen 325 Mg Tablet PO Q4H PRN Mild Pain (1-3) or Fever Albuterol/Ipratropium 3 ml 02/15/25 14:00 02/19/25 14:03 Ipratropium 0.5 Mg/Albuterol Sulfate 2.5 Mg (Base) Ampul.Neb 3 Ml INHALATION 3 ml Q6HRT DEYA Administration Aspirin 81 mg 02/16/25 09:00 02/19/25 08:09 Aspirin 81 Mg Enteric Tablet PO 81 mg QAM DEYA Administration Atorvastatin Calcium 40 mg 02/16/25 09:00 02/19/25 08:09 Atorvastatin 40 Mg Tablet PO 40 mg DAILY DEYA Administration Clopidogrel Bisulfate 75 mg 02/15/25 13:40 02/19/25 08:09 Clopidogrel Bisulfate 75 Mg Tablet PO 75 mg QAM DEYA Administration Dextrose 12.5 gm 02/16/25 12:49 Dextrose 50% 25 Gm/50 Ml Syringe IV PUSH PRN PRN Hypoglycemia Protocol Docusate Sodium 100 mg 02/14/25 15:07 Docusate Sodium 100 Mg Capsule PO BID PRN Constipation Empagliflozin 10 mg 02/16/25 09:00 02/19/25 08:10 Empagliflozin 10 Mg Tablet PO 10 mg DAILY DEYA Administration Enoxaparin Sodium 40 mg 02/15/25 09:00 02/19/25 08:10 Enoxaparin 40 Mg/0.4 Ml Syringe SUB-Q 40 mg DAILY DEYA Administration Furosemide 40 mg 02/20/25 09:00 Furosemide Inj 40 Mg/4 Ml Vial IV PUSH DAILY DEYA Glucagon 1 mg 02/16/25 12:49 Glucagon For Inj 1 Mg Vial IM PRN PRN Hypoglycemia Protocol Glucose 15 gm 02/16/25 12:49 Glucose Oral Gel 15 Gm Of Glucse In 37.5 Gm Tube PO PRN PRN Hypoglycemia Protocol Dextrose 1,000 mls @ 100 mls/hr 02/16/25 12:49 Dextrose 5% 1,000 Ml IVPB PRN PRN Hypoglycemia Protocol Insulin Aspart 2 - 5 units 02/16/25 17:00 02/19/25 11:48 Insulin Aspart (*Bkc) 100 Units/Ml SUB-Q Not Given TIDWM DEYA Protocol Insulin Aspart 1 - 2 units 02/16/25 21:00 02/18/25 20:14 Insulin Aspart (*Bkc) 100 Units/Ml SUB-Q 1 units HS DEAY Administration Protocol Sacubitril/Valsartan 1 tab 02/15/25 21:00 02/19/25 08:10 Sacubitril/Valsartan 24-26 Mg Tablet PO 1 tab Q12HR DEYA Administration Spironolactone 25 mg 02/16/25 09:00 02/19/25 08:10 Spironolactone 25 Mg Tablet PO 25 mg QAM DEYA Administration Radiology Results: ITS Impressions Chest CTA 02/14/25 08:13 IMPRESSION: 1. No PE identified. 2. Interstitial pulmonary edema. 3. Moderate pleural effusions. 4. Cardiomegaly. Chest CT 02/18/25 10:16 IMPRESSION: 1. Likely termination mild atelectasis and mild pulmonary edema along with tiny bilateral pleural effusions in the dependent lower lungs. 2. Mild emphysema. 3. Small pericardial effusion. Chest X-Ray 02/18/25 11:16 Impression: No acute cardiopulmonary abnormality. Labs Labs: Laboratory Results - last 24 hr 02/14/25 02/18/25 02/19/25 08:32 20:03 06:39 WBC 14.0 H RBC 5.92 Hgb 17.3 Hct 53.3 H MCV 90.0 MCH 29.2 MCHC 32.5 RDW 13.3 Plt Count 369 MPV 9.7 O2 Delivery Device Nasal cannula O2 Liters/Min 2.0 Sodium 137 Potassium 3.9 Chloride 101 Carbon Dioxide 28 Anion Gap 8 BUN 23 H Creatinine 1.13 Estim Creat Clear Calc 56 Estimated GFR > 60 Glucose 140 H POC Capillary Glucose 299 H Calcium 8.7 Total Bilirubin 0.8 AST 32 ALT 24 Alkaline Phosphatase 108 NT-Pro-B Natriuret Pep 889 H Total Protein 7.7 Albumin 3.9 02/19/25 02/19/25 02/19/25 07:39 11:26 16:12 WBC RBC Hgb Hct MCV MCH MCHC RDW Plt Count MPV O2 Delivery Device O2 Liters/Min Sodium Potassium Chloride Carbon Dioxide Anion Gap BUN Creatinine Estim Creat Clear Calc Estimated GFR Glucose POC Capillary Glucose 171 H 161 H 229 H Calcium Total Bilirubin AST ALT Alkaline Phosphatase NT-Pro-B Natriuret Pep Total Protein Albumin Quality VTE Prophylaxis VTE prophylaxis: mechanical ordered and pharmacologic ordered Hospitalist MIPS Advance Care Plan I have confirmed that the patient's Advanced Care Plan is present, code status is documented, or surrogate decision maker is listed in patient medical record.: Yes Medication Reconciliation I have utilized all available resources to obtain, update and review the patients current medications (includes all prescriptions, OTC, herbals, cannabis, and nutritional supplements).: Yes
[2025-02-19] MEDS: INSULIN ASPART (*BKC) 100 UNITS/ML SUB-Q (16:56)
[2025-02-20] VITALS (17 sets, daily range): BP systolic 105–115; BP diastolic 68–78; PULSE 71–88; RESP 16–20; TEMP 35.9–37.5; O2SAT 91–94
[2025-02-20] MEDS: IPRATROPIUM 0.5 MG/ALBUTEROL SULFATE 2.5 MG (BASE) AMPUL.NEB 3 ML INHALATION ×4 (02:47→20:20)
[2025-02-20 06:15] LABS: Potassium 4.1 mmol/L (3.4-5.0)
[2025-02-20] MEDS: ASPIRIN 81 MG ENTERIC TABLET PO (08:11)
[2025-02-20] MEDS: ATORVASTATIN 40 MG TABLET PO (08:11)
[2025-02-20] MEDS: SPIRONOLACTONE 25 MG TABLET PO (08:11)
[2025-02-20] MEDS: FUROSEMIDE 40 MG TABLET PO (08:11)
[2025-02-20] MEDS: ENOXAPARIN 40 MG/0.4 ML SYRINGE SUB-Q (08:11)
[2025-02-20] MEDS: CLOPIDOGREL BISULFATE 75 MG TABLET PO (08:11)
[2025-02-20] MEDS: EMPAGLIFLOZIN 10 MG TABLET PO (08:11)
[2025-02-20] MEDS: SACUBITRIL/VALSARTAN 24-26 MG TABLET 1 TAB PO ×2 (08:12→21:30)
[2025-02-20 10:40] LABS: Hematocrit 54.0 % (42.0-52.0); Hemoglobin 17.3 g/dL (14.0-18.0); Mean Corpuscular HGB Conc 32.0 g/dl (32-36); Mean Corpuscular Hemoglobin 29.2 pg (26-34); Mean Corpuscular Volume 91.2 fl (80-100); Platelet Count Result 377 k/mm3 (150-375); Red Blood Count 5.92 M/mm3 (4.6-6.20); White Blood Count 15.6 K/mm3 (4.5-10.0)
[2025-02-20 10:51] LABS: Alanine Aminotransferase 25 U/L (6-50); Albumin Level 3.9 g/dL (3.5-5.1); Alkaline Phosphatase 116 U/L (38-126); Anion Gap 12 mmol/L (4-12); Aspartate Amino Transferase 31 U/L (17-59); Bilirubin,Total 0.9 mg/dL (0.2-1.3); Blood Urea Nitrogen 29 mg/dL (9-20); Calcium 9.0 mg/dL (8.4-10.2); Carbon Dioxide 23 mmol/L (22-30); Chloride 100 mmol/L (98-107); Estimated CRCL calculation 51 ml/min; Estimated Glomerular Filt Rate 59; Glucose 130 mg/dL (65-110); Sodium 135 mmol/L (137-145); Total Protein 7.9 g/dL (6.3-8.2)
[2025-02-20 10:57] LABS: NT Pro B Type Natriuretic Pept 809 pg/mL (19.9-100)
[2025-02-20] MEDS: INSULIN ASPART (*BKC) 100 UNITS/ML SUB-Q ×2 (12:11→21:30)
--- NOTE | 2025-02-20 12:31 | PM.PNCARD ---
Progress Note: A&P Assessment and Plan (1) Congestive heart failure: Code(s): I50.9 - Heart failure, unspecified Status: Acute (2) Non-ST elevation (NSTEMI) myocardial infarction: Code(s): I21.4 - Non-ST elevation (NSTEMI) myocardial infarction Status: Acute (3) High-grade atrioventricular block: Code(s): I44.39 - Other atrioventricular block Status: Acute Plan 64-year-old man with heavy tobacco abuse history presented with chest pain admitted for non ST elevation DE NSTEMI -status post cardiac catheterization with no significant obstructive CAD -continue aspirin 81 mg p.o. daily and Plavix 75 mg p.o. daily for minimum of 1 year; continue atorvastatin 40 mg every evening -he is not on a beta-idalia secondary to high-grade AV block on presentation which has since resolved -he has been counseled on tobacco cessation New onset systolic heart failure -on Entresto 24-26 mg p.o. b.i.d., spironolactone 25 mg p.o. daily, and Jardiance 10 mg p.o. daily -once again now on beta-idalia secondary to high-grade AV block on presentation which has since resolved -these Lasix dependent and currently on 40 mg p.o. daily -would benefit from outpatient cardiac MRI prior to higher intensity exercise High-grade AV block -he would benefit from outpatient Holter monitor -if he has complete resolution and no recurrence, may be a candidate for beta blockade given above findings We will follow-up p.r.n.. Will arrange for outpatient follow-up Subjective Date/time seen: 02/20/25 12:31 Interval history: Overall he is doing well. He is not on oxygen while eating his lunch. Denies any chest pain or shortness of breath. Denies orthopnea. No lower extremity swelling. Review of Systems Cardiovascular: Cardiovascular: Reports as per HPI Respiratory: Respiratory: Reports as per HPI Exam Const: General: comfortable HENMT: Mouth: Yes moist mucous membranes Eyes: EOM: EOMs intact bilaterally Neck: Neck: no JVD Resp: Effort & Inspection: normal respiratory effort Auscultation: rales Cardio: Rate: regular rate Rhythm: regular rhythm Extrem: General: no pedal edema Objective Data Vital Signs Vital Signs: Vital Signs - 24 hr 02/19/25 13:23 02/19/25 14:03 02/19/25 14:04 Temperature Pulse Rate 82 Respiratory Rate 17 Blood Pressure 120/62 Pulse Oximetry 93 Oxygen Delivery Nasal Cannula Oxygen Flow Rate 5 02/19/25 14:12 02/19/25 16:00 02/19/25 16:00 Temperature 36.3 C L Pulse Rate 89 84 88 Respiratory Rate 17 18 Blood Pressure 125/66 Pulse Oximetry 93 Oxygen Delivery Oxygen Flow Rate 02/19/25 20:00 02/19/25 20:00 02/19/25 20:31 Temperature Pulse Rate 83 79 Respiratory Rate Blood Pressure Pulse Oximetry 92 93 Oxygen Delivery Nasal Cannula Nasal Cannula Oxygen Flow Rate 5 02/19/25 20:31 02/19/25 20:31 02/19/25 20:45 Temperature Pulse Rate 79 79 80 Respiratory Rate 20 20 20 Blood Pressure Pulse Oximetry 93 Oxygen Delivery Nasal Cannula Oxygen Flow Rate 5 02/19/25 21:06 02/20/25 00:00 02/20/25 02:47 Temperature 36.3 C L Pulse Rate 78 80 71 Respiratory Rate 16 16 Blood Pressure 110/85 Pulse Oximetry 93 92 Oxygen Delivery Nasal Cannula Oxygen Flow Rate 5 02/20/25 02:47 02/20/25 03:00 02/20/25 04:00 Temperature Pulse Rate 71 72 79 Respiratory Rate 16 20 Blood Pressure Pulse Oximetry Oxygen Delivery Oxygen Flow Rate 02/20/25 05:47 02/20/25 07:20 02/20/25 07:20 Temperature 37.5 C Pulse Rate 79 77 Respiratory Rate 16 19 Blood Pressure 105/71 Pulse Oximetry 94 91 Oxygen Delivery High Flow Therapy with Na Oxygen Flow Rate 5 02/20/25 07:25 02/20/25 08:00 02/20/25 08:00 Temperature Pulse Rate 77 85 Respiratory Rate 19 Blood Pressure Pulse Oximetry 91 Oxygen Delivery High Flow Therapy with Na Oxygen Flow Rate 5 02/20/25 08:14 Temperature Pulse Rate Respiratory Rate Blood Pressure 109/78 Pulse Oximetry Oxygen Delivery Oxygen Flow Rate Intake/Output Intake/Output: Intake & Output 02/17/25 02/18/25 02/19/25 02/20/25 23:59 23:59 23:59 23:59 Intake Total 1570 1542 1080 780 Output Total 2750 3400 2900 800 Balance -1180 -1858 -1820 -20 Meds/Results Medications: Active Medications Generic Name Dose Route Start Last Admin Trade Name Fernyq PRN Reason Stop Dose Admin Acetaminophen 650 mg 02/14/25 15:07 Acetaminophen 325 Mg Tablet PO Q4H PRN Mild Pain (1-3) or Fever Albuterol/Ipratropium 3 ml 02/15/25 14:00 02/20/25 07:19 Ipratropium 0.5 Mg/Albuterol Sulfate 2.5 Mg (Base) Ampul.Neb 3 Ml INHALATION 3 ml Q6HRT DEYA Administration Aspirin 81 mg 02/16/25 09:00 02/20/25 08:11 Aspirin 81 Mg Enteric Tablet PO 81 mg QAM DEYA Administration Atorvastatin Calcium 40 mg 02/16/25 09:00 02/20/25 08:11 Atorvastatin 40 Mg Tablet PO 40 mg DAILY DEYA Administration Clopidogrel Bisulfate 75 mg 02/15/25 13:40 02/20/25 08:11 Clopidogrel Bisulfate 75 Mg Tablet PO 75 mg QAM DEYA Administration Dextrose 12.5 gm 02/16/25 12:49 Dextrose 50% 25 Gm/50 Ml Syringe IV PUSH PRN PRN Hypoglycemia Protocol Docusate Sodium 100 mg 02/14/25 15:07 Docusate Sodium 100 Mg Capsule PO BID PRN Constipation Empagliflozin 10 mg 02/16/25 09:00 02/20/25 08:11 Empagliflozin 10 Mg Tablet PO 10 mg DAILY DEYA Administration Enoxaparin Sodium 40 mg 02/15/25 09:00 02/20/25 08:11 Enoxaparin 40 Mg/0.4 Ml Syringe SUB-Q 40 mg DAILY DEYA Administration Furosemide 40 mg 02/20/25 09:00 02/20/25 08:11 Furosemide 40 Mg Tablet PO 40 mg DAILY DEYA Administration Glucagon 1 mg 02/16/25 12:49 Glucagon For Inj 1 Mg Vial IM PRN PRN Hypoglycemia Protocol Glucose 15 gm 02/16/25 12:49 Glucose Oral Gel 15 Gm Of Glucse In 37.5 Gm Tube PO PRN PRN Hypoglycemia Protocol Dextrose 1,000 mls @ 100 mls/hr 02/16/25 12:49 Dextrose 5% 1,000 Ml IVPB PRN PRN Hypoglycemia Protocol Insulin Aspart 2 - 5 units 02/16/25 17:00 02/20/25 12:11 Insulin Aspart (*Bkc) 100 Units/Ml SUB-Q 2 units TIDWM DEYA Administration Protocol Insulin Aspart 1 - 2 units 02/16/25 21:00 02/19/25 21:12 Insulin Aspart (*Bkc) 100 Units/Ml SUB-Q Not Given HS [facility] Protocol Sacubitril/Valsartan 1 tab 02/15/25 21:00 02/20/25 08:12 Sacubitril/Valsartan 24-26 Mg Tablet PO 1 tab Q12HR DEYA Administration Spironolactone 25 mg 02/16/25 09:00 02/20/25 08:11 Spironolactone 25 Mg Tablet PO 25 mg QAM DEYA Administration Radiology Results: ITS Impressions Chest CTA 02/14/25 08:13 IMPRESSION: 1. No PE identified. 2. Interstitial pulmonary edema. 3. Moderate pleural effusions. 4. Cardiomegaly. Chest CT 02/18/25 10:16 IMPRESSION: 1. Likely termination mild atelectasis and mild pulmonary edema along with tiny bilateral pleural effusions in the dependent lower lungs. 2. Mild emphysema. 3. Small pericardial effusion. Chest X-Ray 02/18/25 11:16 Impression: No acute cardiopulmonary abnormality. Venous Doppler Study 02/19/25 19:29 IMPRESSION: Noncompressible vessel within the antecubital fossa may represent thrombus. There was no sonographic evidence of deep vein thrombosis in the right upper extremity. Labs Labs: Laboratory Results - last 24 hr 02/19/25 02/19/25 02/20/25 16:12 20:23 05:26 WBC 15.6 H RBC 5.92 Hgb 17.3 Hct 54.0 H MCV 91.2 MCH 29.2 MCHC 32.0 RDW 13.3 Plt Count 377 H MPV 9.9 Sodium 135 L Potassium 4.1 Chloride 100 Carbon Dioxide 23 Anion Gap 12 BUN 29 H Creatinine 1.25 Estim Creat Clear Calc 51 Estimated GFR 59 Glucose 130 H POC Capillary Glucose 229 H 173 H Calcium 9.0 Total Bilirubin 0.9 AST 31 ALT 25 Alkaline Phosphatase 116 NT-Pro-B Natriuret Pep 809 H Total Protein 7.9 Albumin 3.9 02/20/25 02/20/25 07:45 11:49 WBC RBC Hgb Hct MCV MCH MCHC RDW Plt Count MPV Sodium Potassium Chloride Carbon Dioxide Anion Gap BUN Creatinine Estim Creat Clear Calc Estimated GFR Glucose POC Capillary Glucose 169 H 216 H Calcium Total Bilirubin AST ALT Alkaline Phosphatase NT-Pro-B Natriuret Pep Total Protein Albumin
--- NOTE | 2025-02-20 17:15 | P.PNIM_ITS ---
Progress Note: A&P Assessment and Plan (1) Acute respiratory failure: Code(s): J96.00 - Acute respiratory failure, unspecified whether with hypoxia or hypercapnia Status: Acute Assessment and Plan: Secondary to CHF exacerbation Currently on 6 liters oxygen and requiring higher for ambulation Wean oxygen as able Started Lasix 40 mg p.o. q.d. (2) Leukocytosis: Code(s): D72.829 - Elevated white blood cell count, unspecified Status: Acute Assessment and Plan: No pneumonia seen on CT UA no signs of infection Denies fevers chills nausea vomiting (3) Hyponatremia: Code(s): E87.1 - Hypo-osmolality and hyponatremia Status: Acute Assessment and Plan: Will treat with diuretics (4) Hyperglycemia: Code(s): R73.9 - Hyperglycemia, unspecified Status: Acute Assessment and Plan: Edson PATEL SSI Plan NSTEMI with CAD Cardiac cath showed total occlusion of LCX Aspirin, Plavix, Lipitor cardiology following Ischemic cardiomyopathy with exacerbation ECHO showed EF 35-40% Cardiac cath showed totoal occlusion of LCX on medical treatment Continue Lasix, Entresto, Spironolactone, Jardiance cardiology following Acute hypoxemic respiratory failure from CHF continue Diuretics and titrate oxygen with clinical course On 6 liters this morning Bradyarrhythmia EKG showed high grade AV block now in sinus rhythm no BB and monitor DVT prophylaxis on Sq Lovenox awaiting improvement of oxygen requirement for discharge Subjective Date/time seen: 02/20/25 17:15 Interval history: No acute events overnight. Will try to wean oxygen. BNP a.m. Review of Systems Review of Systems: 12 systems were reviewed and are negativ e except for as per HPI. Exam Narrative: General: well appearing, appears stated age. HEENT: normocephalic, atraumatic. Mucous membranes moist. EOMI, PERRLA, bilateral sclera anicteric, no conjunctival injection. Neck supple without JVD, lymphadenopathy, or bruit. Respiratory: clear to ascultation bilaterally. No rales/rhonic/wheezes. Cardiovascular: Regular rate and rhythm, normal S1-S2 upon ascultation. No murmurs, rubs, or clicks. PMI is nondisplaced, capillary refill less than 3 second. Abdomen: Soft, round, no pulsatile masses, nondistended and nontender. No rebound, no guarding. No CVA tenderness, no hepatosplenomegaly. Bowel sounds present to all four quadrants. No high pitch or tinkling sounds, resonant to percussion. Extremities: No cyanosis, clubbing, or edema present. Pulses are palpable 2/2. Active ROM to all four extremities. Neuro: Alert and orientated x 4. PERRLA. Cranial nerves 2-12 intact without focal deficit. Skin: Warm, dry, and intact, without rash, erythema, or lesion. Psych: pleasant, cooperative, normal speech, normal affect, no hallucinations, no dysarthia 4 L nasal cannula Objective Data Vital Signs Vital Signs: Vital Signs - 24 hr 02/19/25 20:00 02/19/25 20:00 02/19/25 20:31 Temperature Pulse Rate 83 79 Respiratory Rate Blood Pressure Pulse Oximetry 92 93 Oxygen Delivery Nasal Cannula Nasal Cannula Oxygen Flow Rate 5 02/19/25 20:31 02/19/25 20:31 02/19/25 20:45 Temperature Pulse Rate 79 79 80 Respiratory Rate 20 20 20 Blood Pressure Pulse Oximetry 93 Oxygen Delivery Nasal Cannula Oxygen Flow Rate 5 02/19/25 21:06 02/20/25 00:00 02/20/25 02:47 Temperature 97.3 F L Pulse Rate 78 80 71 Respiratory Rate 16 16 Blood Pressure 110/85 Pulse Oximetry 93 92 Oxygen Delivery Nasal Cannula Oxygen Flow Rate 5 02/20/25 02:47 02/20/25 03:00 02/20/25 04:00 Temperature Pulse Rate 71 72 79 Respiratory Rate 16 20 Blood Pressure Pulse Oximetry Oxygen Delivery Oxygen Flow Rate 02/20/25 05:47 02/20/25 07:20 02/20/25 07:20 Temperature 99.5 F Pulse Rate 79 77 Respiratory Rate 16 19 Blood Pressure 105/71 Pulse Oximetry 94 91 Oxygen Delivery High Flow Therapy with Na Oxygen Flow Rate 5 02/20/25 07:25 02/20/25 08:00 02/20/25 08:00 Temperature Pulse Rate 77 85 Respiratory Rate 19 Blood Pressure Pulse Oximetry 91 Oxygen Delivery High Flow Therapy with Na Oxygen Flow Rate 5 02/20/25 08:14 02/20/25 12:00 02/20/25 13:22 Temperature Pulse Rate 88 80 Respiratory Rate 20 Blood Pressure 109/78 Pulse Oximetry Oxygen Delivery Oxygen Flow Rate 02/20/25 13:25 02/20/25 15:31 02/20/25 16:00 Temperature 96.7 F L Pulse Rate 77 80 85 Respiratory Rate 17 18 Blood Pressure 115/68 Pulse Oximetry 92 Oxygen Delivery Oxygen Flow Rate Intake/Output Intake/Output: Intake & Output 02/17/25 02/18/25 02/19/25 02/20/25 23:59 23:59 23:59 23:59 Intake Total 1570 1542 1080 1020 Output Total 2750 3400 2900 800 Balance -6184 -9623 -7900 220 Meds/Results Medications: Active Medications Generic Name Dose Route Start Last Admin Trade Name Freq PRN Reason Stop Dose Admin Acetaminophen 650 mg 02/14/25 15:07 Acetaminophen 325 Mg Tablet PO Q4H PRN Mild Pain (1-3) or Fever Albuterol/Ipratropium 3 ml 02/15/25 14:00 02/20/25 13:23 Ipratropium 0.5 Mg/Albuterol Sulfate 2.5 Mg (Base) Ampul.Neb 3 Ml INHALATION 3 ml Q6HRT DEYA Administration Aspirin 81 mg 02/16/25 09:00 02/20/25 08:11 Aspirin 81 Mg Enteric Tablet PO 81 mg QAM DYEA Administration Atorvastatin Calcium 40 mg 02/16/25 09:00 02/20/25 08:11 Atorvastatin 40 Mg Tablet PO 40 mg DAILY DEYA Administration Clopidogrel Bisulfate 75 mg 02/15/25 13:40 02/20/25 08:11 Clopidogrel Bisulfate 75 Mg Tablet PO 75 mg QAM DEYA Administration Dextrose 12.5 gm 02/16/25 12:49 Dextrose 50% 25 Gm/50 Ml Syringe IV PUSH PRN PRN Hypoglycemia Protocol Docusate Sodium 100 mg 02/14/25 15:07 Docusate Sodium 100 Mg Capsule PO BID PRN Constipation Empagliflozin 10 mg 02/16/25 09:00 02/20/25 08:11 Empagliflozin 10 Mg Tablet PO 10 mg DAILY DEYA Administration Enoxaparin Sodium 40 mg 02/15/25 09:00 02/20/25 08:11 Enoxaparin 40 Mg/0.4 Ml Syringe SUB-Q 40 mg DAILY DEYA Administration Furosemide 40 mg 02/20/25 09:00 02/20/25 08:11 Furosemide 40 Mg Tablet PO 40 mg DAILY DEYA Administration Glucagon 1 mg 02/16/25 12:49 Glucagon For Inj 1 Mg Vial IM PRN PRN Hypoglycemia Protocol Glucose 15 gm 02/16/25 12:49 Glucose Oral Gel 15 Gm Of Glucse In 37.5 Gm Tube PO PRN PRN Hypoglycemia Protocol Dextrose 1,000 mls @ 100 mls/hr 02/16/25 12:49 Dextrose 5% 1,000 Ml IVPB PRN PRN Hypoglycemia Protocol Insulin Aspart 2 - 5 units 02/16/25 17:00 02/20/25 17:03 Insulin Aspart (*Bkc) 100 Units/Ml SUB-Q Not Given TIDWM DEYA Protocol Insulin Aspart 1 - 2 units 02/16/25 21:00 02/19/25 21:12 Insulin Aspart (*Bkc) 100 Units/Ml SUB-Q Not Given HS DEYA Protocol Sacubitril/Valsartan 1 tab 02/15/25 21:00 02/20/25 08:12 Sacubitril/Valsartan 24-26 Mg Tablet PO 1 tab Q12HR DEYA Administration Spironolactone 25 mg 02/16/25 09:00 02/20/25 08:11 Spironolactone 25 Mg Tablet PO 25 mg QAM DEYA Administration Radiology Results: ITS Impressions Chest CTA 02/14/25 08:13 IMPRESSION: 1. No PE identified. 2. Interstitial pulmonary edema. 3. Moderate pleural effusions. 4. Cardiomegaly. Chest CT 02/18/25 10:16 IMPRESSION: 1. Likely termination mild atelectasis and mild pulmonary edema along with tiny bilateral pleural effusions in the dependent lower lungs. 2. Mild emphysema. 3. Small pericardial effusion. Chest X-Ray 02/18/25 11:16 Impression: No acute cardiopulmonary abnormality. Venous Doppler Study 02/19/25 19:29 IMPRESSION: Noncompressible vessel within the antecubital fossa may represent thrombus. There was no sonographic evidence of deep vein thrombosis in the right upper extremity. Labs Labs: Laboratory Results - last 24 hr 02/19/25 02/20/25 02/20/25 20:23 05:26 07:45 WBC 15.6 H RBC 5.92 Hgb 17.3 Hct 54.0 H MCV 91.2 MCH 29.2 MCHC 32.0 RDW 13.3 Plt Count 377 H MPV 9.9 Sodium 135 L Potassium 4.1 Chloride 100 Carbon Dioxide 23 Anion Gap 12 BUN 29 H Creatinine 1.25 Estim Creat Clear Calc 51 Estimated GFR 59 Glucose 130 H POC Capillary Glucose 173 H 169 H Calcium 9.0 Total Bilirubin 0.9 AST 31 ALT 25 Alkaline Phosphatase 116 NT-Pro-B Natriuret Pep 809 H Total Protein 7.9 Albumin 3.9 02/20/25 02/20/25 11:49 16:52 WBC RBC Hgb Hct MCV MCH MCHC RDW Plt Count MPV Sodium Potassium Chloride Carbon Dioxide Anion Gap BUN Creatinine Estim Creat Clear Calc Estimated GFR Glucose POC Capillary Glucose 216 H 169 H Calcium Total Bilirubin AST ALT Alkaline Phosphatase NT-Pro-B Natriuret Pep Total Protein Albumin Quality VTE Prophylaxis VTE prophylaxis: mechanical ordered and pharmacologic ordered Hospitalist MIPS Advance Care Plan I have confirmed that the patient's Advanced Care Plan is present, code status is documented, or surrogate decision maker is listed in patient medical record.: Yes Medication Reconciliation I have utilized all available resources to obtain, update and review the pa tients current medications (includes all prescriptions, OTC, herbals, cannabis, and nutritional supplements).: Yes
[2025-02-21] VITALS (22 sets, daily range): BP systolic 103–115; BP diastolic 69–77; PULSE 62–120; RESP 17–20; TEMP 36.1–36.4; O2SAT 82–95
[2025-02-21 06:09] LABS: Hematocrit 53.7 % (42.0-52.0); Hemoglobin 17.8 g/dL (14.0-18.0); Mean Corpuscular HGB Conc 33.1 g/dl (32-36); Mean Corpuscular Hemoglobin 30.0 pg (26-34); Mean Corpuscular Volume 90.4 fl (80-100); Platelet Count Result 379 k/mm3 (150-375); Red Blood Count 5.94 M/mm3 (4.6-6.20); White Blood Count 13.2 K/mm3 (4.5-10.0)
[2025-02-21 06:25] LABS: Alanine Aminotransferase 26 U/L (6-50); Albumin Level 4.0 g/dL (3.5-5.1); Alkaline Phosphatase 103 U/L (38-126); Anion Gap 7 mmol/L (4-12); Aspartate Amino Transferase 37 U/L (17-59); Bilirubin,Total 0.7 mg/dL (0.2-1.3); Blood Urea Nitrogen 31 mg/dL (9-20); Calcium 8.9 mg/dL (8.4-10.2); Carbon Dioxide 29 mmol/L (22-30); Chloride 100 mmol/L (98-107); Estimated CRCL calculation 55 ml/min; Estimated Glomerular Filt Rate > 60; Glucose 143 mg/dL (65-110); Potassium 4.0 mmol/L (3.4-5.0); Sodium 136 mmol/L (137-145); Total Protein 8.0 g/dL (6.3-8.2)
[2025-02-21 06:32] LABS: NT Pro B Type Natriuretic Pept 686 pg/mL (19.9-100)
[2025-02-21] MEDS: IPRATROPIUM 0.5 MG/ALBUTEROL SULFATE 2.5 MG (BASE) AMPUL.NEB 3 ML INHALATION (08:03)
[2025-02-21] MEDS: ENOXAPARIN 40 MG/0.4 ML SYRINGE SUB-Q (09:36)
[2025-02-21] MEDS: SACUBITRIL/VALSARTAN 24-26 MG TABLET 1 TAB PO ×2 (09:36→21:03)
[2025-02-21] MEDS: EMPAGLIFLOZIN 10 MG TABLET PO (09:36)
[2025-02-21] MEDS: ATORVASTATIN 40 MG TABLET PO (09:36)
[2025-02-21] MEDS: SPIRONOLACTONE 25 MG TABLET PO (09:36)
[2025-02-21] MEDS: ASPIRIN 81 MG ENTERIC TABLET PO (09:36)
[2025-02-21] MEDS: CLOPIDOGREL BISULFATE 75 MG TABLET PO (09:36)
[2025-02-21] MEDS: FUROSEMIDE 40 MG TABLET PO (09:36)
--- NOTE | 2025-02-21 10:07 | P.PNIM_ITS ---
Progress Note: A&P Assessment and Plan (1) Acute respiratory failure: Code(s): J96.00 - Acute respiratory failure, unspecified whether with hypoxia or hypercapnia Status: Acute Assessment and Plan: Secondary to CHF exacerbation Currently on 6 liters oxygen and requiring higher for ambulation Wean oxygen as able Started Lasix 40 mg p.o. q.d. (2) Leukocytosis: Code(s): D72.829 - Elevated white blood cell count, unspecified Status: Acute Assessment and Plan: No pneumonia seen on CT UA no signs of infection Denies fevers chills nausea vomiting (3) Hyponatremia: Code(s): E87.1 - Hypo-osmolality and hyponatremia Status: Acute Assessment and Plan: Will treat with diuretics (4) Hyperglycemia: Code(s): R73.9 - Hyperglycemia, unspecified Status: Acute Assessment and Plan: Edson PATEL SSI Plan NSTEMI with CAD Cardiac cath showed total occlusion of LCX Aspirin, Plavix, Lipitor cardiology following Ischemic cardiomyopathy with exacerbation ECHO showed EF 35-40% Cardiac cath showed totoal occlusion of LCX on medical treatment Continue Lasix, Entresto, Spironolactone, Jardiance cardiology following Acute hypoxemic respiratory failure from CHF continue Diuretics and titrate oxygen with clinical course On 6 liters this morning Unable to increase Lasix of 40 mg p.o. q.d. to b.i.d. due to soft blood pressure Continue Lasix 40 mg p.o. q.d. Bradyarrhythmia EKG showed high grade AV block now in sinus rhythm no BB and monitor DVT prophylaxis on Sq Lovenox awaiting improvement of oxygen requirement for discharge Subjective Date/time seen: 02/21/25 10:07 Interval history: Will perform home O2 eval. Patient still requiring 5-6 L oxygen. Baseline no oxygen at home. CTA shows no pulmonary embolism. Repeated chest CT shows mild pleural effusion but no significant finding. Increased Lasix 40 mg p.o. q.d. to b.i.d. but de-escalated Lasix to 40 mg p.o. q.d. due to soft blood pressure. Consulted pulmonology and appreciate recommendation Review of Systems Review of Systems: 12 systems were reviewed and are negativ e except for as per HPI. Exam Narrative: General: well appearing, appears stated age. HEENT: normocephalic, atraumatic. Mucous membranes moist. EOMI, PERRLA, bilateral sclera anicteric, no conjunctival injection. Neck supple without JVD, lymphadenopathy, or bruit. Respiratory: clear to ascultation bilaterally. No rales/rhonic/wheezes. Cardiovascular: Regular rate and rhythm, normal S1-S2 upon ascultation. No murmurs, rubs, or clicks. PMI is nondisplaced, capillary refill less than 3 second. Abdomen: Soft, round, no pulsatile masses, nondistended and nontender. No rebound, no guarding. No CVA tenderness, no hepatosplenomegaly. Bowel sounds present to all four quadrants. No high pitch or tinkling sounds, resonant to percussion. Extremities: No cyanosis, clubbing, or edema present. Pulses are palpable 2/2. Active ROM to all four extremities. Neuro: Alert and orientated x 4. PERRLA. Cranial nerves 2-12 intact without focal deficit. Skin: Warm, dry, and intact, without rash, erythema, or lesion. Psych: pleasant, cooperative, normal speech, normal affect, no hallucinations, no dysarthia 4 L nasal cannula Objective Data Vital Signs Vital Signs: Vital Signs - 24 hr 02/20/25 12:00 02/20/25 13:22 02/20/25 13:25 Temperature Pulse Rate 88 80 77 Respiratory Rate 20 17 Blood Pressure Pulse Oximetry Oxygen Delivery Oxygen Flow Rate 02/20/25 15:31 02/20/25 16:00 02/20/25 20:00 Temperature 96.7 F L Pulse Rate 80 85 Respiratory Rate 18 Blood Pressure 115/68 Pulse Oximetry 92 92 Oxygen Delivery Nasal Cannula Oxygen Flow Rate 5 02/20/25 20:00 02/20/25 22:55 02/20/25 23:10 Temperature 97.4 F L Pulse Rate 81 78 73 Respiratory Rate 18 Blood Pressure 115/75 Pulse Oximetry 92 91 Oxygen Delivery CPAP Oxygen Flow Rate 02/21/25 00:00 02/21/25 01:17 02/21/25 04:00 Temperature Pulse Rate 75 73 Respiratory Rate Blood Pressure Pulse Oximetry Oxygen Delivery Nasal Cannula Oxygen Flow Rate 02/21/25 05:32 02/21/25 08:03 02/21/25 08:03 Temperature 97.0 F L Pulse Rate 74 Respiratory Rate 17 Blood Pressure 106/77 Pulse Oximetry 92 91 Oxygen Delivery Nasal Cannula High Flow Therapy with Na Oxygen Flow Rate 5 02/21/25 08:04 02/21/25 08:08 Temperature Pulse Rate 78 82 Respiratory Rate 20 17 Blood Pressure Pulse Oximetry Oxygen Delivery Oxygen Flow Rate Intake/Output Intake/Output: Intake & Output 02/18/25 02/19/25 02/20/25 02/21/25 23:59 23:59 23:59 23:59 Intake Total 1542 1080 1800 240 Output Total 3400 2900 1875 775 [facility] -1858 -1820 -75 [phone] Meds/Results Medications: Active Medications Generic Name Dose Route Start Last Admin Trade Name Freq PRN Reason Stop Dose Admin Acetaminophen 650 mg 02/14/25 15:07 Acetaminophen 325 Mg Tablet PO Q4H PRN Mild Pain (1-3) or Fever Albuterol/Ipratropium 3 ml 02/15/25 14:00 02/21/25 08:03 Ipratropium 0.5 Mg/Albuterol Sulfate 2.5 Mg (Base) Ampul.Neb 3 Ml INHALATION 3 ml Q6HRT DEYA Administration Aspirin 81 mg 02/16/25 09:00 02/21/25 09:36 Aspirin 81 Mg Enteric Tablet PO 81 mg QAM DEYA Administration Atorvastatin Calcium 40 mg 02/16/25 09:00 02/21/25 09:36 Atorvastatin 40 Mg Tablet PO 40 mg DAILY DEYA Administration Clopidogrel Bisulfate 75 mg 02/15/25 13:40 02/21/25 09:36 Clopidogrel Bisulfate 75 Mg Tablet PO 75 mg QAM DEYA Administration Dextrose 12.5 gm 02/16/25 12:49 Dextrose 50% 25 Gm/50 Ml Syringe IV PUSH PRN PRN Hypoglycemia Protocol Docusate Sodium 100 mg 02/14/25 15:07 Docusate Sodium 100 Mg Capsule PO BID PRN Constipation Empagliflozin 10 mg 02/16/25 09:00 02/21/25 09:36 Empagliflozin 10 Mg Tablet PO 10 mg DAILY DEYA Administration Enoxaparin Sodium 40 mg 02/15/25 09:00 02/21/25 09:36 Enoxaparin 40 Mg/0.4 Ml Syringe SUB-Q 40 mg DAILY DEYA Administration Furosemide 40 mg 02/20/25 09:00 02/21/25 09:36 Furosemide 40 Mg Tablet PO 40 mg DAILY DEYA Administration Glucagon 1 mg 02/16/25 12:49 Glucagon For Inj 1 Mg Vial IM PRN PRN Hypoglycemia Protocol Glucose 15 gm 02/16/25 12:49 Glucose Oral Gel 15 Gm Of Glucse In 37.5 Gm Tube PO PRN PRN Hypoglycemia Protocol Dextrose 1,000 mls @ 100 mls/hr 02/16/25 12:49 Dextrose 5% 1,000 Ml IVPB PRN PRN Hypoglycemia Protocol Insulin Aspart 2 - 5 units 02/16/25 17:00 02/21/25 08:04 Insulin Aspart (*Bkc) 100 Units/Ml SUB-Q Not Given TIDWM DEYA Protocol Insulin Aspart 1 - 2 units 02/16/25 21:00 02/20/25 21:30 Insulin Aspart (*Bkc) 100 Units/Ml SUB-Q 1 units HS DEYA Administration Protocol Sacubitril/Valsartan 1 tab 02/15/25 21:00 02/21/25 09:36 Sacubitril/Valsartan 24-26 Mg Tablet PO 1 tab Q12HR DEYA Administration Spironolactone 25 mg 02/16/25 09:00 02/21/25 09:36 Spironolactone 25 Mg Tablet PO 25 mg QAM DEYA Administration Radiology Results: ITS Impressions Chest CTA 02/14/25 08:13 IMPRESSION: 1. No PE identified. 2. Interstitial pulmonary edema. 3. Moderate pleural effusions. 4. Cardiomegaly. Chest CT 02/18/25 10:16 IMPRESSION: 1. Likely termination mild atelectasis and mild pulmonary edema along with tiny bilateral pleural effusions in the dependent lower lungs. 2. Mild emphysema. 3. Small pericardial effusion. Chest X-Ray 02/18/25 11:16 Impression: No acute cardiopulmonary abnormality. Venous Doppler Study 02/19/25 19:29 IMPRESSION: Noncompressible vessel within the antecubital fossa may represent thrombus. There was no sonographic evidence of deep vein thrombosis in the right upper extremity. Labs Labs: Laboratory Results - last 24 hr 02/20/25 02/20/25 02/20/25 05:26 11:49 16:52 WBC 15.6 H RBC 5.92 Hgb 17.3 Hct 54.0 H MCV 91.2 MCH 29.2 MCHC 32.0 RDW 13.3 Plt Count 377 H MPV 9.9 Sodium 135 L Potassium 4.1 Chloride 100 Carbon Dioxide 23 Anion Gap 12 BUN 29 H Creatinine 1.25 Estim Creat Clear Calc 51 Estimated GFR 59 Glucose 130 H POC Capillary Glucose 216 H 169 H Calcium 9.0 Total Bilirubin 0.9 AST 31 ALT 25 Alkaline Phosphatase 116 NT-Pro-B Natriuret Pep 809 H Total Protein 7.9 Albumin 3.9 02/20/25 02/21/25 02/21/25 20:25 05:41 07:35 WBC 13.2 H RBC 5.94 Hgb 17.8 Hct 53.7 H MCV 90.4 MCH 30.0 MCHC 33.1 RDW 13.2 Plt Count 379 H MPV 9.7 Sodium 136 L Potassium 4.0 Chloride 100 Carbon Dioxide 29 Anion Gap 7 BUN 31 H Creatinine 1.16 Estim Creat Clear Calc 55 Estimated GFR > 60 Glucose 143 H POC Capillary Glucose 232 H 174 H Calcium 8.9 Total Bilirubin 0.7 AST 37 ALT 26 Alkaline Phosphatase 103 NT-Pro-B Natriuret Pep 686 H Total Protein 8.0 Albumin 4.0 Quality VTE Prophylaxis VTE prophylaxis: mechanical ordered and pharmacologic ordered Hospitalist MIPS Advance Care Plan I have confirmed that the patient's Advanced Care Plan is present, code status is documented, or surrogate decision maker is listed in patient medical record.: Yes Medication Reconciliation I have utilized all available resources to obtain, update and review the patients current medications (includes all prescriptions, OTC, herbals, cannabis, and nutritional supplements).: Yes
--- NOTE | 2025-02-21 10:39 | PCNWS ---
Weekly nutritional screen. Patient is tolerating current heart healthy diet with adequate intake 100% of meals. No weight loss reported. No nutritional recommendations at this time.
--- NOTE | 2025-02-21 14:07 | HOMEO2EVAL ---
Evaluation was performed at [facility] Home Oxygen Evaluation RC: Home Oxygen (O2) Evaluation Start: 02/21/25 11:31 Freq: ONCE Status: Active Protocol: RPE Activity Type Activity Date Activity User E-sign Co-sign Detail Recorded Client Recorded Date Recorded By Document 02/21/25 13:00 [email or web address] [email or web address] 02/21/25 14:06 DJO Document 02/21/25 13:10 [email or web address] [email or web address] 02/21/25 14:06 DJO Document 02/21/25 13:15 [email or web address] [email or web address] 02/21/25 14:06 DJO Document 02/21/25 13:20 [email or web address] [email or web address] 02/21/25 14:06 DJO Document 02/21/25 13:25 [email or web address] [email or web address] 02/21/25 14:06 DJO Document 02/21/25 13:40 [email or web address] [email or web address] 02/21/25 14:06 DJO 02/21/25 02/21/25 02/21/25 13:00 13:10 13:15 Home O2 Evaluation [Oxygen] -Test Phase Resting Resting Resting -Oxygen Delivery Room Air High Flow Nasal High Flow Nasal Cannula Cannula -Oxygen Flow Rate (L/min) 4 5 [Pulse Oximetry] -Pulse Oximetry (90-100 %) 82 L 88 L 90 [Pulse Rate] -Pulse Rate (60-100 beats/min) 92 89 88 [Charges] -Evaluation Charges O2 Evaluation by Pulmonary 02/21/25 02/21/25 02/21/25 13:20 13:25 13:40 Home O2 Evaluation [Oxygen] -Test Phase Exercise Exercise Resting -Oxygen Delivery High Flow Nasal High Flow Nasal High Flow Nasal Cannula Cannula Cannula -Oxygen Flow Rate (L/min) 5 6 5 [Pulse Oximetry] -Pulse Oximetry (90-100 %) 88 L 91 91 [Pulse Rate] -Pulse Rate (60-100 beats/min) 118 H 120 H 90 [Charges] -Evaluation Charges
--- NOTE | 2025-02-21 14:09 | PCRCNOTE ---
HOME O2 EVAL REPEATED, NO CHANGES FROM PREVIOUS TESTING. 5L REST AND 6L ACTIVITY. 2 TANKS IN ROOM FOR DISCHARGE. [facility]
--- NOTE | 2025-02-21 15:57 | PM.CNPUL ---
Assessment and Plan Assessment and plan (1) Hypoxia: Code(s): R09.02 - Hypoxemia Status: Acute Assessment and Plan: He has not used O2 in the past, admitted 02/14, has needed O2 since then, amount varies. His home oxygen study today shows that he needs 4 L at rest and 5 L with exertion. This patient is smoke for years, has not seen a doctor for about 15 years. I think that he may have baseline hypoxemia but this was not known until he was admitted with acute congestive heart failure and he may have underlying COPD. He has a daily cough with yellow sputum production, may have chronic bronchitis. (2) Tobacco abuse: Code(s): Z72.0 - Tobacco use Status: Acute Assessment and Plan: He has a 40 year history of smoking 1.5 packs per day, total of 60 pack years, last smoked before this admission. He will need information re: tobacco cessation and instruction before leaving. (3) Short of breath on exertion: Code(s): R06.02 - Shortness of breath Status: Acute Assessment and Plan: He reports more shortness of breath with exertion over the last few years, can walk up 1 flight of stairs, but 2 flights would be a struggle. Probably a mix of heart and lung disease. Plan plan: 1. Stop ipratropium/ albuterol nebulized q.6 hours scheduled. 2. Start Anoro 1 puff same time daily; this is for presumed COPD. He has a 40 year history of smoking 1.5 packs per day, total of 60 pack years. 3. Start albuterol inhaler 2 puffs q.6 hours p.r.n. shortness of breath or wheezing 4. Home oxygen study today Oct shows that he needs 4 L at rest, 5 L with exertion. 5. Add Cornet valve, instructed in use, 10 exhalations Q i.d. for pulmonary hygiene. He has a chronic cough at home which is productive with yellow sputum; he can use the Cornet at home for airway clearance. 6. 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 7. He can follow up in the pulmonary office in 3-4 weeks. Will plant to get PFT when he is at baseline. Will also repeat O2 evaluation, 6MW. I told him that we may be able to get him off O2 after he goes home and improves. 8. Tobacco cessation; really important michele with new systolic CHF, EF 35-40% and hypoxemia. 9. With low EF, it is important to know if he has sleep disordered breathing. Low EF and central/obstructive sleep apnea overlap, treating each improves the other. I will request overnight sleep study on his 4 L tonight, review in the morning before he goes home. 10. I will order a dose of prednisone for the am, and he can have a short taper at home, 40 mg x 5 days with breakfast. He should be able to improve his oxygenation with better pulmonary hygiene, PEP valve. I did not request Incentive spirometer, start with PEP valve. I appreciate being asked to see him, thank you. History of Present Illness History of Present Illness Consult date: 02/21/25 Requesting physician: Alex Arrington MD Chief complaint: CHF, Hypoxia Narrative: pt was seen Feb 21, 2025 at 16:00 Room 329, Dr Natalie Arrington asked me to see him for increasing O2 need, now on 5 L with saturation 91-93% NEW: Moi Aguilar is a [id number] who smokes, 1.5 packs per day since the age of 24, admitted Feb 14 through ED with shortness of breath for 2 days with more sputum compared to his baseline productive cough. had acute CHF, new diagnosis, EF 35-40%. His weight was 84.1 kg, and today Feb 21 down to 80.6 with diuresis. He had a Home O2 evaluation today, needed 4 L at rest and 5 L with exertion. This morning, Feb 21 his sat was 82% on 4 L , increased to 5 L. since admission he has been on albuterol and ipratropium nebulized q.6 hours. At home he coughs daily, 1 tsp of yellowish sputum multiple times per day probably up to a quarter cup most days. He does not have recurrent pneumonia, never had a history of asthma but he grew up in smoke. 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 He does notice some wheezing at home. Rarely he wakes at night coughing but not really for shortness of breath. Sleep: He estimates getting 7 hours of sleep at night. He does not really have dream recall. He wakes twice at night to urinate. He avoids naps during the week, he tries to take a 20 minutes nap on the weekends. Tobacco: 1.5 ppd age 24 x 62, 40 years, 60 pack years. DATA * 02/18/2025. CXR ; no acute cardiopulmonary findings * 02/14/25 echo; Mild LV enlargement, mild LVH, moderate LV systolic dysfunction, EF 35-40%; diastolic dysfunction is present. Inferior wall appears to be hypokinetic. Mild biatrial enlargement. Bubble study was performed, somewhat inadequate with suboptimal image quality, no large interatrial shunt was noted. Mild MR. Aortic valve is mildly sclerotic, mild aortic valve stenosis, maximum velocity 1.6 m/sec, mean gradient 11 mmHg. Unable to assess RVSP due to inadequate TR jet Dilated IVC. * 02/18/25; CTA ;IMPRESSION: 1. Likely termination mild atelectasis and mild pulmonary edema along with tiny bilateral pleural effusions in the dependent lower lungs. 2. Mild emphysema. 3. Small pericardial effusion. * 02/19/25; UE Dopplers; There was no sonographic evidence of deep vein thrombosis in the right upper extremity. Review of Systems Review of Systems: All systems reviewed & are unremarkable except as noted in HPI and below PMFSH Social History Social History Smoking packs per day: 1.5 Smoking cigarettes per day: 30.0 Years smoked: 43 Smoking pack-years: 64.50 Smoking status: Current every day smoker Tobacco type: cigarettes Alcohol intake: never Substance use: never Lack of Transportation: No Lack of Food: Never True Current Housing: I Have Housing Concerned About Future Housing: No Difficulty Paying Gas/Electric Bills: No Difficulty Paying for Meds: No Currently Unemployed: No Education: High School Diploma/GED Difficulty w/ Childcare or Family Care: No Spiritual care concerns: No Meds Home Medications and Allergies Home Medications ?Medication ?Instructions ?Recorded ?Confirmed ?Type No Home Medications 02/14/25 02/14/25 History Allergies Allergy/AdvReac Type Severity Reaction Status Date / Time No Known Allergies Allergy Verified 02/14/25 15:56 Vital Signs Vital Signs - 24 hr 02/20/25 16:00 02/20/25 20:00 02/20/25 20:00 Temperature Pulse Rate 85 81 Respiratory Rate Blood Pressure Pulse Oximetry 92 Oxygen Delivery Nasal Cannula Oxygen Flow Rate 5 02/20/25 22:55 02/20/25 23:10 02/21/25 00:00 Temperature 36.3 C L Pulse Rate 78 73 75 Respiratory Rate 18 Blood Pressure 115/75 Pulse Oximetry 92 91 Oxygen Delivery CPAP Oxygen Flow Rate 02/21/25 01:17 02/21/25 04:00 02/21/25 05:32 Temperature 36.1 C L Pulse Rate 73 74 Respiratory Rate 17 Blood Pressure 106/77 Pulse Oximetry 92 Oxygen Delivery Nasal Cannula Oxygen Flow Rate 02/21/25 08:00 02/21/25 08:03 02/21/25 08:03 Temperature 36.4 C Pulse Rate 81 Respiratory Rate 18 Blood Pressure 110/76 Pulse Oximetry 93 91 Oxygen Delivery Nasal Cannula High Flow Therapy with Na Oxygen Flow Rate 5 02/21/25 08:04 02/21/25 08:08 02/21/25 10:00 Temperature Pulse Rate 78 82 80 Respiratory Rate 20 17 17 Blood Pressure Pulse Oximetry 92 Oxygen Delivery High Flow Therapy with Na Oxygen Flow Rate 5 02/21/25 10:00 02/21/25 12:00 02/21/25 13:00 Temperature Pulse Rate 73 92 92 Respiratory Rate Blood Pressure Pulse Oximetry 82 L Oxygen Delivery Room Air Oxygen Flow Rate 02/21/25 13:10 02/21/25 13:15 02/21/25 13:20 Temperature Pulse Rate 89 88 118 H Respiratory Rate Blood Pressure Pulse Oximetry 88 L 90 88 L Oxygen Delivery High Flow Nasal Cannula High Flow Nasal Cannula High Flow Nasal Cannula Oxygen Flow Rate 4 5 5 02/21/25 13:25 02/21/25 13:36 02/21/25 13:40 Temperature Pulse Rate 120 H 81 85 Respiratory Rate 20 20 Blood Pressure Pulse Oximetry 91 Oxygen Delivery High Flow Nasal Cannula Oxygen Flow Rate 6 02/21/25 13:40 02/21/25 13:40 Temperature Pulse Rate 90 Respiratory Rate Blood Pressure Pulse Oximetry 92 91 Oxygen Delivery High Flow Therapy with Na High Flow Nasal Cannula Oxygen Flow Rate 4 5 Exam Narrative: GEN: Alert, oriented, not in distress. He is reclining in bed, not in respiratory distress. Nasal cannular 5 L saturation 91%. HEENT: pupils are equal, EOMI, symmetrical face; oral membranes moist NECK: Trachea is midline CHEST: Equal air entry, symmetric excursion, faint wheezes both bases end expiration, no crackles CV: Regular S1S2 no m/g/r Extremities : no clubbing, cyanosis, or edema. No calf tenderness. His hands are warm, good capillary refill PSYCH: normal thought and speech, gait not tested. Results Laboratory Findings 02/21/25 05:41 02/21/25 05:41 ABG, PT/INR, D-dimer: ABG ABG pH 7.417 (7.350-7.450) 02/14/25 08:32 ABG pCO2 33.5 mmHg (35.0-45.0) L 02/14/25 08:32 ABG pO2 57.3 mmHg (80.0-100.0) L 02/14/25 08:32 ABG O2 Saturation 90.6 % (95.0-100.0) L 02/14/25 08:32 PT/INR, D-dimer PT 14.6 Seconds (11.1-14.7) 02/14/25 07:23 INR 1.2 02/14/25 07:23 D-Dimer 0.76 ug/mL (<0.48) H 02/14/25 07:23 Abnormal lab findings: Abnormal Labs 02/14/25 02/14/25 02/14/25 06:57 07:23 08:32 WBC 14.3 H Hct Plt Count MPV 10.9 H Immature Gran % (Auto) 0.6 H Neut % (Auto) 77.9 H Lymph % (Auto) 12.0 L [place] % (Auto) [place] # (Auto) 1.2 H Eos # (Auto) Abs Immat Gran (auto) 0.08 H Absolute Neuts (auto) 11.1 H D-Dimer 0.76 H ABG pCO2 33.5 L ABG pO2 57.3 L ABG HCO3 21.1 L ABG O2 Saturation 90.6 L Oxyhemoglobin 86.6 L* Carboxyhemoglobin 3.0 H Reduced Hemoglobin 10.3 H Sodium 130 L Chloride 97 L Carbon Dioxide BUN 25 H Glucose 313 H POC Capillary Glucose Hemoglobin A1c Calcium Magnesium Troponin I NT-Pro-B Natriuret Pep 6540 H Albumin TSH (Reflex) Urine Glucose (UA) 02/14/25 02/15/25 02/15/25 20:26 04:03 09:32 WBC 13.8 H Hct Plt Count MPV 10.7 H Immature Gran % (Auto) Neut % (Auto) Lymph % (Auto) 17.7 L [place] % (Auto) 11.0 H [place] # (Auto) 1.5 H Eos # (Auto) Abs Immat Gran (auto) 0.05 H Absolute Neuts (auto) 9.4 H D-Dimer ABG pCO2 ABG pO2 ABG HCO3 ABG O2 Saturation Oxyhemoglobin Carboxyhemoglobin Reduced Hemoglobin Sodium 136 L Chloride Carbon Dioxide 31 H BUN Glucose 159 H POC Capillary Glucose Hemoglobin A1c Calcium 8.2 L Magnesium Troponin I 3.110 H* NT-Pro-B Natriuret Pep Albumin TSH (Reflex) 4.720 H Urine Glucose (UA) 3+ H 02/15/25 02/16/25 02/16/25 14:18 03:31 15:29 WBC 12.9 H Hct Plt Count MPV 10.5 H Immature Gran % (Auto) Neut % (Auto) Lymph % (Auto) 16.3 L [place] % (Auto) 9.8 H [place] # (Auto) 1.3 H Eos # (Auto) 0.4 H Abs Immat Gran (auto) 0.06 H Absolute Neuts (auto) 9.0 H D-Dimer ABG pCO2 ABG pO2 ABG HCO3 ABG O2 Saturation Oxyhemoglobin Carboxyhemoglobin Reduced Hemoglobin Sodium 132 L Chloride Carbon Dioxide BUN Glucose 136 H POC Capillary Glucose 147 H Hemoglobin A1c 7.8 H Calcium 8.3 L Magnesium Troponin I 3.130 H* 3.070 H* NT-Pro-B Natriuret Pep Albumin 3.4 L TSH (Reflex) Urine Glucose (UA) 02/16/25 02/17/25 02/17/25 20:12 03:56 07:22 WBC 13.1 H Hct Plt Count MPV Immature Gran % (Auto) Neut % (Auto) Lymph % (Auto) 15.5 L [place] % (Auto) 10.5 H [place] # (Auto) 1.4 H Eos # (Auto) 0.5 H Abs Immat Gran (auto) 0.06 H Absolute Neuts (auto) 9.1 H D-Dimer ABG pCO2 ABG pO2 ABG HCO3 ABG O2 Saturation Oxyhemoglobin Carboxyhemoglobin Reduced Hemoglobin Sodium 135 L Chloride 97 L Carbon Dioxide 31 H BUN Glucose 117 H POC Capillary Glucose 211 H 135 H Hemoglobin A1c Calcium 8.3 L Magnesium Troponin I NT-Pro-B Natriuret Pep Albumin TSH (Reflex) Urine Glucose (UA) 02/17/25 02/17/25 02/17/25 10:53 15:10 19:54 WBC Hct Plt Count MPV Immature Gran % (Auto) Neut % (Auto) Lymph % (Auto) [place] % (Auto) [place] # (Auto) Eos # (Auto) Abs Immat Gran (auto) Absolute Neuts (auto) D-Dimer ABG pCO2 ABG pO2 ABG HCO3 ABG O2 Saturation Oxyhemoglobin Carboxyhemoglobin Reduced Hemoglobin Sodium Chloride Carbon Dioxide BUN Glucose POC Capillary Glucose 130 H 219 H 194 H Hemoglobin A1c Calcium Magnesium Troponin I NT-Pro-B Natriuret Pep Albumin TSH (Reflex) Urine Glucose (UA) 02/18/25 02/18/25 02/18/25 04:07 07:22 11:22 WBC 14.3 H Hct Plt Count MPV Immature Gran % (Auto) Neut % (Auto) Lymph % (Auto) 13.5 L [place] % (Auto) 9.8 H [place] # (Auto) 1.4 H Eos # (Auto) 0.5 H Abs Immat Gran (auto) 0.07 H Absolute Neuts (auto) 10.3 H D-Dimer ABG pCO2 ABG pO2 ABG HCO3 ABG O2 Saturation Oxyhemoglobin Carboxyhemoglobin Reduced Hemoglobin Sodium 135 L Chloride Carbon Dioxide BUN Glucose 129 H POC Capillary Glucose 127 H 258 H Hemoglobin A1c Calcium Magnesium 2.5 H Troponin I NT-Pro-B Natriuret Pep 1060 H Albumin TSH (Reflex) Urine Glucose (UA) 02/18/25 02/18/25 02/19/25 16:26 20:03 06:39 WBC 14.0 H Hct 53.3 H Plt Count MPV Immature Gran % (Auto) Neut % (Auto) Lymph % (Auto) [place] % (Auto) [place] # (Auto) Eos # (Auto) Abs Immat Gran (auto) Absolute Neuts (auto) D-Dimer ABG pCO2 ABG pO2 ABG HCO3 ABG O2 Saturation Oxyhemoglobin Carboxyhemoglobin Reduced Hemoglobin Sodium Chloride Carbon Dioxide BUN 23 H Glucose 140 H POC Capillary Glucose 226 H 299 H Hemoglobin A1c Calcium Magnesium Troponin I NT-Pro-B Natriuret Pep 889 H Albumin TSH (Reflex) Urine Glucose (UA) 02/19/25 02/19/25 02/19/25 07:39 11:26 16:12 WBC Hct Plt Count MPV Immature Gran % (Auto) Neut % (Auto) Lymph % (Auto) [place] % (Auto) [place] # (Auto) Eos # (Auto) Abs Immat Gran (auto) Absolute Neuts (auto) D-Dimer ABG pCO2 ABG pO2 ABG HCO3 ABG O2 Saturation Oxyhemoglobin Carboxyhemoglobin Reduced Hemoglobin Sodium Chloride Carbon Dioxide BUN Glucose POC Capillary Glucose 171 H 161 H 229 H Hemoglobin A1c Calcium Magnesium Troponin I NT-Pro-B Natriuret Pep Albumin TSH (Reflex) Urine Glucose (UA) 02/19/25 02/20/25 02/20/25 20:23 05:26 07:45 WBC 15.6 H Hct 54.0 H Plt Count 377 H MPV Immature Gran % (Auto) Neut % (Auto) Lymph % (Auto) [place] % (Auto) [place] # (Auto) Eos # (Auto) Abs Immat Gran (auto) Absolute Neuts (auto) D-Dimer ABG pCO2 ABG pO2 ABG HCO3 ABG O2 Saturation Oxyhemoglobin Carboxyhemoglobin Reduced Hemoglobin Sodium 135 L Chloride Carbon Dioxide BUN 29 H Glucose 130 H POC Capillary Glucose 173 H 169 H Hemoglobin A1c Calcium Magnesium Troponin I NT-Pro-B Natriuret Pep 809 H Albumin TSH (Reflex) Urine Glucose (UA) 02/20/25 02/20/25 02/20/25 11:49 16:52 20:25 WBC Hct Plt Count MPV Immature Gran % (Auto) Neut % (Auto) Lymph % (Auto) [place] % (Auto) [place] # (Auto) Eos # (Auto) Abs Immat Gran (auto) Absolute Neuts (auto) D-Dimer ABG pCO2 ABG pO2 ABG HCO3 ABG O2 Saturation Oxyhemoglobin Carboxyhemoglobin Reduced Hemoglobin Sodium Chloride Carbon Dioxide BUN Glucose POC Capillary Glucose 216 H 169 H 232 H Hemoglobin A1c Calcium Magnesium Troponin I NT-Pro-B Natriuret Pep Albumin TSH (Reflex) Urine Glucose (UA) 02/21/25 02/21/25 02/21/25 05:41 07:35 11:48 WBC 13.2 H Hct 53.7 H Plt Count 379 H MPV Immature Gran % (Auto) Neut % (Auto) Lymph % (Auto) [place] % (Auto) [place] # (Auto) Eos # (Auto) Abs Immat Gran (auto) Absolute Neuts (auto) D-Dimer ABG pCO2 ABG pO2 ABG HCO3 ABG O2 Saturation Oxyhemoglobin Carboxyhemoglobin Reduced Hemoglobin Sodium 136 L Chloride Carbon Dioxide BUN 31 H Glucose 143 H POC Capillary Glucose 174 H 167 H Hemoglobin A1c Calcium Magnesium Troponin I NT-Pro-B Natriuret Pep 686 H Albumin TSH (Reflex) Urine Glucose (UA)
[2025-02-21] MEDS: UMECLIDINIUM/VILANTEROL 62.5-25 MCG ELLIPTA 1 PUFF INHALATION (16:44)
[2025-02-21] MEDS: INSULIN ASPART (*BKC) 100 UNITS/ML SUB-Q (21:03)
[2025-02-22] VITALS (7 sets, daily range): BP systolic 106–126; BP diastolic 72–79; PULSE 74–84; RESP 16–26; TEMP 36.5–36.6; O2SAT 93–100
[2025-02-22 06:51] LABS: Hematocrit 54.5 % (42.0-52.0); Hemoglobin 17.8 g/dL (14.0-18.0); Mean Corpuscular HGB Conc 32.7 g/dl (32-36); Mean Corpuscular Hemoglobin 29.5 pg (26-34); Mean Corpuscular Volume 90.2 fl (80-100); Platelet Count Result 382 k/mm3 (150-375); Red Blood Count 6.04 M/mm3 (4.6-6.20); White Blood Count 12.5 K/mm3 (4.5-10.0)
[2025-02-22 07:11] LABS: Alanine Aminotransferase 28 U/L (6-50); Albumin Level 4.0 g/dL (3.5-5.1); Alkaline Phosphatase 112 U/L (38-126); Anion Gap 7 mmol/L (4-12); Aspartate Amino Transferase 38 U/L (17-59); Bilirubin,Total 1.0 mg/dL (0.2-1.3); Blood Urea Nitrogen 29 mg/dL (9-20); Calcium 9.0 mg/dL (8.4-10.2); Carbon Dioxide 31 mmol/L (22-30); Chloride 99 mmol/L (98-107); Estimated CRCL calculation 55 ml/min; Estimated Glomerular Filt Rate > 60; Glucose 140 mg/dL (65-110); Potassium 4.7 mmol/L (3.4-5.0); Sodium 137 mmol/L (137-145); Total Protein 8.0 g/dL (6.3-8.2)
--- NOTE | 2025-02-22 07:39 | P.DS_ITS ---
DS: Admitting Diagnosis Discharge Date 02/22/2025 Admitting Diagnosis SOB DS: Discharge Diagnosis Discharge Diagnosis (1) Acute respiratory failure: Code(s): J96.00 - Acute respiratory failure, unspecified whether with hypoxia or hypercapnia Status: Acute Assessment and Plan: Please refer to hospital course for brief summary Secondary to CHF exacerbation Currently on 6 liters oxygen and requiring higher for ambulation Wean oxygen as able Started Lasix 40 mg p.o. q.d. (2) Leukocytosis: Code(s): D72.829 - Elevated white blood cell count, unspecified Status: Acute Assessment and Plan: No pneumonia seen on CT UA no signs of infection Denies fevers chills nausea vomiting (3) Hyponatremia: Code(s): E87.1 - Hypo-osmolality and hyponatremia Status: Acute Assessment and Plan: Will treat with diuretics (4) Hyperglycemia: Code(s): R73.9 - Hyperglycemia, unspecified Status: Acute Assessment and Plan: Doreen-Irena garcia HS SSI Plan NSTEMI with CAD Cardiac cath showed total occlusion of LCX Aspirin, Plavix, Lipitor cardiology following Ischemic cardiomyopathy with exacerbation ECHO showed EF 35-40% Cardiac cath showed totoal occlusion of LCX on medical treatment Continue Lasix, Entresto, Spironolactone, Jardiance cardiology following Acute hypoxemic respiratory failure from CHF continue Diuretics and titrate oxygen with clinical course On 6 liters this morning Unable to increase Lasix of 40 mg p.o. q.d. to b.i.d. due to soft blood pressure Continue Lasix 40 mg p.o. q.d. Bradyarrhythmia EKG showed high grade AV block now in sinus rhythm no BB and monitor DVT prophylaxis on Sq Lovenox DS: Summary Hospital Course Hospital Course: 64-year-old male with no known prior cardiac history; heavy tobacco abuse presented with 2 day history of shortness of breath and cough with expectoration. Influenza A/B and COVID negative.CT negative for PE. NTproBNP elevated. EKG showed sinus rhythm, high-grade AV block with junctional escape rhythm. On telemetry, he has been in sinus rhythm with PVCs.Patient's troponins were elevated. 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 On echocardiogram, patient was found to have moderate LV systolic dysfunction with LVEF 35-40%.Patient continues to require O2 6L NC, resumed lasix, with improvement in breathing. . His pBNP remains elevated and CT chest reviewed and demonstrated mild pulmonary edema . Unable to increase Lasix due to soft blood pressure. Pulmonology consulted and below are the following recommendation.Regarding diabetes started Metformin 500mg PO BID and informed the side effects of Metformin. Informed increase of dosage of Metformin with PCP.Patient is discharged with Prednisone 40mg PO QD x 4 days. Pulmonary recommendation: 1. Stop ipratropium/ albuterol nebulized q.6 hours scheduled. 2. Start Anoro 1 puff same time daily; this is for presumed COPD. He has a 40 year history of smoking 1.5 packs per day, total of 60 pack years. 3. Start albuterol inhaler 2 puffs q.6 hours p.r.n. shortness of breath or wheezing 4. Home oxygen study today Oct shows that he needs 4 L at rest, 5 L with exertion. 5. Add Cornet valve, instructed in use, 10 exhalations Q i.d. for pulmonary hygiene. He has a chronic cough at home which is productive with yellow sputum; he can use the Cornet at home for airway clearance. 6. 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 7. He can follow up in the pulmonary office in 3-4 weeks. Will plant to get PFT when he is at baseline. Will also repeat O2 evaluation, 6MW. I told him that we may be able to get him off O2 after he goes home and improves. 8. Tobacco cessation; really important michele with new systolic CHF, EF 35-40% and hypoxemia. 9. With low EF, it is important to know if he has sleep disordered breathing. Low EF and central/obstructive sleep apnea overlap, treating each improves the other. I will request overnight sleep study on his 4 L tonight, review in the morning before he goes home. 10. I will order a dose of prednisone for the am, and he can have a short taper at home, 40 mg x 5 days with breakfast. On the day of discharge, the patient was seen and examined. Vital signs were stable. Physical exam were stable and labs were reviewed at length. Discharge instructions, medications, and follow-up appointments were discussed with the patient at length and all day questions were answered. ER warnings were given. Time Spent with Patient Time attestation: Total time spent providing and/or coordinating discharge services:45 minutes Exam Narrative: General: well appearing, appears stated age. HEENT: normocephalic, atraumatic. Mucous membranes moist. EOMI, PERRLA, bilateral sclera anicteric, no conjunctival injection. Neck supple without JVD, lymphadenopathy, or bruit. Respiratory: clear to ascultation bilaterally. No rales/rhonic/wheezes. Cardiovascular: Regular rate and rhythm, normal S1-S2 upon ascultation. No murmurs, rubs, or clicks. PMI is nondisplaced, capillary refill less than 3 second. Abdomen: Soft, round, no pulsatile masses, nondistended and nontender. No rebound, no guarding. No CVA tenderness, no hepatosplenomegaly. Bowel sounds present to all four quadrants. No high pitch or tinkling sounds, resonant to percussion. Extremities: No cyanosis, clubbing, or edema present. Pulses are palpable 2/2. Active ROM to all four extremities. Neuro: Alert and orientated x 4. PERRLA. Cranial nerves 2-12 intact without focal deficit. Skin: Warm, dry, and intact, without rash, erythema, or lesion. Psych: pleasant, cooperative, normal speech, normal affect, no hallucinations, no dysarthia 4 L nasal cannula DS: Data Data Completed and Pending Labs on day of discharge: Labs from last 24 hours 02/22/25 02/21/25 02/21/25 06:43 20:20 16:47 WBC 12.5 H RBC 6.04 Hgb 17.8 Hct 54.5 H MCV 90.2 MCH 29.5 MCHC 32.7 RDW 13.2 Plt Count 382 H MPV 9.5 Sodium 137 Potassium 4.7 Chloride 99 Carbon Dioxide 31 H Anion Gap 7 BUN 29 H Creatinine 1.17 Estim Creat Clear Calc 55 Estimated GFR > 60 Glucose 140 H POC Capillary Glucose 252 H 156 H Calcium 9.0 Total Bilirubin 1.0 AST 38 ALT 28 Alkaline Phosphatase 112 Total Protein 8.0 Albumin 4.0 Vcgyf-[id number]-Wqcanjdkcyy Pending Alpha-1-AT Phenotype Pending 02/21/25 02/21/25 11:48 07:35 WBC RBC Hgb Hct MCV MCH MCHC RDW Plt Count MPV Sodium Potassium Chloride Carbon Dioxide Anion Gap BUN Creatinine Estim Creat Clear Calc Estimated GFR Glucose POC Capillary Glucose 167 H 174 H Calcium Total Bilirubin AST ALT Alkaline Phosphatase Total Protein Albumin Wwvzz-0-Mdtoaouxosd Alpha-1-AT Phenotype Imaging Radiologist's impression: ITS Impressions Chest X-Ray 02/14/25 07:41 IMPRESSION: 1. Interstitial pulmonary edema and/or pneumonitis. 2. Mild cardiomegaly. Chest CTA 02/14/25 08:13 IMPRESSION: 1. No PE identified. 2. Interstitial pulmonary edema. 3. Moderate pleural effusions. 4. Cardiomegaly. Chest CT 02/18/25 10:16 IMPRESSION: 1. Likely termination mild atelectasis and mild pulmonary edema along with tiny bilateral pleural effusions in the dependent lower lungs. 2. Mild emphysema. 3. Small pericardial effusion. Chest X-Ray 02/18/25 11:16 Impression: No acute cardiopulmonary abnormality. Venous Doppler Study 02/19/25 19:29 IMPRESSION: Noncompressible vessel within the antecubital fossa may represent thrombus. There was no sonographic evidence of deep vein thrombosis in the right upper ex tremity. Discharge Plan Discharge Attending physician on discharge: Alex Arrington Consulting providers: Lakeisha Lobo; Jessica Palafox Discharging Clinician: Alex Arrington Anticipated Discharge Date/Time: 02/22/25 13:53 Patient Disposition: Home Activity: as tolerated Diet: heart healthy Discharge Instructions: [facility] [address] [place] [address] DISCHARGE INSTRUCTIONS - POST CARDIAC CATH Activity Restriction 1. No Driving for 24 hours 2. No lifting, pushing or pulling more than 10 LBS for 1 week 3. No strenuous activity or exercising for 1 week 4. Shower after 24 hours, do not soak in any water such as hot tubs or bath tubs Wound Care 1. Remove dressing 24 hours after your procedure prior to showering 2. Lather soap and water to puncture site and rinse then pat dry 3. You may apply a new band aid to the site and remove after 24 hours then leave open to air 4. Monitor daily for redness, drainage, mild swelling and fever Report IMMEDIATELY: CALL 911 1. If you experience any swelling or bleeding from puncture site. Hold firm pressure over the puncture site until help arrives 2. If you experience any new discomfort in you back, neck, jaw, stomach or arm. Any shortness of breath, nausea, vomiting, or cold sweats 3. If you experience any swelling, tenderness, or numbness in your leg or if your leg becomes cold or has color changes. Follow Up 1. Follow your doctors discharge instructions on resuming your medications. Some medications will need to be held after your procedure 2. Follow up with the office to schedule your next appointment with your doctor 3. Drink plenty of water following your procedure, avoid alcohol If you received a stent or a closure device keep your card with you such as in your wallet. Present your card to your doctor appointments to update your health care information. *For any other questions please call the office at [phone]. Office hours are 8AM 4:30PM Monday through Monday. Patient needs to follow-up with the pulmonology for assessment of oxygen as outp atient and for COPD management. Patient needs to follow-up with cardiology within a week upon discharge. Also follow up with PCP within a week upon discharge Regarding diabetes, started Metformin 500 mg PO BID and advised to follow up PCP for further increase of dosage.Informed about side effects. In the event of any concerning symptoms please return to ED Patient Instructions: Antibiotic Form, Spironolactone (By mouth), Aspirin (By mouth), Atorvastatin (By mouth), Clopidogrel (By mouth), Empagliflozin (By mouth), Sacubitril/Valsartan (By mouth), Heart Attack (GEN), Heart Failure (GEN), Heart Catheterization (GEN) Patient Language: Brazilian Stand Alone Forms: General Discharge Information Follow-up/Referrals: Jessica Palafox MD [Physician, Pulmonology] Lakeisha Lobo APN-C [Advanced Practice Nurse, Cardiology] PHYSICIAN,MANAGER UNIX [Primary Care Provider, Internal Medicine] Discharge Medications: New atorvastatin 40 mg Tablet 40 mg PO DAILY Qty: 30 0RF clopidogrel 75 mg Tablet 75 mg PO QAM Qty: 30 0RF aspirin 81 mg Tablet,Delayed Release (Dr/Ec) 81 mg PO QAM Qty: 30 0RF Jardiance 10 mg Tablet 10 mg PO DAILY Qty: 30 0RF furosemide 40 mg Tablet 40 mg PO DAILY Qty: 30 0RF prednisone 20 mg Tablet 40 mg PO DAILY@0800 Qty: 8 0RF spironolactone 25 mg Tablet 25 mg PO QAM Qty: 30 0RF umeclidinium-vilanterol [Anoro Ellipta] 62.5-25 mcg/actuation Blister With Device 1 inh inhalation DAILYRT Qty: 60 0RF sacubitril-valsartan [Entresto] 24-26 mg Tablet 1 tab PO Q12HR Qty: 30 0RF albuterol sulfate [Ventolin HFA] 90 mcg/actuation HFA aerosol inhaler 1 inh inhalation QID PRN (Reason: shortness of breath or wheezing) Qty: 8.5 0RF metformin 500 mg tablet 500 mg PO BID Qty: 60 0RF Date of admission: 02/16/25 15:47 Primary Care Provider: PHYSICIAN,MANAGER UNIX Admitting Provider: Tucker Murray Attending physician on admission: Tucker Murray Condition: Stable
[2025-02-22] MEDS: FUROSEMIDE 40 MG TABLET PO (08:24)
[2025-02-22] MEDS: CLOPIDOGREL BISULFATE 75 MG TABLET PO (08:24)
[2025-02-22] MEDS: SPIRONOLACTONE 25 MG TABLET PO (08:24)
[2025-02-22] MEDS: SACUBITRIL/VALSARTAN 24-26 MG TABLET 1 TAB PO (08:24)
[2025-02-22] MEDS: ENOXAPARIN 40 MG/0.4 ML SYRINGE SUB-Q (08:24)
[2025-02-22] MEDS: ASPIRIN 81 MG ENTERIC TABLET PO (08:25)
[2025-02-22] MEDS: EMPAGLIFLOZIN 10 MG TABLET PO (08:25)
[2025-02-22] MEDS: ATORVASTATIN 40 MG TABLET PO (08:25)
[2025-02-22] MEDS: INSULIN ASPART (*BKC) 100 UNITS/ML SUB-Q (11:51)
--- NOTE | 2025-02-22 13:40 | P.PNPL_ITS ---
Progress Note: A&P Assessment and Plan (1) Hypoxia: Code(s): R09.02 - Hypoxemia Status: Acute Assessment and Plan: He has not used O2 in the past, admitted 02/14, has needed O2 since then, amount varies. His home oxygen study 02/21 showed that he needs 4 L at rest and 5 L with exertion. This patient is smoke for years, has not seen a doctor for about 15 years. I think that he may have baseline hypoxemia but this was not known until he was admitted with acute congestive heart failure and he may have underlying COPD. He has a daily cough with yellow sputum production, may have chronic bronchitis. His ApneaLink recorded 5 hours 39 min, 91 minutes below 88% while using O2 at 4 L/minute. The monitor that records flow was not reporting correctly, so the type of apneas were not reported, but the AHI was 41, DINA oxygen desaturation index was 18 with lowest sat 77%, 91 min below 88%. (2) Tobacco abuse: Code(s): Z72.0 - Tobacco use Status: Acute Assessment and Plan: He has a 40 year history of smoking 1.5 packs per day, total of 60 pack years, last smoked before this admission. I provided written information re: tobacco cessation. Stopping smoking is the most important choice you can make for your health. There is a financial cost, as well as the impact on your health, health of family members and your pets. We recommend picking a quit date, eliminating tobacco from your house, finding alternative activities when you have a craving, and knowing that a craving lasts 5-6 minutes. Nicotine replacement therapy can be helpful, including patches, lozenges, gum and inhalers. 3-081-FXHQHYV is a toll free number with a live person who will talk with you about stopping smoking. (3) Short of breath on exertion: Code(s): R06.02 - Shortness of breath Status: Acute Assessment and Plan: He reports more shortness of breath with exertion over the last few years, can walk up 1 flight of stairs, but 2 flights would be a struggle. Probably a mix of heart and lung disease. HE feels better as far as shortness of rbeath since admission. Plan plan: 1. Ok to go home today, follow up with pulmonary in 3-4 weeks in the office. Will plan PFT, 6MW see if he can get O2 weaned, now on 4 L at rest, 5 L with exertion. 2. Continue Anoro 1 puff same time daily; this is for presumed COPD. He has a 40 year history of smoking 1.5 packs per day, total of 60 pack years. 3. Start albuterol inhaler 2 puffs q.6 hours p.r.n. shortness of breath or wheezing 4. Take the Cornet valve home, continue to use to reduce secretions. He has a chronic cough at home which is productive with yellow sputum; he can use the Cornet at home for airway clearance. 5. Alpha-1 phenotype sent today, results pending. 6. Tobacco cessation; really important michele with new systolic CHF, EF 35-40% and hypoxemia. Information given. Stopping smoking is the most important choice you can make for your health. There is a financial cost, as well as the impact on your health, health of family members and your pets. We recommend picking a quit date, eliminating tobacco from your house, finding alternative activities when you have a craving, and knowing that a craving lasts 5-6 minutes. Nicotine replacement therapy can be helpful, including patches, lozenges, gum and inhalers. 6-661-LLMEOPN is a toll free number with a live person who will talk with you about stopping smoking. 7. With low EF, it is important to know if he has sleep disordered breathing. Low EF and central/obstructive sleep apnea overlap, treating each improves the other. His Apnealink had technical problems, however the small amunt of time he used it shows 5 hours 39 min, 91 minutes below 88% while using O2 at 4 L/minute. The monitor that records flow was not reporting correctly, so the type of apneas were not reported, but the AHI was 41, DINA oxygen desaturation index was 18 with lowest sat 77%, 91 min below 88%. 8. Continue short course of am prednisone 40 mg for the next 4 days. Subjective Date/time seen: 02/22/25 13:28 Interval history: 02/21/2025; new; Moi Aguilar is a 38-salt-bpv-man who smokes, 1.5 packs per day since the age of 24, admitted Feb 14 through ED with shortness of breath for 2 days with more sputum compared to his baseline productive cough. had acute CHF, new diagnosis, EF 35-40%. His weight was 84.1 kg, and today Feb 21 down to 80.6 with diuresis. He had a Home O2 evaluation today, needed 4 L at rest and 5 L with exertion. This morning, Feb 21 his sat was 82% on 4 L , increased to 5 L. since admission he has been on albuterol and ipratropium nebulized q.6 hours. At home he coughs daily, 1 tsp of yellowish sputum multiple times per day probably up to a quarter cup most days. He does not have recurrent pneumonia, never had a history of asthma but he grew up in smoke. 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 He does notice some wheezing at home. Rarely he wakes at night coughing but not really for shortness of breath. Sleep: He estimates getting 7 hours of sleep at night. He does not really have dream recall. He wakes twice at night to urinate. He avoids naps during the week, he tries to take a 20 minutes nap on the weekends. Tobacco: 1.5 ppd age 24 x 64, 40 years, 60 pack years. 02/22/2025; Patient is seen in follow up, he feels better today, ready to go home. I gave him tobacco cessation information from [employer], the 1-800QUITNOW number, and general information about cessation. His ApneaLink devicce was on > 7 hours however it did not capture enough adequate data for interpretation. He had a minimum saturation of 77% wearing 4 L/min overnight. He likely has sleep- isrodered breathing, and I talked with him about getting sleep testing after discharge. I gave him out office number, and told him to call for an appt. DATA * 02/18/2025. CXR ; no acute cardiopulmonary findings * 02/14/25 echo; Mild LV enlargement, mild LVH, moderate LV systolic dysfunction, EF 35-40%; diastolic dysfunction is present. Inferior wall appears to be hypokinetic. Mild biatrial enlargement. Bubble study was performed, somewhat inadequate with suboptimal image quality, no large interatrial shunt was noted. Mild MR. Aortic valve is mildly sclerotic, mild aortic valve stenosis, maximum velocity 1.6 m/sec, mean gradient 11 mmHg. Unable to assess RVSP due to inadequate TR jet Dilated IVC. * 02/18/25; CTA ;IMPRESSION: 1. Likely termination mild atelectasis and mild pulmonary edema along with tiny bilateral pleural effusions in the dependent lower lungs. 2. Mild emphysema. 3. Small pericardial effusion. * 02/19/25; UE Dopplers; There was no sonographic evidence of deep vein thrombosis in the right upper extremity. Review of Systems Review of Systems: All systems reviewed & are unremarkable except as noted in HPI and below Exam Narrative: GEN: Alert, oriented, not in distress. He is reclining in bed, not in respiratory distress. Nasal cannula 4 L/minute, saturation 92-94%. HEENT: pupils are equal, EOMI, symmetrical face; oral membranes moist NECK: Trachea is midline CHEST: Equal air entry, symmetric excursion, fewer faint wheezes. No crackles CV: Regular S1S2 no m/g/r Extremities : no clubbing, cyanosis, or edema. No calf tenderness. His hands are warm, good capillary refill PSYCH: normal thought and speech, gait not tested. Objective Data Vital Signs Vital Signs: Vital Signs - 24 hr 02/21/25 16:00 02/21/25 17:00 02/21/25 20:00 Temperature Pulse Rate 77 Respiratory Rate Blood Pressure Pulse Oximetry 94 94 Oxygen Delivery High Flow Therapy with Na Nasal Cannula Oxygen Flow Rate 4 4 Fraction of Inspired Oxygen 02/21/25 20:00 02/21/25 21:34 02/21/25 22:22 Temperature 36.2 C L Pulse Rate 78 78 62 Respiratory Rate 19 Blood Pressure 115/69 Pulse Oximetry 94 92 Oxygen Delivery High Flow Nasal Cannula Oxygen Flow Rate 4 Fraction of Inspired Oxygen 02/22/25 00:00 02/22/25 04:00 02/22/25 05:31 Temperature 36.6 C Pulse Rate 76 74 75 Respiratory Rate 16 Blood Pressure 106/72 Pulse Oximetry 93 Oxygen Delivery Oxygen Flow Rate Fraction of Inspired Oxygen 02/22/25 08:00 02/22/25 08:15 02/22/25 12:00 Temperature Pulse Rate 74 84 Respiratory Rate Blood Pressure Pulse Oximetry 94 Oxygen Delivery High Flow Nasal Cannula Oxygen Flow Rate 4 Fraction of Inspired Oxygen 44 Intake/Output Intake/Output: Intake & Output 02/19/25 02/20/25 02/21/25 02/22/25 23:59 23:59 23:59 23:59 Intake Total 1080 1800 1260 1740 Output Total 2900 1875 1375 1100 [facility] -1820 -75 -115 640 Meds/Results Medications: Active Medications Generic Name Dose Route Start Last Admin Trade Name Freq PRN Reason Stop Dose Admin Acetaminophen 650 mg 02/14/25 15:07 Acetaminophen 325 Mg Tablet PO Q4H PRN Mild Pain (1-3) or Fever Albuterol 2 puff 02/21/25 16:32 Albuterol Sulfate (*Sp) Aerosol 1 Puff INHALATION Q6HRT PRN Shortness Of Breath Aspirin 81 mg 02/16/25 09:00 02/22/25 08:25 Aspirin 81 Mg Enteric Tablet PO 81 mg QAM DEYA Administration Atorvastatin Calcium 40 mg 02/16/25 09:00 02/22/25 08:25 Atorvastatin 40 Mg Tablet PO 40 mg DAILY DEYA Administration Clopidogrel Bisulfate 75 mg 02/15/25 13:40 02/22/25 08:24 Clopidogrel Bisulfate 75 Mg Tablet PO 75 mg QAM DEYA Administration Dextrose 12.5 gm 02/16/25 12:49 Dextrose 50% 25 Gm/50 Ml Syringe IV PUSH PRN PRN Hypoglycemia Protocol Docusate Sodium 100 mg 02/14/25 15:07 Docusate Sodium 100 Mg Capsule PO BID PRN Constipation Empagliflozin 10 mg 02/16/25 09:00 02/22/25 08:25 Empagliflozin 10 Mg Tablet PO 10 mg DAILY DEYA Administration Enoxaparin Sodium 40 mg 02/15/25 09:00 02/22/25 08:24 Enoxaparin 40 Mg/0.4 Ml Syringe SUB-Q 40 mg DAILY DEYA Administration Furosemide 40 mg 02/22/25 09:00 02/22/25 08:24 Furosemide 40 Mg Tablet PO 40 mg DAILY DEYA Administration Glucagon 1 mg 02/16/25 12:49 Glucagon For Inj 1 Mg Vial IM PRN PRN Hypoglycemia Protocol Glucose 15 gm 02/16/25 12:49 Glucose Oral Gel 15 Gm Of Glucse In 37.5 Gm Tube PO PRN PRN Hypoglycemia Protocol Dextrose 1,000 mls @ 100 mls/hr 02/16/25 12:49 Dextrose 5% 1,000 Ml IVPB PRN PRN Hypoglycemia Protocol Insulin Aspart 2 - 5 units 02/16/25 17:00 02/22/25 11:51 Insulin Aspart (*Bkc) 100 Units/Ml SUB-Q 2 units TIDWM DEYA Administration Protocol Insulin Aspart 1 - 2 units 02/16/25 21:00 02/21/25 21:03 Insulin Aspart (*Bkc) 100 Units/Ml SUB-Q 1 units HS DEYA Administration Protocol Prednisone 40 mg 02/22/25 08:00 02/22/25 08:30 Prednisone 20 Mg Tablet PO 40 mg DAILY@0800 DEYA Administration Sacubitril/Valsartan 1 tab 02/15/25 21:00 02/22/25 08:24 Sacubitril/Valsartan 24-26 Mg Tablet PO 1 tab Q12HR DEYA Administration Spironolactone 25 mg 02/16/25 09:00 02/22/25 08:24 Spironolactone 25 Mg Tablet PO 25 mg QAM DEYA Administration Umeclidinium/Vilanterol 1 puff 02/21/25 16:30 02/21/25 16:44 Umeclidinium/Vilanterol 62.5-25 Mcg Ellipta INHALATION 1 puff DAILYRT DEYA Administration Radiology Results: ITS Impressions Chest CTA 02/14/25 08:13 IMPRESSION: 1. No PE identified. 2. Interstitial pulmonary edema. 3. Moderate pleural effusions. 4. Cardiomegaly. Chest CT 02/18/25 10:16 IMPRESSION: 1. Likely termination mild atelectasis and mild pulmonary edema along with tiny bilateral pleural effusions in the dependent lower lungs. 2. Mild emphysema. 3. Small pericardial effusion. Chest X-Ray 02/18/25 11:16 Impression: No acute cardiopulmonary abnormality. Venous Doppler Study 02/19/25 19:29 IMPRESSION: Noncompressible vessel within the antecubital fossa may represent thrombus. There was no sonographic evidence of deep vein thrombosis in the right upper extremity. Labs Labs: Laboratory Results - last 24 hr 02/21/25 02/21/25 02/22/25 16:47 20:20 06:43 WBC 12.5 H RBC 6.04 Hgb 17.8 Hct 54.5 H MCV 90.2 MCH 29.5 MCHC 32.7 RDW 13.2 Plt Count 382 H MPV 9.5 Sodium 137 Potassium 4.7 Chloride 99 Carbon Dioxide 31 H Anion Gap 7 BUN 29 H Creatinine 1.17 Estim Creat Clear Calc 55 Estimated GFR > 60 Glucose 140 H POC Capillary Glucose 156 H 252 H Calcium 9.0 Total Bilirubin 1.0 AST 38 ALT 28 Alkaline Phosphatase 112 Total Protein 8.0 Albumin 4.0 02/22/25 02/22/25 07:35 11:40 WBC RBC Hgb Hct MCV MCH MCHC RDW Plt Count MPV Sodium Potassium Chloride Carbon Dioxide Anion Gap BUN Creatinine Estim Creat Clear Calc Estimated GFR Glucose POC Capillary Glucose 144 H 207 H Calcium Total Bilirubin AST ALT Alkaline Phosphatase Total Protein Albumin
== END 2025-02-22 15:20 | disposition home or self-care (01) | DRG 250 ==
LOC: ANHED 07:34 → ANHIMU 10:07 → ANHICU 02-15 12:21 → ANHIMU 02-15 21:52 → ANH3MEDSUR 02-19 09:44 → ANHIMU 02-24 09:55
PROVIDERS: Internal Medicine Cardiovascular Disease; Internal Medicine Critical Care Medicine; Nurse Practitioner Family; Nurse Practitioner Gerontology; Student in an Organized Health Care Education/Training Program; Admitting Provider Internal Medicine; Emergency Provider Emergency Medicine; Visit Provider General Practice
PROC: 4A023N7 Measurement of Cardiac Sampling and Pressure, Left Heart, Percutaneous Approach (ICD-10-PCS; CPT 93452; principal; 2025-02-15 11:50)
PROC: 02703ZZ Dilation of Coronary Artery, One Artery, Percutaneous Approach (ICD-10-PCS; CPT 92920; 2025-02-15 11:50)
DX: I21.4 Non-ST elevation (NSTEMI) myocardial infarction (principal); J96.01 Acute respiratory failure with hypoxia; J81.1 Chronic pulmonary edema; E87.1 Hypo-osmolality and hyponatremia; I50.20 Unspecified systolic (congestive) heart failure; D72.829 Elevated white blood cell count, unspecified; F17.210 Nicotine dependence, cigarettes, uncomplicated; I44.39 Other atrioventricular block; I25.5 Ischemic cardiomyopathy; I25.10 Atherosclerotic heart disease of native coronary artery without angina pectoris; J43.9 Emphysema, unspecified; Z20.822 Contact with and (suspected) exposure to COVID-19; Z79.82 Long term (current) use of aspirin; Z79.02 Long term (current) use of antithrombotics/antiplatelets; Z79.84 Long term (current) use of oral hypoglycemic drugs
CPT/HCPCS: 36415; 36600; 71045; 71250; 71275; 80048; 80053; 81001; 82103; 82104; 82375; 82805; 82948; 83036; 83050; 83605; 83735; 83880; 84132; 84439; 84443; 84480; 84484; 85018; 85025; 85027; 85380; 85610; 85730; 87637; 92920; 93005; 93458; 93971; 94618; 94640; 94762; 96361; 96372; 96374; 96375; 97161; 99285; A9270; C1725; C1769; C1887; C1894; C8929; G0378; J0583; J1644; J1650; J1815; J1938; J2003; J2250; J2305; J3010; J7030; J7040; J7120; J7512; Q9957; Q9967